=== PATIENT | female | born 1940 | race Caucasian/White ===

== ENCOUNTER → 2018-04-04 07:53 | Outpatient (CLI) | payer OTHER, SELFPAY ==
[2018-04-04 09:48] LABS: Hemoglobin A1C% w Est Avg Glu 5.7 % (4.0-6.0)
[2018-04-04 10:03] LABS: Glucose 96 mg/dL (80-110)
== END ==
PROVIDERS: Family Provider Internal Medicine; PCP Internal Medicine; Visit Provider Internal Medicine
DX: R73.01 Impaired fasting glucose (principal)
CPT/HCPCS: 36415; 82947; 83036

== ENCOUNTER → 2018-07-06 11:56 | Outpatient (CLI) | payer OTHER, SELFPAY ==
--- NOTE | 2018-07-06 | DI.MG.S_ITS ---
BILATERAL DIGITAL SCREENING MAMMOGRAM 3D/2D WITH CAD: 07/06/2018 CLINICAL: Routine screening. Family history of breast cancer. Comparison is made to exams dated: 06/29/2017 mammogram, 06/27/2016 mammogram, and 06/25/2015 mammogram - [facility]. The tissue of both breasts is heterogeneously dense. This may lower the sensitivity of mammography. Current study was also evaluated with a Computer Aided Detection (CAD) system. There is a focal asymmetry in the right breast at 12 o'clock middle depth. No other significant masses, calcifications, or other findings are seen in either breast. IMPRESSION: INCOMPLETE: NEEDS ADDITIONAL IMAGING EVALUATION The focal asymmetry in the right breast is indeterminate. Additional views with possible ultrasound are recommended. This exam was interpreted at Station ID: [id number]. NOTE: For mammograms, a report in lay terms will be sent to the patient. Approximately 15% of breast malignancies will not be visualized mammographically. In the management of a palpable breast mass, a negative mammogram must not discourage biopsy of a clinically suspicious lesion. Electronically Signed By: Camila palomino/carlos alberto:07/07/2018 09:28:46 letter sent: Additional Imaging Needed ACR BI-RADS Category 0: Incomplete 3340F
== END ==
PROVIDERS: PCP Internal Medicine; Visit Provider Internal Medicine
DX: Z12.31 Encounter for screening mammogram for malignant neoplasm of breast (principal); Z80.3 Family history of malignant neoplasm of breast
CPT/HCPCS: 77063; 77067

== ENCOUNTER → 2018-07-18 10:34 | Outpatient (CLI) | payer OTHER, SELFPAY | PROVIDERS: PCP Internal Medicine; Visit Provider Obstetrics & Gynecology | DX: N89.8 Other specified noninflammatory disorders of vagina (principal) | CPT/HCPCS: 87070; 87077; 87186; 87205 ==

== ENCOUNTER → 2018-07-24 14:53 | Outpatient (CLI) | payer OTHER, SELFPAY ==
--- NOTE | 2018-07-24 | DI.US.S_ITS ---
LIMITED ULTRASOUND OF RIGHT BREAST: 07/24/2018 CLINICAL: Patient returns today to evaluate an asymmetry in the right breast, which resolved with additional diagnostic mammogram views. Comparison is made to exams dated: 07/24/2018 mammogram, 07/06/2018 mammogram, and 06/29/2017 mammogram - [facility]. Color flow and real-time ultrasound of the right breast 12 o'clock region were performed. Moy scale images of the real-time examination were reviewed. No underlying breast mass or abnormality is identified. There is no ultrasound correlate for the previously noted focal asymmetry in the right breast at 12 o'clock middle depth on comparison screening mammograms, which also resolved on additional diagnostic views performed earlier today. IMPRESSION: NEGATIVE There is no sonographic evidence of malignancy in the imaged portions of the right breast. Return to annual screening mammography is recommended. The patient is advised to monitor her breasts and to return sooner for re-evaluation should she feel anything grow or change. This exam was interpreted at Station ID: [id number]. Electronically Signed By: Jose Manuel Saldivar M.D. ecl/:07/24/2018 16:18:44 letter sent: Normal Exam Ultrasound BI-RADS: 1 Negative
--- NOTE | 2018-07-24 | DI.MG.S_ITS ---
UNILATERAL RIGHT DIGITAL DIAGNOSTIC MAMMOGRAM 3D/2D WITH ADDITIONAL VIEWS: 07/24/2018 CLINICAL: Additional evaluation requested from prior study. Family history of breast cancer. Comparison is made to exams dated: 07/06/2018 mammogram, 06/29/2017 mammogram, and 06/27/[address] mammogram - [facility]. The tissue of right breast is heterogeneously dense. This may lower the sensitivity of mammography. Previously noted focal asymmetry in the right breast at 12 o'clock middle depth on comparison screening mammogram resolves with additional views and likely represented superimposition of benign anatomic tissues. No significant masses, calcifications, or other findings are seen in the breast. IMPRESSION: INCOMPLETE: NEEDS ADDITIONAL IMAGING EVALUATION Previously noted focal asymmetry in the right breast at 12 o'clock middle depth on comparison screening mammogram resolves with additional views and likely represented superimposition of benign anatomic tissues. A targeted ultrasound is recommended and will be performed immediately following this exam. This exam was interpreted at Station ID: [id number]. NOTE: For mammograms, a report in lay terms will be sent to the patient. Approximately 15% of breast malignancies will not be visualized mammographically. In the management of a palpable breast mass, a negative mammogram must not discourage biopsy of a clinically suspicious lesion. Electronically Signed By: Jose Manuel Saldivar M.D. ecl/:07/24/2018 16:16:33 letter sent: Additional Imaging Needed ACR BI-RADS Category 0: Incomplete 3340F
== END ==
PROVIDERS: PCP Internal Medicine; Visit Provider Internal Medicine
DX: R92.8 Other abnormal and inconclusive findings on diagnostic imaging of breast (principal); Z80.3 Family history of malignant neoplasm of breast
CPT/HCPCS: 76642; 77065; G0279

== ENCOUNTER → 2018-09-27 08:16 | Outpatient (CLI) | payer OTHER, SELFPAY ==
[2018-09-27 09:38] LABS: Cholesterol 270 mg/dL (140-199); Cortisol AM (Before 10AM) 13.5 ug/dL (4.46-22.7); Glucose 112 mg/dL (80-110); HDL Cholesterol 46 mg/dL (40-60); LDL Cholesterol Calculated 198 mg/dL (<100); Triglycerides 130 mg/dL (35-150)
[2018-09-27 09:57] LABS: Vitamin B12 498 pg/mL (239-931)
[2018-09-27 11:33] LABS: Vitamin D 25 Hydroxy (D3) 36.1 ng/mL (30.0-100.0)
[2018-09-27 11:41] LABS: Thyroid Stimulating Hormone 0.53 uIU/mL (0.47-4.68)
[2018-09-27 11:46] LABS: Free T4, Direct Thyroxine 1.32 ng/dL (0.78-2.19)
[2018-09-29 16:25] LABS: Homocysteine 8.7 umol/L (< 10.4)
== END ==
PROVIDERS: PCP Internal Medicine; Visit Provider Internal Medicine
DX: E03.9 Hypothyroidism, unspecified (principal); E53.8 Deficiency of other specified B group vitamins; R73.01 Impaired fasting glucose
CPT/HCPCS: 36415; 80061; 82306; 82533; 82607; 82947; 83090; 84439; 84443; 84481

== ENCOUNTER → 2018-11-01 13:17 | Outpatient (CLI) | payer OTHER, SELFPAY ==
[2018-11-01 16:31] LABS: BUN Creatinine Ratio 18.6 (6-22); Blood Urea Nitrogen 13 mg/dL (7-17); Calcium 9.4 mg/dL (8.4-10.2); Carbon Dioxide 26 mmol/L (22-32); Chloride 101 mmol/L (98-107); Estimated Glomerular Filt Rate > 60.0 mL/min (>60); Glucose 87 mg/dL (80-110); HEMOLYSIS < 15 (0-50); Potassium 4.9 mmol/L (3.4-5.1); Sodium 137 mmol/L (137-145)
== END ==
PROVIDERS: PCP Internal Medicine; Visit Provider Urology
DX: N39.41 Urge incontinence (principal); R35.1 Nocturia; R33.9 Retention of urine, unspecified
CPT/HCPCS: 36415; 80048; 87077; 87086; 87186

== ENCOUNTER → 2018-11-08 16:06 | Outpatient (CLI) | payer OTHER, SELFPAY ==
[2018-11-10 20:23] LABS: Anti Thyroglobulin Antibody < 1 IU/mL (< 2); Thyroid Peroxidase Antibodies 1 IU/mL (< 9)
== END ==
PROVIDERS: PCP Internal Medicine; Visit Provider Internal Medicine
DX: E03.9 Hypothyroidism, unspecified (principal)
CPT/HCPCS: 36415; 86376; 86800

== ENCOUNTER 2019-01-04 09:34 | Emergency (ER) | payer OTHER, SELFPAY ==
[2019-01-04] VITALS (9 sets, daily range): BP systolic 122–182; BP diastolic 53–71; PULSE 59–71; RESP 11–23; TEMP 36.9; O2SAT 95–100
--- NOTE | 2019-01-04 10:08 | ED.CHESTPAIN ---
HPI - Chest Pain General Chief Complaint: Chest Pain Stated Complaint: think she's possibly having a heart attack. Time Seen by Provider: 01/04/19 09:53 Source: patient Mode of arrival: ambulatory Limitations: no limitations History of Present Illness HPI narrative: Is a 78-year-old female who presents with chest discomfort. She says she was chopping up a hard boiled egg when she got extremely short of breath diaphoretic and nauseous. She got all lightheaded felt like she might pass out but she did not. She did not vomit. She really had no severe chest pain. However she has educated herself on a woman with cardiovascular disease and thought this might be a heart attack. She has resisted taken statin. She actually had a calcium score done a few years ago she said it showed some mild to moderate blockage. She still did not take a statin. She was able to refer herself for repeat scan this month which now showed that she had high calcium deposits in that artery now. She is supposed to have an appointment with Cardiology in [place] Records received from [employer]. She actually did have a calcium scoring test done on 12/25/2018 she did score of 359. Up from her previous score in July of 2016 of 262 Pain radiation: none Relieving factors: rest Exacerbating factors: exertion Treatments prior to arrival chest pain: aspirin (patient took at home. ) Related Data Home Medications Medication Instructions Recorded Confirmed MULTIVITAMIN 1 cap PO QDAY #0 01/26/13 12/12/18 VITAMIN B COMPLEX (Vitamin B 1 tab PO QDAY #0 01/26/13 12/12/18 Complex) [VITAMIN C] 500 mg PO Q DAY #0 01/26/13 12/12/18 [VITAMIN D] 2,000 mg PO Q DAY #0 01/26/13 12/12/18 [VITAMIN E] Q DAY #0 01/26/13 12/12/18 OMEGA-3 FATTY ACIDS (FISH OIL) 1,000 mg PO #0 07/12/16 12/12/18 cyclosporine [Restasis] 1 drp OPHTH Q12H #0 07/12/16 12/12/18 [CO-Q 10] 300 mg PO QDAY #0 07/15/16 12/12/18 [CRANBERRY EXTRACT] 300 mg PO BID #0 07/15/16 12/12/18 cyanocobalamin (vitamin B-12) 1,000 mcg PO QDAY #0 07/15/16 12/12/18 levothyroxine 88 mcg tablet 75 mcg PO QAM #0 tab 04/17/18 12/12/18 conjugated estrogens 0.3 mg tablet 0.3 mg PO DAILY 07/18/18 12/12/18 progesterone micronized 100 mg 100 mg PO QAM 07/18/18 12/12/18 capsule Previous Rx's Medication Instructions Recorded CMP Estriol 0.2 See Rx Instructions .ROUTE 05/22/18 .COMPLEX #30 fluconazole 150 mg tablet 150 mg PO ONCE #2 tab 12/12/18 Allergies Allergy/AdvReac Type Severity Reaction Status Date / Time wheat Allergy Mild Verified 08/28/18 08:36 ciprofloxacin AdvReac Mild VOMITING Verified 08/28/18 08:36 fosfomycin [From Monurol] AdvReac Mild Diarrhea Verified 11/09/18 11:27 gluten [GLUTEN] AdvReac Mild DIARRHEA, Verified 08/28/18 08:36 BLOATING hydrocodone AdvReac Mild VOMITING Verified 08/28/18 08:36 Review of Systems Review of Systems ROS Unobtainable: All systems reviewed & are unremarkable except as noted in HPI and below Constitutional Denies chills, Denies fatigue, Denies fever(s), Denies lethargy and Denies weakness Eyes Denies change in vision, Denies eye discharge, Denies irritation and Denies loss of vision ENT Ears, Nose, Mouth, and Throat: Denies change in voice, Denies dizziness, Denies neck pain and Denies sore throat Cardiovascular Denies syncope, Denies rapid heart rate, Denies edema, Reports lightheadedness, Reports dyspnea and Denies dyspnea on exertion Respiratory Denies cough, Reports dyspnea, Denies dyspnea on exertion and Denies wheezing Gastrointestinal Gastrointestinal: Denies abdominal pain, Denies diarrhea, Reports nausea and Denies vomiting Genitourinary Denies hematuria, Denies flank pain, Denies urinary incontinence and Denies urinary urgency Musculoskeletal Denies neck pain Integumentary/Breasts Denies pruritus, Denies erythema, Denies rash and Denies wounds Neurologic Denies dizziness, Denies syncope, Denies loss of vision and Denies weakness Endocrine Denies fatigue and Denies flushing Allergic/Immunologic Denies wheezing [facility] Medical History Bladder dysfunction (Chronic) Thyroid disorder (Chronic) Surgical History History of bladder surgery (Resolved 1994) History of bladder suspension procedure (Resolved 1989) History of bladder suspension procedure (Resolved ~1984) History of bladder suspension procedure (Resolved 1979) History of third molar tooth extraction (Resolved) Status post tubal ligation (Resolved ~1970) Family History (Updated 04/10/18 @ 15:42 by Jackeline Benson) Father Heart disease Grandfather Heart disease Grandmother Cancer Mother Cancer Grandfather Lung cancer Grandmother No problems noted. Family/Other Diabetes mellitus Social History marital status: Smoking Status: Never smoker Family History Father Heart disease Grandfather Heart disease Grandmother Cancer Mother Cancer Grandfather Lung cancer Grandmother No problems noted. Family/Other Diabetes mellitus Social History marital status: Smoking Status: Never smoker Exam Initial Vital Signs Initial Vital Signs: Vital Signs Temperature 98.5 F 01/04/19 09:48 Pulse Rate 70 01/04/19 09:48 Respiratory Rate 20 01/04/19 09:48 Blood Pressure 182/71 H 01/04/19 09:48 Pulse Oximetry 98 01/04/19 09:48 GENERAL: [Well-appearing, well-nourished] and in [no acute] distress. HEENT: Head atraumatic,EOMI, pupils reactive, CARDIOVASCULAR: Regular rate and rhythm without murmurs, rubs or gallops. RESPIRATORY: Breath sounds equal bilaterally, no wheezes rales or rhonchi. ABDOMEN: Soft, nontender. Normoactive bowel sounds all 4 quadrants. No guarding or rebound. EXTREMITIES: Normal range of motion, no clubbing or edema. Neurovascularly intact NEUROLOGICAL: Alert and oriented x4.Normal gait and speech. Cranial nerves II through XII grossly intact. SKIN: Warm, dry, no laceration, no petechiae, no rashes or lesions. Course Orders Ordered: ED Orders 01/04/19 09:42 EKG-12 Lead Routine 01/04/19 09:46 Complete Blood Count AUTO DIFF Stat Comprehensive Metabolic Panel Stat Lipase Stat Troponin & CK Cardiac Panel Stat 01/04/19 10:18 XR chest 1V Stat 01/04/19 12:50 Troponin I Stat Vital Signs - 8 hr 01/04/19 09:48 01/04/19 10:04 01/04/19 11:00 Temperature 98.5 F Pulse Rate 70 61 68 Respiratory Rate 20 16 11 L Blood Pressure 182/71 H Blood Pressure [Right Arm] 141/53 H 137/57 L Pulse Oximetry 98 96 95 01/04/19 11:50 01/04/19 12:33 01/04/19 13:01 Temperature Pulse Rate 59 L 60 64 Respiratory Rate 17 11 L 15 Blood Pressure Blood Pressure [Right Arm] 156/71 H 138/53 L 144/67 H Pulse Oximetry 100 98 99 01/04/19 13:48 01/04/19 14:11 01/04/19 14:35 Temperature Pulse Rate 68 69 71 Respiratory Rate 13 15 23 Blood Pressure Blood Pressure [Right Arm] 130/60 138/60 122/66 Pulse Oximetry 97 97 97 MDM - Chest Pain Lab Data Attestation: I reviewed the patient's lab results. Result diagrams: 01/04/19 09:46 01/04/19 09:46 Lab Results 01/04/19 01/04/19 01/04/19 Range/Units 09:46 09:46 12:50 WBC 7.2 (4.5-11.0) X10^3/uL RBC 4.58 (4.0-5.2) X10^6/uL Hgb 15.2 (12.0-16.0) g/dL Hct 44.0 (36-46) % MCV 96.3 (80-100) fL MCH 33.1 (26-34) PG MCHC 34.4 (30-36) % RDW 13.2 (11.6-14.8) % Plt Count 321 (150-400) X10^3/uL Neut % (Auto) 51.3 (50-75) % Lymph % (Auto) 35.9 (25-40) % Bland % (Auto) 8.1 (3-14) % Eos % (Auto) 4.1 H (2-4) % Baso % (Auto) 0.6 (0-2) % Neut # (Auto) 3700 (3577-0707) /uL Lymph # (Auto) 2600 (6979-7095) /uL Bland # (Auto) 600 (0-900) /uL Eos # (Auto) 300 (0-450) /uL Baso # (Auto) 0 (0-100) /uL Sodium 139 (137-145) mmol/L Potassium 4.1 (3.4-5.1) mmol/L Chloride 102 (98-107) mmol/L Carbon Dioxide 26 (22-32) mmol/L BUN 13 (7-17) mg/dL Creatinine 0.70 (0.52-1.04) mg/dL Estimated GFR > 60.0 (>60) mL/min BUN/Creatinine Ratio 18.6 (6-22) Glucose 113 H (80-110) mg/dL Calcium 9.7 (8.4-10.2) mg/dL Total Bilirubin 1.0 (0.2-1.3) mg/dL AST 35 (14-36) IU/L ALT 18 (9-52) IU/L Alkaline Phosphatase 53 (38-126) U/L Total Creatine Kinase 45 (30-135) U/L CK-MB (CK-2) TNP CK-MB (CK-2) Rel Index TNP Troponin I < 0.012 < 0.012 (0.01-0.034) ng/mL Total Protein 7.7 (6.3-8.2) g/dL Albumin 4.6 (3.5-5.0) g/dL Globulin 3.1 (1.7-4.1) g/dL Albumin/Globulin Ratio 1.5 (1.0-2.8) Lipase 85 (23-300) U/L Point of Care Testing Glucose POC 115 Urine Dip Bedside Urine Glucose Negative Bedside Urine Bilirubin - Negative Bedside Urine Ketone - Negative Urine Specific Dale 1.015 Bedside Urine Occult Blood +/- Bedside Urine pH 6.0 Bedside Urine Protein +/- 15 Bedside Urine Urobilinogen - Negative Bedside Urine Nitrite - Negative Bedside Urine Leukocytes - Negative Esterase Imaging Data Chest x-ray: Radiologist's impression: PROCEDURE: XR CHEST 1V INDICATIONS: chest pain TECHNIQUE: One view of the chest was acquired. COMPARISON: None. FINDINGS: Surgical changes and devices: None. Lungs and pleura: Lungs are clear. No pleural effusions or pneumothorax. Mediastinum: Mediastinal contours appear normal. Heart size is normal. Bones and chest wall: No suspicious bony lesions. Overlying soft tissues appear unremarkable. IMPRESSION: No acute cardiopulmonary disease process. Dictated by: Janice Geronimo MD, PhD on 01/04/2019 at 10:43 ECG Data Attestation: I personally reviewed and interpreted this ECG as follows: Prior ECG tracings: available for review Interpretation: EKG 1.: Sinus rhythm rate 63 year interval 137 T-wave inversions noted in lead [address] changes no prior to compare EKG 2. Sinus rhythm rate 64 year interval 140 persistent T-wave inversion noted in lead 3 no changes from prior MDM Narrative Medical decision making narrative: I discussed case with Dr. steele hospitalist who tried to arrange for a stress test today. However this was unavailable this afternoon and stress test over the weekend is not available. Due to patient's calcium score and symptoms today I feel as though she needs a stress test as as soon as possible. I spoke with Dr. Gilbert, who agrees with transfer to [facility]. I discussed test results with patient and and need to have stress test. Patient is agreeable to be transferred and understands importance of stress testing. Discharge Plan Departure Patient Disposition: [facility] Clinical Impression: Chest pain Qualifiers: Chest pain type: unspecified Qualified Code(s): R07.9 - Chest pain, unspecified Discharge Date/Time: 01/04/19 15:22 Interventions: ED Discharge Assessment Last Done: 01/04/19 15:10 Prescriptions: No Action [VITAMIN C] 500 mg PO Q DAY Qty: 0 RF: 0 [VITAMIN D] 2,000 mg PO Q DAY Qty: 0 RF: 0 [VITAMIN E] Q DAY Qty: 0 RF: 0 MULTIVITAMIN 1 cap PO QDAY Qty: 0 RF: 0 VITAMIN B COMPLEX (Vitamin B Complex) 1 tab PO QDAY Qty: 0 RF: 0 OMEGA-3 FATTY ACIDS (FISH OIL) 1,000 mg PO Qty: 0 RF: 0 cyclosporine [Restasis] 1 EACH dropperette 1 drp OPHTH Q12H Qty: 0 RF: 0 [CRANBERRY EXTRACT] 300 mg PO BID Qty: 0 RF: 0 cyanocobalamin (vitamin B-12) 1,000 MCG tablet extended release 1,000 mcg PO QDAY Qty: 0 RF: 0 [CO-Q 10] 300 mg PO QDAY Qty: 0 RF: 0 levothyroxine [Synthroid] 88 mcg tablet 75 mcg PO QAM Qty: 0 RF: 0 CMP Estriol 0.2 See Rx Instructions .ROUTE .COMPLEX Qty: 30 RF: 3 fluconazole [Diflucan] 150 mg tablet 150 mg PO ONCE Qty: 2 RF: 0 progesterone micronized 100 mg capsule 100 mg PO QAM RF: 0 conjugated estrogens 0.3 mg tablet 0.3 mg PO DAILY RF: 0 Referrals: Mandie Gautam MD [Primary Care Provider] -
--- NOTE | 2019-01-04 10:18 | DI.RAD.S_ITS ---
PROCEDURE: XR CHEST 1V INDICATIONS: chest pain TECHNIQUE: One view of the chest was acquired. COMPARISON: None. FINDINGS: Surgical changes and devices: None. Lungs and pleura: Lungs are clear. No pleural effusions or pneumothorax. Mediastinum: Mediastinal contours appear normal. Heart size is normal. Bones and chest wall: No suspicious bony lesions. Overlying soft tissues appear unremarkable. IMPRESSION: No acute cardiopulmonary disease process. Dictated by: Janice Geronimo MD, PhD on 01/04/2019 at 10:43 Approved by: Janice Geronimo MD, PhD on 01/04/2019 at 10:50
[2019-01-04 10:26] LABS: Add Manual Diff / Slide Review NO; Basophils Absolute Auto 0 /uL (0-100); Basophils Percent Auto 0.6 % (0-2); Eosinophils Absolute Auto 300 /uL (0-450); Eosinophils Percent Auto 4.1 % (2-4); Hemoglobin 15.2 g/dL (12.0-16.0); Lymphocytes Absolute Auto 2600 /uL (1100-4500); Lymphocytes Percent Auto 35.9 % (25-40); Mean Corpuscular HGB Conc 34.4 % (30-36); Mean Corpuscular Hemoglobin 33.1 PG (26-34); Mean Corpuscular Volume 96.3 fL (80-100); Monocytes Absolute Auto 600 /uL (0-900); Monocytes Percent Auto 8.1 % (3-14); Neutrophils Absolute Auto 3700 /uL (1500-7000); Neutrophils Percent Auto 51.3 % (50-75); Platelet Count 321 X10^3/uL (150-400); Red Blood Cell Count 4.58 X10^6/uL (4.0-5.2); Red Cell Distribution Width 13.2 % (11.6-14.8); White Blood Cell Count 7.2 X10^3/uL (4.5-11.0)
[2019-01-04 10:31] LABS: Alanine Aminotransferase 18 IU/L (9-52); Albumin 4.6 g/dL (3.5-5.0); Albumin Globulin Ratio 1.5 (1.0-2.8); Alkaline Phosphatase 53 U/L (38-126); Aspartate Aminotransferase 35 IU/L (14-36); BUN Creatinine Ratio 18.6 (6-22); Blood Urea Nitrogen 13 mg/dL (7-17); Calcium 9.7 mg/dL (8.4-10.2); Carbon Dioxide 26 mmol/L (22-32); Chloride 102 mmol/L (98-107); Creatine Kinase 45 U/L (30-135); Estimated Glomerular Filt Rate > 60.0 mL/min (>60); Globulin 3.1 g/dL (1.7-4.1); Glucose 113 mg/dL (80-110); HEMOLYSIS < 15 (0-50); Lipase 85 U/L (23-300); Potassium 4.1 mmol/L (3.4-5.1); Sodium 139 mmol/L (137-145); Total Protein 7.7 g/dL (6.3-8.2)
[2019-01-04 10:43] LABS: Troponin I < 0.012 ng/mL (0.01-0.034)
[2019-01-04 13:31] LABS: Troponin I < 0.012 ng/mL (0.01-0.034)
== END 2019-01-04 15:22 | disposition short-term general hospital (02) ==
PROVIDERS: Emergency Provider Emergency Medicine; PCP Internal Medicine
DX: R07.9 Chest pain, unspecified (principal); R06.02 Shortness of breath; R61 Generalized hyperhidrosis; R11.0 Nausea
CPT/HCPCS: 36415; 36591; 71045; 80053; 81003; 82550; 82962; 83690; 84484; 85025; 93005; 93010; 93041; 99285

== ENCOUNTER → 2019-07-11 10:06 | Outpatient (CLI) | payer OTHER, SELFPAY ==
--- NOTE | 2019-07-26 07:53 | P.HOLT.S_ITS ---
[employer] Report Referral & Results Date Patient Seen: 07/11/19 Requesting provider: Conchita Hirsch Indication: Palpitations Duration of monitoring (days): 7 Diary information: There were no patient diary entries or patient triggered events to correlate with symptoms and dysrhythmias Data: Minimum heart rate identified was 49 beats per minute at 01:19 on [place] [id number] Maximum sinus heart rate was 152 beats per minute at 15:27 on 07/11/2019 Maximum overall heart rate was 169 beats per minute at 15:25 on 07/11/2019 during a 9 beat run of probable SVT Less than 1% of identified beats or either ventricular supraventricular ectopic in origin There were 28 runs of SVT or atrial tachycardia. The fastest was 9 beats at a rate of 169 beats per minute the longest lasted 17 beats at a rate of 131 beats per minute which suggest atrial tachycardia rather than true SVT Impression: No clear evidence of etiology for patient's reported symptoms of palpitations. Minor dysrhythmias noted as above Clinical correlation suggested
== END ==
PROVIDERS: PCP Student in an Organized Health Care Education/Training Program; Visit Provider Internal Medicine
DX: R00.2 Palpitations (principal)
CPT/HCPCS: 0296T; 0298T

== ENCOUNTER → 2019-07-22 14:58 | Outpatient (CLI) | payer OTHER, SELFPAY ==
--- NOTE | 2019-07-22 | DI.MG.S_ITS ---
BILATERAL DIGITAL SCREENING MAMMOGRAM 3D/2D WITH CAD: 07/22/2019 CLINICAL: Routine screening. Family history of breast cancer. Comparison is made to exams dated: 07/06/2018 mammogram, 06/29/2017 mammogram, 06/27/2016 mammogram, 06/25/2015 mammogram, and 01/15/2014 mammogram - [facility]. The tissue of both breasts is heterogeneously dense. This may lower the sensitivity of mammography. Current study was also evaluated with a Computer Aided Detection (CAD) system. No significant masses, calcifications, or other findings are seen in either breast. There has been no significant interval change. IMPRESSION: NEGATIVE There is no mammographic evidence of malignancy. A 1 year screening mammogram is recommended. This exam was interpreted at Station ID: [id number]. NOTE: For mammograms, a report in lay terms will be sent to the patient. Approximately 15% of breast malignancies will not be visualized mammographically. In the management of a palpable breast mass, a negative mammogram must not discourage biopsy of a clinically suspicious lesion. Electronically Signed By: Yash saenz/carlos alberto:07/22/2019 18:09:11 letter sent: Normal Exam ACR BI-RADS Category 1: Negative [id number]
== END ==
PROVIDERS: PCP Student in an Organized Health Care Education/Training Program; Visit Provider Student in an Organized Health Care Education/Training Program
DX: Z12.31 Encounter for screening mammogram for malignant neoplasm of breast (principal); Z80.3 Family history of malignant neoplasm of breast
CPT/HCPCS: 77063; 77067

== ENCOUNTER → 2019-09-12 13:13 | Outpatient (CLI) | payer OTHER, SELFPAY ==
--- NOTE | 2019-09-12 | DI.RAD.S_ITS ---
PROCEDURE: XR KNEE LT 3V INDICATIONS: LEFT KNEE PAIN TECHNIQUE: 3 views of the knee were acquired. COMPARISON: None. FINDINGS: Bones: No fractures or dislocations. No suspicious bony lesions. Chondrocalcinosis projects in the medial lateral compartments. No definite joint space narrowing Scattered degenerative subchondral sclerosis and spurring. Presumed punctate ununited osteophyte seen at the medial tibial plateau Soft tissues: No joint effusion. No suspicious soft tissue calcifications. IMPRESSION: Left knee chondrocalcinosis and mild joint degeneration as above Dictated by: Donald Abraham M.D. on 09/12/2019 at 15:41 Approved by: Donald Abraham M.D. on 09/12/2019 at 15:43
== END ==
PROVIDERS: PCP Student in an Organized Health Care Education/Training Program; Visit Provider Student in an Organized Health Care Education/Training Program
DX: M25.562 Pain in left knee (principal); M11.262 Other chondrocalcinosis, left knee; M17.12 Unilateral primary osteoarthritis, left knee; Z78.0 Asymptomatic menopausal state; E07.9 Disorder of thyroid, unspecified
CPT/HCPCS: 73562; 77080

== ENCOUNTER → 2019-09-29 12:48 | Outpatient (CLI) | payer OTHER, SELFPAY ==
--- NOTE | 2019-09-29 | DI.MRI.S_ITS ---
PROCEDURE: MR KNEE LT WO CON INDICATIONS: Pain in right knee TECHNIQUE: Noncontrast sagittal PD fast spin echo and T2 fast spin echo with fat saturation, sagittal 3-D FLASH with fat saturation; coronal T1 spin echo and PD fast spin echo with fat saturation, and axial PD fast spin echo with fat saturation through the knee. COMPARISON: None. FINDINGS: Image quality: Excellent. Menisci: Medial meniscal tear involving the body, image 18/11. There is also abnormal internal signal involving the posterior root on image 13/8. Minimal partial extrusion of the body is seen on image 16/11 There is minimal blunting of the free margin of the body of the lateral meniscus. Cruciate ligaments: Anterior cruciate ligament appears intact. However, there is mild periligamentous signal change in T2 hyperintensity. Posterior cruciate ligament appears intact. Medial structures: There is medial bowing of the medial collateral ligament, with mild internal signal changes and no complete rupture. There is adjacent soft tissue edema. The appearance could reflect reactive changes to medial compartment pathology, versus low-grade sprain of the MCL. Pes anserinus tendons appear grossly unremarkable. Semimembranosus tendon appears intact. Lateral structures: The lateral collateral ligament intact. Biceps femoris tendon appears intact. Popliteus tendon grossly unremarkable. Iliotibial band appears intact. Anterior structures: Quadriceps tendon intact. Medial and lateral patellofemoral ligaments intact. There is mild patellar tendinopathy. Prepatellar and superficial infrapatellar subcutaneous edema/fluid. Bones and cartilage: No focal marrow contusion or discrete low signal fracture line. Within the medial compartment, low-grade surface fraying of the femoral tibial articular cartilage Within the lateral compartment, intrasubstance signal change involving the central weightbearing tibial cartilage. The femoral cartilage appears grossly intact Within the patellofemoral compartment, diffuse partial-thickness loss of the patellar cartilage with subchondral marrow edema and cystic change. The femoral trochlear cartilage appears grossly intact. Joint space: Trace joint effusion. There is a large Culver's cyst. This measures approximately 7 cm in the cephalocaudad dimension. No specific evidence of intra-articular loose body. Small ganglion cyst at the origin of the medial gastrocnemius tendon. 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 Patellar tendinopathy with adjacent fluid/edema. ACL appears grossly intact however there is mild ill-defined periligamentous T2 hyperintensity/edema raising the possibility of early mucoid degeneration versus low-grade sprain. Please correlate clinically. Dictated by: Donald Abraham M.D. on 09/30/2019 at 10:11 Approved by: Donald Abraham M.D. on 09/30/2019 at 10:20
== END ==
PROVIDERS: PCP Student in an Organized Health Care Education/Training Program; Referring Provider Student in an Organized Health Care Education/Training Program; Visit Provider Student in an Organized Health Care Education/Training Program
DX: M25.562 Pain in left knee (principal); S83.242A Other tear of medial meniscus, current injury, left knee, initial encounter; M71.22 Synovial cyst of popliteal space [Baker], left knee; M17.12 Unilateral primary osteoarthritis, left knee; M67.962 Unspecified disorder of synovium and tendon, left lower leg
CPT/HCPCS: 73721

== ENCOUNTER 2019-10-31 14:30 | Outpatient (RCR) | payer OTHER, SELFPAY ==
--- NOTE | 2019-10-16 11:01 | PT.OIE ---
Current Diagnoses Patellofemoral disorders, unspecified knee (10/16/19) Past Medical History (Last Reviewed 01/04/19 @ 11:01 by Sonam Freeman DO) Bladder dysfunction (Chronic) Thyroid disorder (Chronic) Past Surgical History (Last Reviewed 01/04/19 @ 11:01 by Sonam Freeman DO) History of bladder surgery (Resolved 1994) History of bladder suspension procedure (Resolved 1989) History of bladder suspension procedure (Resolved ~1984) History of bladder suspension procedure (Resolved 1979) History of third molar tooth extraction (Resolved) Status post tubal ligation (Resolved ~1970) Visit Care Team Role Provider Type Cynthia Palacios MD Attending Provider Physician Primary Care Provider Referring Provider Specialty: [facility] Address: [address] [place] [address] [place], [place], [facility] Email: [email or web address] Physical Therapy Initial Evaluation PT-OP-A Visit Information Start: 10/14/19 15:35 Freq: Status: Active Protocol: Document 10/16/19 08:52 MB (Rec: 10/16/19 09:58 MB [id number]) Out-Patient Physical Therapy Visit Information Visit Information Visit Type Initial Evaluation Visit Note [facility], 15 initial visits, $40 copay Visit Start Time 08:52 Visit Stop Time 09:55 Total Visit Minutes 63 Visit Number 1 Evaluation Information Evaluation Date 10/16/19 PT-OP-B Current Condition Start: 10/14/19 15:35 Freq: Status: Active Protocol: Document 10/16/19 08:52 MB (Rec: 10/16/19 09:58 MB [id number]) Current Condition History of Current Condition Onset Date 1 month History of Current Condition Pt reports she was walking upstairs in her house and she heard a crack and like a chunk of my left knee fell off . The pain was 10.5/10. The pain was so bad that she thought she might pass out. She had increased pain with bending left knee. She can stand on it but cannot put weight on her left foot when she has her knee bent. When she gets up from sitting for a while, getting up and the first two steps are problematic. She is not using a cane or walker. She feels like she is back to normal and doing normal ADLs. She lives with her . She does a yoga class and cannot currently do some yoga moves. About her steps at home: She has two handrails. She has 16 steps there. She has a game room upstairs. She does not have to go upstairs. Pt reports 3-4/10 pain in left knee and 2/10 pain in right knee currently. She has most pain in left knee when walking up stairs or slope. Last year , she got soreness in both legs near her calves. She stopped her statin at that time. She does not have a medication list on her today. She has a history of 2-3/10 neck pain and bladder surgery and dysfunction. She has a chronic stiff neck. She gets massage and daycare manager 2x/month. She has nothing wrong as found by monitor car operator. She has no chest pain . She felt her heart was racing. She sleeps on her side with no pillow support between her knees. She sees Dr. Diez tomorrow for orthopedic consult. She follows-up with Dr. Palacios next week. 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 It didn't make too much difference PT-OP-C Subjective Start: 10/14/19 15:35 Freq: Status: Active Protocol: Document 10/16/19 08:52 MB (Rec: 10/16/19 09:58 MB [id number]) OP-PT Subjective Patient Comments Patient Comments Pt's goals for therapy are to stop pain and improve balance. Patient Questionnaires Lower Extremity Functional Scale LEFS Score 60 LEFS Impairment 20 to 39% Impaired (Score 48- 62) PT-OP-D Balance Start: 10/14/19 15:35 Freq: Status: Active Protocol: Document 10/16/19 08:52 MB (Rec: 10/16/19 10:38 MB [id number]) Balance Tests Romberg Romberg EC and EO 30 sec Single Limb Standing Single Limb- Right 9 sec Single Limb- Left 1 sec PT-OP-J Posture/Palpation/Skin Start: 10/14/19 15:35 Freq: Status: Active Protocol: Document 10/16/19 08:52 MB (Rec: 10/16/19 10:38 MB [id number]) Posture Evaluation Comments Posture Comments Standing: pt with severely decreased cervical lordosis and thoracic kyphosis, very flat. She presents with increased anterior tilt pelvis . She presents with mild right scapular elevation and protraction, increased B overpronation feet and increased hayley ankle on the right. PT-OP-K Range of Motion Start: 10/14/19 15:35 Freq: Status: Active Protocol: Document 10/16/19 08:52 MB (Rec: 10/16/19 10:59 MB [id number]) Knee Goniometric Range of Motion Knee Left Knee ROM WFL No Flexion Active (degrees) 109 Extension Active (degrees) 5 Right Knee ROM WFL Yes Flexion Active (degrees) 125 Extension Active (degrees) 0 PT-OP-M Strength Start: 10/14/19 15:35 Freq: Status: Active Protocol: Document 10/16/19 08:52 MB (Rec: 10/16/19 11:01 MB [id number]) Hip Strength Hip Manual Muscle Testing Left Flexion (L2) 4 Good Abduction 4 Good Right Flexion (L2) 4 Good Abduction 4 Good Knee Strength Knee Manual Muscle Testing Left Flexion (S2) 3+ Fair+ Comments Extension NT after injury Right Flexion (S2) 5 Normal Extension (L3) 4 Good Ankle/Foot Strength Ankle and Foot Manual Muscle Testing Left Dorsiflexion (L4) 5 Normal Comments Great toe extension 5/5 Right Dorsiflexion (L4) 5 Normal Comments Great toe extension 5/5 PT-OP-Q Treatments Start: 10/14/19 15:35 Freq: Status: Active Protocol: Document 10/16/19 08:52 MB (Rec: 10/16/19 10:34 MB [id number]) Therapeutic Exercises Supine Exercises HS Comments Performed and added to HEP Manual Therapy Treatment Taping Left knne Type of Tape Kinesio Tape Comments Black KT to support left knee: c strip under patella and B I strips medial and lateral knee Self-Care/Home Management Treatment Education Other Education Elevation, ice with frozen vegetables, heat, exercises, benefits of PT and plan, benefits of KT and when to doff PT-OP-T Assessment and Plan Start: 10/14/19 15:35 Freq: Status: Active Protocol: Document 10/16/19 08:52 MB (Rec: 10/16/19 10:59 MB [id number]) Physical Therapy Assessment Rehab Potential Rehabilitation Potential Good Evaluation Complexity Number of Personal Factors/Comorbidities 0 Number of Body Systems Impaired 1-2 Clinical Presentation at Evaluation Evolving Impairments Impairments Activity Tolerance,Balance, Gait,Pain,Posture,ROM,Soft Tissue Mobility,Strength Other Impairments Clinical presentation may be evolving d/t mechanical changes in knee with associated pain, popping after stepping event--positive MRI and pt has not yet seen orthopedist Goals 6 Nurse Transplant Goal (LTG) Pt will ascend and descend 16 steps with rail and no pain to allow safe home mobility by . LTG Duration 8 weeks 5 Fpc Goal (LTG) Pt will perform progressive HEP with I to improve flexibility, strength, balance and gait by 12/16/2019. LTG Duration 8 weeks 4 Fpc Goal (LTG) Pt will present with B hip flexion and abduction and B knee flexion and extension to 5/5 to allow normal strength for activities by 12/16/2019. LTG Duration 8 weeks 3 Fpc Goal (LTG) Pt will perform B SLS to 30 sec in socks to allow return to previous yoga level by 12/15. LTG Duration 8 weeks 2 Nurse Transplant Goal (LTG) Pt will present with left knee AROM 0-125 deg to improve sit to stands by 12/16/2019. LTG Duration 8 weeks 1 Nurse Transplant Goal (LTG) Pt will report an overall 75% improvement in left knee pain to allow her to return to stair ambulation with rail in home by 12/16/2019. LTG Duration 8 weeks Assessment Summary Assessment Pt is a 79 y/o female presenting with left knee pain after stepping up a step at home and hearing a popping sound in her left knee and experiencing severe pain that made her almost pass out. Her left knee MRI reveals many changes including medial meniscus tear. She meet with orthopedist tomorrow. Of note, she does report she is getting much better and only has discomfort with bending knee and WB, stairs, balance, some yoga poses and first steps after standing up. She presents with decreased balance, ROM, strength today with PT. She will benefit from PT for flexibility, strengthening, balance and gait training including steps. Barriers to PT include mechanical injury to left knee . Physical Therapy Plan Frequency and Duration Frequency of Treatment 2x/Week Duration of Treatment 8 weeks Plan of Care Start Date 10/16/19 Plan of Care End Date 12/16/19 Therapeutic Interventions Therapeutic Interventions Aquatic Therapy,Balance Training,Canalithic Repositioning,Gait Training, Home Exercise Program,Joint Mobilizations,Manual Therapy, Neuromuscular Re-education, Patient/Caregiver Education, Self-Care/Home Management,Soft Tissue Mobilization,Taping, Therapeutic Activities, Therapeutic Exercises Modalities Cold Pack/Ice Massage,Electric Stimulation,Hot Packs, Ultrasound Other Therapeutic Interventions LLT Next Visit Focus/Plan Next Note Type Treatment Note Next Visit Plan Initiate NuStep and further gentle exercises
--- NOTE | 2019-10-16 11:01 | PT.OPPOC ---
Physical, Occupational & Speech Therapy At [facility] Current Diagnoses Patellofemoral disorders, unspecified knee (10/16/19) Visit Care Team Role Provider Type Cynthia Palacios MD Attending Provider Physician Primary Care Provider Referring Provider Specialty: Family Practice Address: [address] [place] [address], [facility] [place], [address] Email: Plan Of Care PT-OP-T Assessment and Plan Start: 10/14/19 15:35 Freq: Status: Active Protocol: Document 10/16/19 08:52 MB (Rec: 10/16/19 10:59 MB [id number]) Physical Therapy Assessment Rehab Potential Rehabilitation Potential Good Evaluation Complexity Number of Personal Factors/Comorbidities 0 Number of Body Systems Impaired 1-2 Clinical Presentation at Evaluation Evolving Impairments Impairments Activity Tolerance,Balance, Gait,Pain,Posture,ROM,Soft Tissue Mobility,Strength Other Impairments Clinical presentation may be evolving d/t mechanical changes in knee with associated pain, popping after stepping event--positive MRI and pt has not yet seen orthopedist Goals 6 Custodial Goal (LTG) Pt will ascend and descend 16 steps with rail and no pain to allow safe home mobility by . LTG Duration 8 weeks 5 Custodial Goal (LTG) Pt will perform progressive HEP with I to improve flexibility, strength, balance and gait by 12/16/2019. LTG Duration 8 weeks 4 Dyeing Machine Tender Goal (LTG) Pt will present with B hip flexion and abduction and B knee flexion and extension to 5/5 to allow normal strength for activities by 12/16/2019. LTG Duration 8 weeks 3 Custodial Goal (LTG) Pt will perform B SLS to 30 sec in socks to allow return to previous yoga level by 12/15. LTG Duration 8 weeks 2 Custodial Goal (LTG) Pt will present with left knee AROM 0-125 deg to improve sit to stands by 12/16/2019. LTG Duration 8 weeks 1 Dyeing Machine Tender Goal (LTG) Pt will report an overall 75% improvement in left knee pain to allow her to return to stair ambulation with rail in home by 12/16/2019. LTG Duration 8 weeks Assessment Summary Assessment Pt is a 79 y/o female presenting with left knee pain after stepping up a step at home and hearing a popping sound in her left knee and experiencing severe pain that made her almost pass out. Her left knee MRI reveals many changes including medial meniscus tear. She meet with orthopedist tomorrow. Of note, she does report she is getting much better and only has discomfort with bending knee and WB, stairs, balance, some yoga poses and first steps after standing up. She presents with decreased balance, ROM, strength today with PT. She will benefit from PT for flexibility, strengthening, balance and gait training including steps. Barriers to PT include mechanical injury to left knee . Physical Therapy Plan Frequency and Duration Frequency of Treatment 2x/Week Duration of Treatment 8 weeks Plan of Care Start Date 10/16/19 Plan of Care End Date 12/16/19 Therapeutic Interventions Therapeutic Interventions Aquatic Therapy,Balance Training,Canalithic Repositioning,Gait Training, Home Exercise Program,Joint Mobilizations,Manual Therapy, Neuromuscular Re-education, Patient/Caregiver Education, Self-Care/Home Management,Soft Tissue Mobilization,Taping, Therapeutic Activities, Therapeutic Exercises Modalities Cold Pack/Ice Massage,Electric Stimulation,Hot Packs, Ultrasound Other Therapeutic Interventions LLT Next Visit Focus/Plan Next Note Type Treatment Note Next Visit Plan Initiate NuStep and further gentle exercises Plan of Care Dates Plan of Care Start Date 10/16/19 Plan of Care End Date 12/16/19 Electronically Signed by: Alma Peguero, PT 10/16/19 9101 Please Sign and Return: I have reviewed this Plan of Care and certify that the skilled therapy services above are required to meet the patient?s needs. Physician Signature Date Printed Name and Credentials Clinical Instructor Signature Printed Name and Credentials
--- NOTE | 2019-10-18 15:36 | PT.OTN ---
Current Diagnoses Patellofemoral disorders, unspecified knee (10/18/19) Physical Therapy Treatment Note PT-OP-A Visit Information Start: 10/14/19 15:35 Freq: Status: Active Protocol: Document 10/18/19 14:35 MB (Rec: 10/18/19 15:36 MB [id number]) Out-Patient Physical Therapy Visit Information Visit Information Visit Type Initial Evaluation Visit Note [facility], 15 initial visits, $40 copay Visit Start Time 14:35 Visit Stop Time 15:15 Total Visit Minutes 40 Visit Number 2 PT-OP-B Current Condition Start: 10/14/19 15:35 Freq: Status: Active Protocol: Document 10/16/19 08:52 MB (Rec: 10/16/19 09:58 MB [id number]) Current Condition History of Current Condition Onset Date 1 month History of Current Condition Pt reports she was walking upstairs in her house and she heard a crack and like a chunk of my left knee fell off . The pain was 10.5/10. The pain was so bad that she thought she might pass out. She had increased pain with bending left knee. She can stand on it but cannot put weight on her left foot when she has her knee bent. When she gets up from sitting for a while, getting up and the first two steps are problematic. She is not using a cane or walker. She feels like she is back to normal and doing normal ADLs. She lives with her . She does a yoga class and cannot currently do some yoga moves. About her steps at home: She has two handrails. She has 16 steps there. She has a game room upstairs. She does not have to go upstairs. Pt reports 3-4/10 pain in left knee and 2/10 pain in right knee currently. She has most pain in left knee when walking up stairs or slope. Last year , she got soreness in both legs near her calves. She stopped her statin at that time. She does not have a medication list on her today. She has a history of 2-3/10 neck pain and bladder surgery and dysfunction. She has a chronic stiff neck. She gets massage and career development associate 2x/month. She has nothing wrong as found by digital ad trafficker. She has no chest pain . She felt her heart was racing. She sleeps on her side with no pillow support between her knees. She sees Dr. Diez tomorrow for orthopedic consult. She follows-up with Dr. Palacios next week. 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 It didn't make too much difference PT-OP-C Subjective Start: 10/14/19 15:35 Freq: Status: Active Protocol: Document 10/18/19 14:35 MB (Rec: 10/18/19 15:36 MB [id number]) OP-PT Subjective Patient Comments Patient Comments Pt states that Dr. Diez said that she does not need surgery on her left knee. PT-OP-D Balance Start: 10/14/19 15:35 Freq: Status: Active Protocol: Document 10/16/19 08:52 MB (Rec: 10/16/19 10:38 MB [id number]) Balance Tests Romberg Romberg EC and EO 30 sec Single Limb Standing Single Limb- Right 9 sec Single Limb- Left 1 sec PT-OP-J Posture/Palpation/Skin Start: 10/14/19 15:35 Freq: Status: Active Protocol: Document 10/16/19 08:52 MB (Rec: 10/16/19 10:38 MB [id number]) Posture Evaluation Comments Posture Comments Standing: pt with severely decreased cervical lordosis and thoracic kyphosis, very flat. She presents with increased anterior tilt pelvis . She presents with mild right scapular elevation and protraction, increased B overpronation feet and increased hayley ankle on the right. PT-OP-K Range of Motion Start: 10/14/19 15:35 Freq: Status: Active Protocol: Document 10/16/19 08:52 MB (Rec: 10/16/19 10:59 MB [id number]) Knee Goniometric Range of Motion Knee Left Knee ROM WFL No Flexion Active (degrees) 109 Extension Active (degrees) 5 Right Knee ROM WFL Yes Flexion Active (degrees) 125 Extension Active (degrees) 0 PT-OP-M Strength Start: 10/14/19 15:35 Freq: Status: Active Protocol: Document 10/16/19 08:52 MB (Rec: 10/16/19 11:01 MB [id number]) Hip Strength Hip Manual Muscle Testing Left Flexion (L2) 4 Good Abduction 4 Good Right Flexion (L2) 4 Good Abduction 4 Good Knee Strength Knee Manual Muscle Testing Left Flexion (S2) 3+ Fair+ Comments Extension NT after injury Right Flexion (S2) 5 Normal Extension (L3) 4 Good Ankle/Foot Strength Ankle and Foot Manual Muscle Testing Left Dorsiflexion (L4) 5 Normal Comments Great toe extension 5/5 Right Dorsiflexion (L4) 5 Normal Comments Great toe extension 5/5 PT-OP-Q Treatments Start: 10/14/19 15:35 Freq: Status: Active Protocol: Document 10/18/19 14:35 MB (Rec: 10/18/19 15:36 MB [id number]) Cardio Equipment Elliptical Duration (Minutes) 10 Resistance 5 Therapeutic Exercises Standing Exercises Side stepping with level 1 band Comments 3 reps side stepping 10 steps right and left Standing hip abduction and extension strengthening level 2 Comments 5 reps B and added to HEP Other Exercises Stair training with and without KT left knee Comments Pt with hyperextension with descending steps without KT, better with tape PT-OP-T Assessment and Plan Start: 10/14/19 15:35 Freq: Status: Active Protocol: Document 10/18/19 14:35 MB (Rec: 10/18/19 15:36 MB [id number]) Physical Therapy Assessment Rehab Potential Rehabilitation Potential Good Evaluation Complexity Number of Personal Factors/Comorbidities 0 Number of Body Systems Impaired 1-2 Clinical Presentation at Evaluation Evolving Impairments Impairments Activity Tolerance,Balance, Gait,Pain,Posture,ROM,Soft Tissue Mobility,Strength Other Impairments Clinical presentation may be evolving d/t mechanical changes in knee with associated pain, popping after stepping event--positive MRI and pt has not yet seen orthopedist Goals 6 Software Test Technician Goal (LTG) Pt will ascend and descend 16 steps with rail and no pain to allow safe home mobility by . LTG Duration 8 weeks 5 Prison Goal (LTG) Pt will perform progressive HEP with I to improve flexibility, strength, balance and gait by 12/16/2019. LTG Duration 8 weeks 4 Prison Goal (LTG) Pt will present with B hip flexion and abduction and B knee flexion and extension to 5/5 to allow normal strength for activities by 12/16/2019. LTG Duration 8 weeks 3 Software Test Technician Goal (LTG) Pt will perform B SLS to 30 sec in socks to allow return to previous yoga level by 12/15. LTG Duration 8 weeks 2 Software Test Technician Goal (LTG) Pt will present with left knee AROM 0-125 deg to improve sit to stands by 12/16/2019. LTG Duration 8 weeks 1 Software Test Technician Goal (LTG) Pt will report an overall 75% improvement in left knee pain to allow her to return to stair ambulation with rail in home by 12/16/2019. LTG Duration 8 weeks Assessment Summary Assessment Pt left knee appears more stable with descending steps once KT donned for support. Con't progressive strengthening and flexibility. Physical Therapy Plan Frequency and Duration Frequency of Treatment 2x/Week Duration of Treatment 8 weeks Plan of Care Start Date 10/16/19 Plan of Care End Date 12/16/19 Therapeutic Interventions Therapeutic Interventions Aquatic Therapy,Balance Training,Canalithic Repositioning,Gait Training, Home Exercise Program,Joint Mobilizations,Manual Therapy, Neuromuscular Re-education, Patient/Caregiver Education, Self-Care/Home Management,Soft Tissue Mobilization,Taping, Therapeutic Activities, Therapeutic Exercises Modalities Cold Pack/Ice Massage,Electric Stimulation,Hot Packs, Ultrasound Other Therapeutic Interventions LLT Next Visit Focus/Plan Next Note Type Treatment Note Next Visit Plan Initiate NuStep and further gentle exercises
--- NOTE | 2019-10-22 15:22 | PT.OTN ---
Current Diagnoses Patellofemoral disorders, unspecified knee (10/22/19) Physical Therapy Treatment Note PT-OP-A Visit Information Start: 10/14/19 15:35 Freq: Status: Active Protocol: Document 10/22/19 14:32 MB (Rec: 10/22/19 15:21 MB [id number]) Out-Patient Physical Therapy Visit Information Visit Information Visit Type Treatment Note Visit Note [facility], 15 initial visits, $40 copay Visit Start Time 14:32 Visit Stop Time 15:15 Total Visit Minutes 43 Visit Number 3 PT-OP-B Current Condition Start: 10/14/19 15:35 Freq: Status: Active Protocol: Document 10/16/19 08:52 MB (Rec: 10/16/19 09:58 MB [id number]) Current Condition History of Current Condition Onset Date 1 month History of Current Condition Pt reports she was walking upstairs in her house and she heard a crack and like a chunk of my left knee fell off . The pain was 10.5/10. The pain was so bad that she thought she might pass out. She had increased pain with bending left knee. She can stand on it but cannot put weight on her left foot when she has her knee bent. When she gets up from sitting for a while, getting up and the first two steps are problematic. She is not using a cane or walker. She feels like she is back to normal and doing normal ADLs. She lives with her . She does a yoga class and cannot currently do some yoga moves. About her steps at home: She has two handrails. She has 16 steps there. She has a game room upstairs. She does not have to go upstairs. Pt reports 3-4/10 pain in left knee and 2/10 pain in right knee currently. She has most pain in left knee when walking up stairs or slope. Last year , she got soreness in both legs near her calves. She stopped her statin at that time. She does not have a medication list on her today. She has a history of 2-3/10 neck pain and bladder surgery and dysfunction. She has a chronic stiff neck. She gets massage and critical care clinical nurse specialist 2x/month. She has nothing wrong as found by log driver. She has no chest pain . She felt her heart was racing. She sleeps on her side with no pillow support between her knees. She sees Dr. Diez tomorrow for orthopedic consult. She follows-up with Dr. Palacios next week. 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 It didn't make too much difference PT-OP-C Subjective Start: 10/14/19 15:35 Freq: Status: Active Protocol: Document 10/22/19 14:32 MB (Rec: 10/22/19 15:21 MB [id number]) OP-PT Subjective Patient Comments Patient Comments Pt reports that she did not notice any difference with the tape. PT-OP-D Balance Start: 10/14/19 15:35 Freq: Status: Active Protocol: Document 10/16/19 08:52 MB (Rec: 10/16/19 10:38 MB [id number]) Balance Tests Romberg Romberg EC and EO 30 sec Single Limb Standing Single Limb- Right 9 sec Single Limb- Left 1 sec PT-OP-J Posture/Palpation/Skin Start: 10/14/19 15:35 Freq: Status: Active Protocol: Document 10/16/19 08:52 MB (Rec: 10/16/19 10:38 MB [id number]) Posture Evaluation Comments Posture Comments Standing: pt with severely decreased cervical lordosis and thoracic kyphosis, very flat. She presents with increased anterior tilt pelvis . She presents with mild right scapular elevation and protraction, increased B overpronation feet and increased hayley ankle on the right. PT-OP-K Range of Motion Start: 10/14/19 15:35 Freq: Status: Active Protocol: Document 10/16/19 08:52 MB (Rec: 10/16/19 10:59 MB [id number]) Knee Goniometric Range of Motion Knee Left Knee ROM WFL No Flexion Active (degrees) 109 Extension Active (degrees) 5 Right Knee ROM WFL Yes Flexion Active (degrees) 125 Extension Active (degrees) 0 PT-OP-M Strength Start: 10/14/19 15:35 Freq: Status: Active Protocol: Document 10/16/19 08:52 MB (Rec: 02/26/20 11:01 MB [id number]) Hip Strength Hip Manual Muscle Testing Left Flexion (L2) 4 Good Abduction 4 Good Right Flexion (L2) 4 Good Abduction 4 Good Knee Strength Knee Manual Muscle Testing Left Flexion (S2) 3+ Fair+ Comments Extension NT after injury Right Flexion (S2) 5 Normal Extension (L3) 4 Good Ankle/Foot Strength Ankle and Foot Manual Muscle Testing Left Dorsiflexion (L4) 5 Normal Comments Great toe extension 5/5 Right Dorsiflexion (L4) 5 Normal Comments Great toe extension 5/5 PT-OP-Q Treatments Start: 10/14/19 15:35 Freq: Status: Active Protocol: Document 10/22/19 14:32 MB (Rec: 10/22/19 15:21 MB [id number]) Cardio Equipment Bicycle (Upright) Duration (Minutes) 10 Resistance 5-9 Seat Position 4 Therapeutic Exercises Supine Exercises SLR with toes outward Comments Count 4 up and 4 down, 5 reps each leg Aureliano stretch Comments Performed today with abdominal drawing in, pelvic tilt 45 sec B legs Manual Therapy Treatment Other Other Manual Treatments STM with rolling pin--quads and vastus lateralis B PT-OP-T Assessment and Plan Start: 10/14/19 15:35 Freq: Status: Active Protocol: Document 10/22/19 14:32 MB (Rec: 10/22/19 15:21 MB [id number]) Physical Therapy Assessment Rehab Potential Rehabilitation Potential Good Evaluation Complexity Number of Personal Factors/Comorbidities 0 Number of Body Systems Impaired 1-2 Clinical Presentation at Evaluation Evolving Impairments Impairments Activity Tolerance,Balance, Gait,Pain,Posture,ROM,Soft Tissue Mobility,Strength Other Impairments Clinical presentation may be evolving d/t mechanical changes in knee with associated pain, popping after stepping event--positive MRI and pt has not yet seen orthopedist Goals 6 [facility] Psych[facility]ry Goal (LTG) Pt will ascend and descend 16 steps with rail and no pain to allow safe home mobility by . LTG Duration 8 weeks 5 [facility] Psychiatry Goal (LTG) Pt will perform progressive HEP with I to improve flexibility, strength, balance and gait by 12/16/2019. LTG Duration 8 weeks 4 [facility] Psychiatry Goal (LTG) Pt will present with B hip flexion and abduction and B knee flexion and extension to 5/5 to allow normal strength for activities by 12/16/2019. LTG Duration 8 weeks 3 [facility] Goal (LTG) Pt will perform B SLS to 30 sec in socks to allow return to previous yoga level by 12/15. LTG Duration 8 weeks 2 [facility] Psychiatry Goal (LTG) Pt will present with left knee AROM 0-125 deg to improve sit to stands by 12/16/2019. LTG Duration 8 weeks 1 [facility] Psychiatry Goal (LTG) Pt will report an overall 75% improvement in left knee pain to allow her to return to stair ambulation with rail in home by 12/16/2019. LTG Duration 8 weeks Assessment Summary Assessment Initiated flexibility exercises and manual work today. Con't progressive strengthening and flexibility. Physical Therapy Plan Frequency and Duration Frequency of Treatment 2x/Week Duration of Treatment 8 weeks Plan of Care Start Date 10/16/19 Plan of Care End Date 12/16/19 Therapeutic Interventions Therapeutic Interventions Aquatic Therapy,Balance Training,Canalithic Repositioning,Gait Training, Home Exercise Program,Joint Mobilizations,Manual Therapy, Neuromuscular Re-education, Patient/Caregiver Education, Self-Care/Home Management,Soft Tissue Mobilization,Taping, Therapeutic Activities, Therapeutic Exercises Modalities Cold Pack/Ice Massage,Electric Stimulation,Hot Packs, Ultrasound Other Therapeutic Interventions LLT Next Visit Focus/Plan Next Note Type Treatment Note Next Visit Plan Review Aureliano tess, add hamstring stretch sequence, balance and core
--- NOTE | 2019-10-24 15:33 | PT.OTN ---
Current Diagnoses Patellofemoral disorders, unspecified knee (10/24/19) Physical Therapy Treatment Note PT-OP-A Visit Information Start: 10/14/19 15:35 Freq: Status: Active Protocol: Document 10/24/19 14:30 MB (Rec: 10/24/19 15:33 MB [id number]) Out-Patient Physical Therapy Visit Information Visit Information Visit Type Treatment Note Visit Note [facility], 15 initial visits, $40 copay Visit Start Time 14:30 Visit Stop Time 15:12 Total Visit Minutes 42 Visit Number 4 PT-OP-B Current Condition Start: 10/14/19 15:35 Freq: Status: Active Protocol: Document 10/16/19 08:52 MB (Rec: 10/16/19 09:58 MB [id number]) Current Condition History of Current Condition Onset Date 1 month History of Current Condition Pt reports she was walking upstairs in her house and she heard a crack and like a chunk of my left knee fell off . The pain was 10.5/10. The pain was so bad that she thought she might pass out. She had increased pain with bending left knee. She can stand on it but cannot put weight on her left foot when she has her knee bent. When she gets up from sitting for a while, getting up and the first two steps are problematic. She is not using a cane or walker. She feels like she is back to normal and doing normal ADLs. She lives with her . She does a yoga class and cannot currently do some yoga moves. About her steps at home: She has two handrails. She has 16 steps there. She has a game room upstairs. She does not have to go upstairs. Pt reports 3-4/10 pain in left knee and 2/10 pain in right knee currently. She has most pain in left knee when walking up stairs or slope. Last year , she got soreness in both legs near her calves. She stopped her statin at that time. She does not have a medication list on her today. She has a history of 2-3/10 neck pain and bladder surgery and dysfunction. She has a chronic stiff neck. She gets massage and career services manager 2x/month. She has nothing wrong as found by campus monitor. She has no chest pain . She felt her heart was racing. She sleeps on her side with no pillow support between her knees. She sees Dr. Diez tomorrow for orthopedic consult. She follows-up with Dr. Palacios next week. 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 It didn't make too much difference PT-OP-C Subjective Start: 10/14/19 15:35 Freq: Status: Active Protocol: Document 10/24/19 14:30 MB (Rec: 10/24/19 15:33 MB [id number]) OP-PT Subjective Patient Comments Patient Comments Pt states that she got on the upright bike for 5 minutes yesterday. She did notice some more achiness and edema in left knee yesterday. PT-OP-D Balance Start: 10/14/19 15:35 Freq: Status: Active Protocol: Document 10/16/19 08:52 MB (Rec: 10/16/19 10:38 MB [id number]) Balance Tests Romberg Romberg EC and EO 30 sec Single Limb Standing Single Limb- Right 9 sec Single Limb- Left 1 sec PT-OP-J Posture/Palpation/Skin Start: 10/14/19 15:35 Freq: Status: Active Protocol: Document 10/16/19 08:52 MB (Rec: 10/16/19 10:38 MB [id number]) Posture Evaluation Comments Posture Comments Standing: pt with severely decreased cervical lordosis and thoracic kyphosis, very flat. She presents with increased anterior tilt pelvis . She presents with mild right scapular elevation and protraction, increased B overpronation feet and increased hayley ankle on the right. PT-OP-K Range of Motion Start: 10/14/19 15:35 Freq: Status: Active Protocol: Document 10/16/19 08:52 MB (Rec: 10/16/19 10:59 MB [id number]) Knee Goniometric Range of Motion Knee Left Knee ROM WFL No Flexion Active (degrees) 109 Extension Active (degrees) 5 Right Knee ROM WFL Yes Flexion Active (degrees) 125 Extension Active (degrees) 0 PT-OP-M Strength Start: 10/14/19 15:35 Freq: Status: Active Protocol: Document 10/16/19 08:52 MB (Rec: 10/16/19 11:01 MB [id number]) Hip Strength Hip Manual Muscle Testing Left Flexion (L2) 4 Good Abduction 4 Good Right Flexion (L2) 4 Good Abduction 4 Good Knee Strength Knee Manual Muscle Testing Left Flexion (S2) 3+ Fair+ Comments Extension NT after injury Right Flexion (S2) 5 Normal Extension (L3) 4 Good Ankle/Foot Strength Ankle and Foot Manual Muscle Testing Left Dorsiflexion (L4) 5 Normal Comments Great toe extension 5/5 Right Dorsiflexion (L4) 5 Normal Comments Great toe extension 5/5 PT-OP-Q Treatments Start: 10/14/19 15:35 Freq: Status: Active Protocol: Document 10/24/19 14:30 MB (Rec: 10/24/19 15:33 MB [id number]) Therapeutic Exercises Supine Exercises Hamstring, calf and AP stretch with martial art belt Comments 30 sec all directions both legs, added to HEP SLR with toes outward Comments 5 reps, slow count up and down , re-ed to perform at home Aureliano stretch Comments 30 sec hold B Sitting Exercises Rolling pin self-massage sitting Comments Added to HEP Standing Exercises Calf stretches and heel and toe raises Comments Performed B, 30 sec hold for stretch PT-OP-T Assessment and Plan Start: 10/14/19 15:35 Freq: Status: Active Protocol: Document 10/24/19 14:30 MB (Rec: 10/24/19 15:33 MB [id number]) Physical Therapy Assessment Rehab Potential Rehabilitation Potential Good Evaluation Complexity Number of Personal Factors/Comorbidities 0 Number of Body Systems Impaired 1-2 Clinical Presentation at Evaluation Evolving Impairments Impairments Activity Tolerance,Balance, Gait,Pain,Posture,ROM,Soft Tissue Mobility,Strength Other Impairments Clinical presentation may be evolving d/t mechanical changes in knee with associated pain, popping after stepping event--positive MRI and pt has not yet seen orthopedist Goals 6 [facility]dc Goal (LTG) Pt will ascend and descend 16 steps with rail and no pain to allow safe home mobility by . LTG Duration 8 weeks 5 Fdc Goal (LTG) Pt will perform progressive HEP with I to improve flexibility, strength, balance and gait by 12/16/2019. LTG Duration 8 weeks 4 Fdc Goal (LTG) Pt will present with B hip flexion and abduction and B knee flexion and extension to 5/5 to allow normal strength for activities by 12/16/2019. LTG Duration 8 weeks 3 Fdc Goal (LTG) Pt will perform B SLS to 30 sec in socks to allow return to previous yoga level by 12/15. LTG Duration 8 weeks 2 Fdc Goal (LTG) Pt will present with left knee AROM 0-125 deg to improve sit to stands by 12/16/2019. LTG Duration 8 weeks 1 Fdc Goal (LTG) Pt will report an overall 75% improvement in left knee pain to allow her to return to stair ambulation with rail in home by 12/16/2019. LTG Duration 8 weeks Assessment Summary Assessment Progressed flexibility exercises today. Con't strengthening and balance. Physical Therapy Plan Frequency and Duration Frequency of Treatment 2x/Week Duration of Treatment 8 weeks Plan of Care Start Date 10/16/19 Plan of Care End Date 12/16/19 Therapeutic Interventions Therapeutic Interventions Aquatic Therapy,Balance Training,Canalithic Repositioning,Gait Training, Home Exercise Program,Joint Mobilizations,Manual Therapy, Neuromuscular Re-education, Patient/Caregiver Education, Self-Care/Home Management,Soft Tissue Mobilization,Taping, Therapeutic Activities, Therapeutic Exercises Modalities Cold Pack/Ice Massage,Electric Stimulation,Hot Packs, Ultrasound Other Therapeutic Interventions LLT Next Visit Focus/Plan Next Note Type Treatment Note Next Visit Plan Progress balance and core and strengthening--mini squat, crab walk, consider heel raises with band resistance for multifidi
--- NOTE | 2019-10-31 15:43 | PT.OTN ---
Current Diagnoses Patellofemoral disorders, unspecified knee (10/31/19) Physical Therapy Treatment Note PT-OP-A Visit Information Start: 10/14/19 15:35 Freq: Status: Active Protocol: Document 10/31/19 14:40 MB (Rec: 10/31/19 15:42 MB [id number]) Out-Patient Physical Therapy Visit Information Visit Information Visit Type Treatment Note Visit Note [facility], 15 initial visits, $40 copay Visit Start Time 14:40 Visit Stop Time 15:35 Total Visit Minutes 55 Visit Number 5 PT-OP-B Current Condition Start: 10/14/19 15:35 Freq: Status: Active Protocol: Document 10/16/19 08:52 MB (Rec: 10/16/19 09:58 MB [id number]) Current Condition History of Current Condition Onset Date 1 month History of Current Condition Pt reports she was walking upstairs in her house and she heard a crack and like a chunk of my left knee fell off . The pain was 10.5/10. The pain was so bad that she thought she might pass out. She had increased pain with bending left knee. She can stand on it but cannot put weight on her left foot when she has her knee bent. When she gets up from sitting for a while, getting up and the first two steps are problematic. She is not using a cane or walker. She feels like she is back to normal and doing normal ADLs. She lives with her . She does a yoga class and cannot currently do some yoga moves. About her steps at home: She has two handrails. She has 16 steps there. She has a game room upstairs. She does not have to go upstairs. Pt reports 3-4/10 pain in left knee and 2/10 pain in right knee currently. She has most pain in left knee when walking up stairs or slope. Last year , she got soreness in both legs near her calves. She stopped her statin at that time. She does not have a medication list on her today. She has a history of 2-3/10 neck pain and bladder surgery and dysfunction. She has a chronic stiff neck. She gets massage and patient care provider 2x/month. She has nothing wrong as found by grocery buyer. She has no chest pain . She felt her heart was racing. She sleeps on her side with no pillow support between her knees. She sees Dr. Diez tomorrow for orthopedic consult. She follows-up with Dr. Palacios next week. 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 It didn't make too much difference PT-OP-C Subjective Start: 10/14/19 15:35 Freq: Status: Active Protocol: Document 10/31/19 14:40 MB (Rec: 10/31/19 15:43 MB [id number]) OP-PT Subjective Patient Comments Patient Comments Pt reports she got compression hose. She walked an hour the other day and did well. PT-OP-D Balance Start: 10/14/19 15:35 Freq: Status: Active Protocol: Document 10/16/19 08:52 MB (Rec: 10/16/19 10:38 MB [id number]) Balance Tests Romberg Romberg EC and EO 30 sec Single Limb Standing Single Limb- Right 9 sec Single Limb- Left 1 sec PT-OP-J Posture/Palpation/Skin Start: 10/14/19 15:35 Freq: Status: Active Protocol: Document 10/16/19 08:52 MB (Rec: 10/16/19 10:38 MB [id number]) Posture Evaluation Comments Posture Comments Standing: pt with severely decreased cervical lordosis and thoracic kyphosis, very flat. She presents with increased anterior tilt pelvis . She presents with mild right scapular elevation and protraction, increased B overpronation feet and increased hayley ankle on the right. PT-OP-K Range of Motion Start: 10/14/19 15:35 Freq: Status: Active Protocol: Document 10/16/19 08:52 MB (Rec: 10/16/19 10:59 MB [id number]) Knee Goniometric Range of Motion Knee Left Knee ROM WFL No Flexion Active (degrees) 109 Extension Active (degrees) 5 Right Knee ROM WFL Yes Flexion Active (degrees) 125 Extension Active (degrees) 0 PT-OP-M Strength Start: 10/14/19 15:35 Freq: Status: Active Protocol: Document 10/16/19 08:52 MB (Rec: 10/16/19 11:01 MB [id number]) Hip Strength Hip Manual Muscle Testing Left Flexion (L2) 4 Good Abduction 4 Good Right Flexion (L2) 4 Good Abduction 4 Good Knee Strength Knee Manual Muscle Testing Left Flexion (S2) 3+ Fair+ Comments Extension NT after injury Right Flexion (S2) 5 Normal Extension (L3) 4 Good Ankle/Foot Strength Ankle and Foot Manual Muscle Testing Left Dorsiflexion (L4) 5 Normal Comments Great toe extension 5/5 Right Dorsiflexion (L4) 5 Normal Comments Great toe extension 5/5 PT-OP-Q Treatments Start: 10/14/19 15:35 Freq: Status: Active Protocol: Document 10/31/19 14:40 MB (Rec: 10/31/19 15:42 MB [id number]) Cardio Equipment Bicycle (Upright) Duration (Minutes) 10 Resistance 11 Therapeutic Exercises Sitting Exercises Ankle DF and eversion Comments Level 2 band, heels down, 10 repsx2 Standing Exercises Heel raises with band to side Comments Multifidi recruitment, level 1 band, heel raises x10 band right and left Mini squats against wall Comments Ball between knees, 10 reps, count slowly up and down Manual Therapy Treatment Other Other Manual Treatments STM with rolling pin--quads and vastus lateralis B PT-OP-T Assessment and Plan Start: 10/14/19 15:35 Freq: Status: Active Protocol: Document 10/31/19 14:40 MB (Rec: 10/31/19 15:42 MB [id number]) Physical Therapy Assessment Rehab Potential Rehabilitation Potential Good Evaluation Complexity Number of Personal Factors/Comorbidities 0 Number of Body Systems Impaired 1-2 Clinical Presentation at Evaluation Evolving Impairments Impairments Activity Tolerance,Balance, Gait,Pain,Posture,ROM,Soft Tissue Mobility,Strength Other Impairments Clinical presentation may be evolving d/t mechanical changes in knee with associated pain, popping after stepping event--positive MRI and pt has not yet seen orthopedist Goals 6 Snf Goal (LTG) Pt will ascend and descend 16 steps with rail and no pain to allow safe home mobility by . LTG Duration 8 weeks 5 Snf Goal (LTG) Pt will perform progressive HEP with I to improve flexibility, strength, balance and gait by 12/16/2019. LTG Duration 8 weeks 4 Snf Goal (LTG) Pt will present with B hip flexion and abduction and B knee flexion and extension to 5/5 to allow normal strength for activities by 12/16/2019. LTG Duration 8 weeks 3 Snf Goal (LTG) Pt will perform B SLS to 30 sec in socks to allow return to previous yoga level by 12/15. LTG Duration 8 weeks 2 Snf Goal (LTG) Pt will present with left knee AROM 0-125 deg to improve sit to stands by 12/16/2019. LTG Duration 8 weeks 1 Snf Goal (LTG) Pt will report an overall 75% improvement in left knee pain to allow her to return to stair ambulation with rail in home by 12/16/2019. LTG Duration 8 weeks Assessment Summary Assessment Progressed strengthening and balance today. Con't progression. Pt con't with fascial tension quads, greatest vastus lateralis Physical Therapy Plan Frequency and Duration Frequency of Treatment 2x/Week Duration of Treatment 8 weeks Plan of Care Start Date 10/16/19 Plan of Care End Date 12/16/19 Therapeutic Interventions Therapeutic Interventions Aquatic Therapy,Balance Training,Canalithic Repositioning,Gait Training, Home Exercise Program,Joint Mobilizations,Manual Therapy, Neuromuscular Re-education, Patient/Caregiver Education, Self-Care/Home Management,Soft Tissue Mobilization,Taping, Therapeutic Activities, Therapeutic Exercises Modalities Cold Pack/Ice Massage,Electric Stimulation,Hot Packs, Ultrasound Other Therapeutic Interventions LLT Next Visit Focus/Plan Next Note Type Treatment Note Next Visit Plan Progress balance and core and strengthening, vastus lateralis strengthening
--- NOTE | 2019-11-07 09:39 | PT-OP ANOTE ---
PT speaks with pt who states that she was at choir last week and several people got sick and are getting tested for COVID-19. She got sick like the flu last Monday, 6 days ago, and is now 80% better. No one has tested positive for COVID yet. Will cancel PT through 11/21/2019 and con't 11/25/2019 currently.
--- NOTE | 2019-11-12 08:27 | PT-OP ANOTE ---
Pt returns PT's call. She was exposed to COVID-19 at [place] on 10/29/2019. She had PT with this therapist 10/31/2019. She was asymptomatic at that time. She was sick for a few days. She was found to have COVID-19 later, left message at this clinic on 11/10/2019. No PT appointments at this time.
--- NOTE | 2019-11-30 12:47 | PT-OP ANOTE ---
PT calls pt and leaves message on home phone number with email address to contact PT as needed. Pt does answer her cell phone. Pt is feeling well. She is 90% better with her knee pain. She is walking outside her house. She will schedule some more treatments for December when clinic opens back up.
--- NOTE | 2019-12-14 16:23 | PT-OP ANOTE ---
PT calls pt and pt states that she is ready to d/c. Will d/c PT.
--- NOTE | 2019-12-14 16:26 | PT.OPDS ---
Current Diagnoses Patellofemoral disorders, unspecified knee (10/31/19) Visit Care Team Role Provider Type Cynthia Palacios MD Attending Provider Physician Primary Care Provider Referring Provider Specialty: Family Practice Address: [address] [place] [address], [facility] [place], [address] Email: [email or web address] Visit Number Visit Number 5 Discharge Summary PT-OP-B Current Condition Start: 10/14/19 15:35 Freq: Status: Active Protocol: Document 10/16/19 08:52 MB (Rec: 10/16/19 09:58 MB [id number]) Current Condition History of Current Condition Onset Date 1 month History of Current Condition Pt reports she was walking upstairs in her house and she heard a crack and like a chunk of my left knee fell off . The pain was 10.5/10. The pain was so bad that she thought she might pass out. She had increased pain with bending left knee. She can stand on it but cannot put weight on her left foot when she has her knee bent. When she gets up from sitting for a while, getting up and the first two steps are problematic. She is not using a cane or walker. She feels like she is back to normal and doing normal ADLs. She lives with her . She does a yoga class and cannot currently do some yoga moves. About her steps at home: She has two handrails. She has 16 steps there. She has a game room upstairs. She does not have to go upstairs. Pt reports 3-4/10 pain in left knee and 2/10 pain in right knee currently. She has most pain in left knee when walking up stairs or slope. Last year , she got soreness in both legs near her calves. She stopped her statin at that time. She does not have a medication list on her today. She has a history of 2-3/10 neck pain and bladder surgery and dysfunction. She has a chronic stiff neck. She gets massage and critical care specialist 2x/month. She has nothing wrong as found by environmental monitoring technician. She has no chest pain . She felt her heart was racing. She sleeps on her side with no pillow support between her knees. She sees Dr. Diez tomorrow for orthopedic consult. She follows-up with Dr. Palacios next week. 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 It didn't make too much difference PT-OP-C Subjective Start: 10/14/19 15:35 Freq: Status: Active Protocol: Document 10/31/19 14:40 MB (Rec: 10/31/19 15:43 MB [id number]) OP-PT Subjective Patient Comments Patient Comments Pt reports she got compression hose. She walked an hour the other day and did well. PT-OP-D Balance Start: 10/14/19 15:35 Freq: Status: Active Protocol: Document 10/16/19 08:52 MB (Rec: 10/16/19 10:38 MB [id number]) Balance Tests Romberg Romberg EC and EO 30 sec Single Limb Standing Single Limb- Right 9 sec Single Limb- Left 1 sec PT-OP-J Posture/Palpation/Skin Start: 10/14/19 15:35 Freq: Status: Active Protocol: Document 10/16/19 08:52 MB (Rec: 10/16/19 10:38 MB [id number]) Posture Evaluation Comments Posture Comments Standing: pt with severely decreased cervical lordosis and thoracic kyphosis, very flat. She presents with increased anterior tilt pelvis . She presents with mild right scapular elevation and protraction, increased B overpronation feet and increased hayley ankle on the right. PT-OP-K Range of Motion Start: 10/14/19 15:35 Freq: Status: Active Protocol: Document 10/16/19 08:52 MB (Rec: 10/16/19 10:59 MB [id number]) Knee Goniometric Range of Motion Knee Left Knee ROM WFL No Flexion Active (degrees) 109 Extension Active (degrees) 5 Right Knee ROM WFL Yes Flexion Active (degrees) 125 Extension Active (degrees) 0 PT-OP-M Strength Start: 10/14/19 15:35 Freq: Status: Active Protocol: Document 10/16/19 08:52 MB (Rec: 10/16/19 11:01 MB [id number]) Hip Strength Hip Manual Muscle Testing Left Flexion (L2) 4 Good Abduction 4 Good Right Flexion (L2) 4 Good Abduction 4 Good Knee Strength Knee Manual Muscle Testing Left Flexion (S2) 3+ Fair+ Comments Extension NT after injury Right Flexion (S2) 5 Normal Extension (L3) 4 Good Ankle/Foot Strength Ankle and Foot Manual Muscle Testing Left Dorsiflexion (L4) 5 Normal Comments Great toe extension 5/5 Right Dorsiflexion (L4) 5 Normal Comments Great toe extension 5/5 PT-OP-T Assessment and Plan Start: 10/14/19 15:35 Freq: Status: Active Protocol: Document 12/14/19 16:26 MB (Rec: 12/14/19 16:26 MB [id number]) Physical Therapy Plan Discharge Physical Therapy Discharge Comments PT calls pt and she is doing well and ready to d/c. D/c PT.
== END 2019-10-31 15:30 ==
LOC: PHYS 14:30
PROVIDERS: PCP Student in an Organized Health Care Education/Training Program; Referring Provider Student in an Organized Health Care Education/Training Program; Visit Provider Student in an Organized Health Care Education/Training Program
DX: M22.2X9 Patellofemoral disorders, unspecified knee (principal)
CPT/HCPCS: 97110; 97140; 97161; 97535

== ENCOUNTER → 2020-04-06 10:07 | Outpatient (CLI) | payer OTHER, SELFPAY | PROVIDERS: PCP Student in an Organized Health Care Education/Training Program; Referring Provider Urology; Visit Provider Urology | DX: R39.15 Urgency of urination (principal) | CPT/HCPCS: 87077; 87086; 87186 ==

== ENCOUNTER → 2020-07-24 11:22 | Outpatient (ROUT) | payer OTHER, SELFPAY ==
[2020-07-24 11:42] LABS: Influenza A - CEPHEID Flu A NEGATIVE (NEGATIVE); Influenza B - CEPHEID Flu B NEGATIVE (NEGATIVE)
== END ==
PROVIDERS: PCP Student in an Organized Health Care Education/Training Program; Visit Provider Student in an Organized Health Care Education/Training Program
DX: R50.9 Fever, unspecified (principal)
CPT/HCPCS: 87502

== ENCOUNTER → 2020-08-18 16:10 | Outpatient (CLI) | payer OTHER, SELFPAY ==
--- NOTE | 2020-08-18 | DI.MG.S_ITS ---
BILATERAL DIGITAL SCREENING MAMMOGRAM 3D/2D WITH CAD: 08/18/2020 CLINICAL: Routine screening. Family history of breast cancer. Comparison is made to exams dated: 07/22/2019 mammogram, 07/24/2018 mammogram, 07/06/2018 mammogram, and 06/29/2017 mammogram - [facility]. The tissue of both breasts is heterogeneously dense. This may lower the sensitivity of mammography. Current study was also evaluated with a Computer Aided Detection (CAD) system. No significant masses, calcifications, or other findings are seen in either breast. There has been no significant interval change. IMPRESSION: NEGATIVE There is no mammographic evidence of malignancy. A 1 year screening mammogram is recommended. This exam was interpreted at Station ID: [id number]. NOTE: For mammograms, a report in lay terms will be sent to the patient. Approximately 15% of breast malignancies will not be visualized mammographically. In the management of a palpable breast mass, a negative mammogram must not discourage biopsy of a clinically suspicious lesion. Electronically Signed By: Lauren magaña/carlos alberto:08/18/2020 16:36:36 letter sent: Normal Exam ACR BI-RADS Category 1: Negative 3341F
== END ==
PROVIDERS: PCP Student in an Organized Health Care Education/Training Program; Referring Provider Student in an Organized Health Care Education/Training Program; Visit Provider Student in an Organized Health Care Education/Training Program
DX: Z12.31 Encounter for screening mammogram for malignant neoplasm of breast (principal); Z80.3 Family history of malignant neoplasm of breast
CPT/HCPCS: 77063; 77067

== ENCOUNTER → 2020-11-24 16:59 | Outpatient (CLI) | payer OTHER, SELFPAY ==
[2020-11-24 18:18] LABS: Estradiol, Total 67.7 pg/mL
== END ==
PROVIDERS: PCP Student in an Organized Health Care Education/Training Program; Referring Provider Obstetrics & Gynecology; Visit Provider Obstetrics & Gynecology
DX: N95.1 Menopausal and female climacteric states (principal)
CPT/HCPCS: 36415; 82670

== ENCOUNTER → 2021-02-18 14:43 | Outpatient (CLI) | payer OTHER, SELFPAY | PROVIDERS: PCP Student in an Organized Health Care Education/Training Program; Referring Provider Urology; Visit Provider Urology | DX: N31.9 Neuromuscular dysfunction of bladder, unspecified (principal) | CPT/HCPCS: 87077; 87086; 87186 ==

== ENCOUNTER → 2021-05-20 15:08 | Outpatient (CLI) | payer OTHER, SELFPAY ==
[2021-05-20 16:39] LABS: Progesterone, Total 4.93 ng/mL
[2021-05-20 16:55] LABS: Estradiol, Total 85.8 pg/mL
== END ==
PROVIDERS: PCP Student in an Organized Health Care Education/Training Program; Referring Provider Obstetrics & Gynecology; Visit Provider Obstetrics & Gynecology
DX: N95.1 Menopausal and female climacteric states (principal)
CPT/HCPCS: 36415; 82670; 84144

== ENCOUNTER → 2021-10-28 10:24 | Outpatient (CLI) | payer OTHER, SELFPAY ==
--- NOTE | 2021-10-28 | DI.MG.S_ITS ---
BILATERAL DIGITAL SCREENING MAMMOGRAM 3D/2D WITH CAD: 10/28/2021 CLINICAL: Routine screening. Family history of breast cancer. Comparison is made to exams dated: 08/18/2020 mammogram, 07/22/2019 mammogram, 07/06/2018 mammogram, 06/29/2017 mammogram, and 06/27/2016 mammogram - [facility]. The tissue of both breasts is heterogeneously dense. This may lower the sensitivity of mammography. Current study was also evaluated with a Computer Aided Detection (CAD) system. No significant masses, calcifications, or other findings are seen in either breast. There has been no significant interval change. IMPRESSION: NEGATIVE There is no mammographic evidence of malignancy. A 1 year screening mammogram is recommended. This exam was interpreted at Station ID: [id number]. NOTE: For mammograms, a report in lay terms will be sent to the patient. Approximately 15% of breast malignancies will not be visualized mammographically. In the management of a palpable breast mass, a negative mammogram must not discourage biopsy of a clinically suspicious lesion. Electronically Signed By: Yash saenz/carlos alberto:10/28/2021 11:00:21 letter sent: Normal Exam ACR BI-RADS Category 1: Negative 3341F
== END ==
PROVIDERS: PCP Student in an Organized Health Care Education/Training Program; Referring Provider Student in an Organized Health Care Education/Training Program; Visit Provider Student in an Organized Health Care Education/Training Program
DX: Z12.31 Encounter for screening mammogram for malignant neoplasm of breast (principal); Z80.3 Family history of malignant neoplasm of breast
CPT/HCPCS: 77063; 77067

== ENCOUNTER → 2021-11-04 10:08 | Outpatient (CLI) | payer OTHER, SELFPAY | PROVIDERS: PCP Student in an Organized Health Care Education/Training Program; Referring Provider Student in an Organized Health Care Education/Training Program; Visit Provider Student in an Organized Health Care Education/Training Program | DX: Z78.0 Asymptomatic menopausal state (principal) | CPT/HCPCS: 77080 ==

== ENCOUNTER → 2022-07-11 12:59 | Outpatient (CLI) | payer OTHER, SELFPAY ==
--- NOTE | 2022-07-11 13:00 | DI.CT.S_ITS ---
PROCEDURE: CT ABDOMEN PELVIS W CON INDICATIONS: Umbilical hernia without obstruction or gangrene TECHNIQUE: After the administration of oral and intravenous contrast, axial sections were acquired from the lung bases to the pubic symphysis. Coronal and sagittal reformats were performed. For radiation dose reduction, the following was used: automated exposure control, adjustment of mA and/or kV according to patient size. COMPARISON:None. FINDINGS: Image quality: Excellent. Lung bases: Unremarkable. Heart: No significant findings. ABDOMEN: Liver: Normal in size and overall enhancement. Multiple subcentimeter cystic lesions are visualized throughout suggesting small cysts or biliary hamartomas. Gallbladder: Unremarkable. Biliary ducts: Unremarkable. Pancreas: Unremarkable. Spleen: Unremarkable. Adrenal Glands: Unremarkable. Kidneys and Ureters: Unremarkable. Stomach and Bowel: Stomach, small bowel loops, and colon are unremarkable. There are scattered sigmoid diverticula. No evidence for diverticulitis. The appendix is thin walled and gas filled. Anastomotic suture is noted within the bowel. Peritoneum: No abnormal intraperitoneal fluid. No free air. Ventral Wall: There is a small fat containing paraumbilical hernia. No bowel herniation visualized. Abdominal Nodes: No retroperitoneal or mesenteric adenopathy by size criteria. Vessels: Aorta and inferior vena cava are normal in size. There are scattered atheromatous calcifications throughout the aorta and iliac arteries bilaterally. PELVIS: Pelvic Organs: The uterus is diminutive. The endometrial thickness measures up to 1.0 cm in diameter in the sagittal plane (series 5/image 39). Bladder: The bladder is thin walled. A dense calcification at the base of the bladder raises the suspicion for a calcified urethral diverticulum (series 2/image 73). Pelvic Nodes: No enlarged lymph nodes. Miscellaneous: No inguinal hernias are seen. Bones: Unremarkable. IMPRESSION: 1. Small fat containing paraumbilical hernia. No bowel herniation visualized. 2. No acute intra-abdominal findings. Normal appendix. 3. Diverticulosis. No acute diverticulitis. 4. Questionable endometrial thickness of 1.0 cm in a diminutive uterus. This finding can be associated with endometrial hypertrophy and neoplasm in a postmenopausal female. If further characterization is warranted, consider nonemergent pelvic ultrasound or gynecologic protocol MRI. 5. Findings suspicious for calcified urethral diverticulum. Dictated by: Camila Carlos M.D. on 07/11/2022 at 16:56 Approved by: Camila Carlos M.D. on 07/11/2022 at 17:01
== END ==
PROVIDERS: PCP Internal Medicine; Referring Provider Internal Medicine; Visit Provider Internal Medicine
DX: K42.9 Umbilical hernia without obstruction or gangrene (principal); K57.30 Diverticulosis of large intestine without perforation or abscess without bleeding
CPT/HCPCS: 74177; Q9967

== ENCOUNTER 2022-07-28 02:46 | Emergency (ER) | payer OTHER, SELFPAY ==
[2022-07-28 02:54] VITALS: BP 191/86; PULSE 77; RESP 20; TEMP 36.7; O2SAT 96; BMI 26.9
[2022-07-28 03:45] LABS: Add Manual Diff / Slide Review NO; Basophils Absolute Auto 100 /uL (0-100); Basophils Percent Auto 0.6 % (0-2); Eosinophils Absolute Auto 200 /uL (0-450); Eosinophils Percent Auto 1.7 % (2-4); Hematocrit 43.3 % (36-46); Hemoglobin 14.8 g/dL (12.0-16.0); Lymphocytes Absolute Auto 1900 /uL (1100-4500); Lymphocytes Percent Auto 17.5 % (25-40); Mean Corpuscular HGB Conc 34.1 % (30-36); Mean Corpuscular Hemoglobin 32.7 PG (26-34); Monocytes Absolute Auto 900 /uL (0-900); Monocytes Percent Auto 8.3 % (3-14); Neutrophils Absolute Auto 7800 /uL (1500-7000); Neutrophils Percent Auto 71.9 % (50-75); Platelet Count 279 X10^3/uL (150-400); Red Blood Cell Count 4.51 X10^6/uL (4.0-5.2); Red Cell Distribution Width 13.3 % (11.6-14.8); White Blood Cell Count 10.8 X10^3/uL (4.5-11.0)
[2022-07-28 03:50] LABS: Alanine Aminotransferase 21 IU/L (<35); Albumin 4.4 g/dL (3.5-5.0); Albumin Globulin Ratio 1.5 (1.0-2.8); Alkaline Phosphatase 51 U/L (38-126); Aspartate Aminotransferase 28 IU/L (14-36); BUN Creatinine Ratio 25.7 (6-22); Blood Urea Nitrogen 18 mg/dL (7-17); Calcium 9.5 mg/dL (8.4-10.2); Carbon Dioxide 24 mmol/L (22-32); Chloride 102 mmol/L (98-107); Estimated Glomerular Filt Rate > 60 mL/min (>60); Glucose 120 mg/dL (80-110); Sodium 135 mmol/L (137-145); Total Protein 7.4 g/dL (6.3-8.2)
[2022-07-28 03:51] LABS: HEMOLYSIS 78 (0-50)
--- NOTE | 2022-07-28 04:25 | ED_ITS ---
HPI - Nausea/Vomiting/Diarrhea General Chief complaint: Nausea/Vomiting/Diarrhea Stated complaint: POOPING BLOOD 5 PLUS HOURS Time Seen by Provider: 07/28/22 04:04 Source: patient Mode of arrival: Ambulatory History of Present Illness HPI Narrative: 88 year old woman with a history of hypothyroidism, hormone replacement and multiple bladder surgeries and now needs to self cath to void who presents with increasing episodes of bloody stool. She was feeling well in her usual state of health up through dinner last night after dinner she had bit of abdominal cramping had a regular bowel movement and in fairly short succession increasing ly loose stools to the point where it was watery diarrhea and then began having blood clots associated with the watery diarrhea. She is not passing agustín blood without any liquid stool at this point. She complains only of minimal abdominal cramping, no fevers flank pain, chest pain, dizziness, near-syncope, palpitations, shortness of breath but she does note low-grade nausea without any overt vomiting. She did have a colonoscopy approximately 5 years ago that was reportedly unremarkable. She is never had GI bleeding previously Related Data Home Medications Medication Instructions Recorded Confirmed MULTIVITAMIN 1 cap PO QDAY ##0 01/26/13 07/25/22 VITAMIN B COMPLEX (Vitamin B 1 tab PO QDAY ##0 01/26/13 07/25/22 Complex) [VITAMIN C] 500 mg PO Q DAY ##0 01/26/13 07/25/22 [VITAMIN D] 2,000 mg PO Q DAY ##0 01/26/13 07/25/22 [VITAMIN E] Q DAY ##0 01/26/13 07/25/22 OMEGA-3 FATTY ACIDS (FISH OIL) 1,000 mg PO ##0 07/12/16 07/25/22 cyclosporine 0.05 % eye drops in a 1 drp OPHTH Q12H ##0 07/12/16 07/25/22 dropperette (Restasis) [CO-Q 10] 300 mg PO QDAY ##0 07/15/16 07/25/22 [CRANBERRY EXTRACT] 300 mg PO BID ##0 07/15/16 07/25/22 cyanocobalamin (vitamin B-12) 1,000 mcg PO QDAY ##0 07/15/16 07/25/22 1,000 mcg tablet,extended release levothyroxine 88 mcg tablet 75 mcg PO QAM #0 tabs 04/17/18 07/25/22 (Synthroid) Previous Rx's Medication Instructions Recorded estradiol 0.01% (0.1 mg/gram) See Rx Instructions .Route 08/04/21 vaginal cream .COMPLEX #42.5 grams progesterone micronized 100 mg See Rx Instructions .Route 04/26/22 capsule .COMPLEX #90 caps estradiol 0.5 mg tablet See Rx Instructions .Route 05/16/22 .COMPLEX #90 tabs Allergies Allergy/AdvReac Type Severity Reaction Status Date / Time wheat Allergy Mild Verified 07/25/22 09:21 doxycycline AdvReac Intermediate Vomiting,Di Verified 07/25/22 09:21 arrhea ciprofloxacin AdvReac Mild VOMITING Verified 07/25/22 09:21 fosfomycin [From Monurol] AdvReac Mild Diarrhea Verified 07/25/22 09:21 gluten [GLUTEN] AdvReac Mild DIARRHEA, Verified 07/25/22 09:21 BLOATING hydrocodone AdvReac Mild VOMITING Verified 07/25/22 09:21 Review of Systems Review of Systems Narrative: Remainder of complete review of systems is otherwise unremarkable except for that included in the HPI. Patient History Medical History Bladder dysfunction Thyroid disorder Surgical History History of bladder surgery (1994) History of bladder suspension procedure (1989) History of bladder suspension procedure (~1984) History of bladder suspension procedure (1979) History of third molar tooth extraction Status post tubal ligation (~1970) Family History Father Heart disease Grandfather Heart disease Grandmother Cancer Mother Cancer Grandfather Lung cancer Grandmother No problems noted. Family/Other Diabetes mellitus Social History marital status: Smoking Status: Never smoker Smoking Status: Never smoker alcohol intake frequency: a few times a month Substance Use Type: does not use Exam Initial Vital Signs Initial Vital Signs: Vital Signs Temperature 98.0 F 07/28/22 02:54 Pulse Rate 77 12/08/22 02:54 Respiratory Rate 20 07/28/22 02:54 Blood Pressure 191/86 H 07/28/22 02:54 Pulse Oximetry 96 07/28/22 02:54 Oxygen Delivery Method 07/28/22 02:54 General: Somewhat pale but in no acute distress. Able to give a complete and coherent history. Well-nourished well-developed HEENT: Moist mucous membranes, normal sclera with reactive pupils, Neck: supple Respiratory: Lungs are clear to auscultation, no wheezing no rales no rhonchi. Full and symmetrical air movement Cardiac: Regular rate and rhythm no murmurs no bruits Abdomen: Soft, mild diffuse tenderness without rebound or guarding, hyperactive bowel tones, no flank pain. Skin: Warm and dry, no rashes Neurologic: Grossly neurologically intact with no obvious asymmetries or abnormalities Extremities: No trauma, well perfused Psych: Cooperative, appropriate insight and affect Course Orders Ordered: ED Orders 07/28/22 03:29 CMP [Comprehensive Metabolic Panel] Stat Complete Blood Count AUTO DIFF Stat 07/28/22 04:48 COVID19 -Nasal RAPID/Pre-Proc Stat 07/28/22 07:00 Hemoglobin and Hematocrit Stat Type and Screen Stat Discontinued Medications Sodium Chloride (Normal Saline 0.9%) 1,000 mls @ 1,000 mls/hr IV BOLUS ONE Stop: 07/28/22 05:35 Last Admin: 07/28/22 04:47 Dose: 1,000 mls/hr Documented By: ASHVIN Ondansetron HCl (Ondansetron 4 Mg/2 Ml Inj) 4 mg IV NOW ONE Stop: 07/28/22 04:37 Vital Signs Vital signs: Vital Signs - 8 hr 07/28/22 02:54 Temperature 98.0 F Pulse Rate 77 Respiratory Rate 20 Blood Pressure 191/86 H Pulse Oximetry 96 Oxygen Delivery Method Room Air MDM - Nausea/Vomiting/Diarrhea Lab Data Result diagrams: 07/28/22 03:29 07/28/22 03:29 Labs: Lab Results 07/28/22 07/28/22 Range/Units 03:29 03:29 WBC 10.8 (4.5-11.0) X10^3/uL RBC 4.51 (4.0-5.2) X10^6/uL Hgb 14.8 (12.0-16.0) g/dL Hct 43.3 (36-46) % MCV 96.0 (80-100) fL MCH 32.7 (26-34) PG MCHC 34.1 (30-36) % RDW 13.3 (11.6-14.8) % Plt Count 279 (150-400) X10^3/uL Neut % (Auto) 71.9 (50-75) % Lymph % (Auto) 17.5 L (25-40) % [place] % (Auto) 8.3 (3-14) % Eos % (Auto) 1.7 L (2-4) % Baso % (Auto) 0.6 (0-2) % Neut # (Auto) 7800 H (9204-1841) /uL Lymph # (Auto) 1900 (7413-1339) /uL [place] # (Auto) 900 (0-900) /uL Eos # (Auto) 200 (0-450) /uL Baso # (Auto) 100 (0-100) /uL Sodium 135 L (137-145) mmol/L Potassium 4.0 (3.4-5.1) mmol/L Chloride 102 (98-107) mmol/L Carbon Dioxide 24 (22-32) mmol/L BUN 18 H (7-17) mg/dL Creatinine 0.70 (0.52-1.04) mg/dL Estimated GFR > 60 (>60) mL/min BUN/Creatinine Ratio 25.7 H (6-22) Glucose 120 H (80-110) mg/dL Calcium 9.5 (8.4-10.2) mg/dL Total Bilirubin 1.0 (0.2-1.3) mg/dL AST 28 (14-36) IU/L ALT 21 (<35) IU/L Alkaline Phosphatase 51 (38-126) U/L Total Protein 7.4 (6.3-8.2) g/dL Albumin 4.4 (3.5-5.0) g/dL Globulin 3.0 (1.7-4.1) g/dL Albumin/Globulin Ratio 1.5 (1.0-2.8) MDM Narrative Medical decision making narrative: Otherwise healthy 82-year-old woman with acute onset of diarrhea with blood clots this evening. The loose watery stools and blood clots have continued while in the emergency department. She is hemodynamically stable at this time, complaining of mild nausea. Initial H&H is unremarkable. She is not have an acute abdomen. Negotiated evaluation at this time and will give her a L of fluid, so Gemfran plan on rechecking an H&H as well as drawing a type and screen at 7:00 a.m. this morning. Her primary care physician is Dr. Vanda lehman. I have spoken with Dr. Christopher Hirsch, her covering partner, and they will come and evaluate the patient early this morning to see what the next steps might be. Patient will remain NPO, will obtain admit COVID swab. Will anticipate observation admit that may be subject to private branch exchange service adviser the course of the morning. Discharge Plan Departure Patient Disposition: Admitted as Observation Clinical Impression: Diverticular hemorrhage
[2022-07-28] MEDS: SODIUM CHLORIDE 0.9% 1,000 ML 1000 ML IV (04:47)
[2022-07-28 08:08] LABS: Hematocrit 41.3 % (36-46); Hemoglobin 14.2 g/dL (12.0-16.0)
[2022-07-28 08:36] VITALS: BP 157/67; PULSE 64; TEMP 36.7; O2SAT 97
[2022-07-28 09:27] LABS: COVID19 -Nasal RAPID Negative (Negative)
--- NOTE | 2022-07-28 09:33 | DI.CT.S_ITS ---
PROCEDURE: CT ABDOMEN PELVIS W CON INDICATIONS: IV contrast only/lower abdominal pain/GI bleeding TECHNIQUE: After the administration of intravenous contrast, axial sections acquired from the lung bases to the pubic symphysis. Coronal and sagittal reformats were performed. For radiation dose reduction, the following was used: automated exposure control, adjustment of mA and/or kV according to patient size. COMPARISON: [facility], CT, CT ABDOMEN PELVIS W CON, 07/11/2022, 14:43. FINDINGS: Image quality: Excellent. Lung bases: Unremarkable. Heart: No significant findings. ABDOMEN: Liver: Numerous well-circumscribed hypodensities are again seen scattered in liver parenchyma suggestive of small cysts or biliary hamartomas unchanged in size and appearance from prior study. Gallbladder: Unremarkable. Biliary ducts: Unremarkable. Pancreas: Unremarkable. Spleen: Unremarkable. Adrenal Glands: Unremarkable. Kidneys and Ureters: Unremarkable. Stomach and Bowel: There is no bowel obstruction. Postsurgical changes are again seen in mid abdomen with surgical anastomosis appears grossly intact No gastric or small bowel wall thickening. Diffuse wall thickening involving hepatic flexure, transverse colon descending and sigmoid colon is seen with narrowing of the lumen and very mild pericolonic fat stranding most notably in mid transverse colon concerning for infectious or inflammatory colitis. Sigmoid diverticulosis is seen without significant pericolonic fat stranding or abscess collection. Peritoneum: No abnormal intraperitoneal fluid. No free air. Ventral Wall: Small fat containing umbilical hernia is again seen and unchanged. Abdominal Nodes: No retroperitoneal or mesenteric adenopathy by size criteria. Vessels: Aorta and inferior vena cava are normal in size. PELVIS: Pelvic Organs: Previously described thickened endometrium seen on sagittal view is again seen and is not significantly changed. Bladder: No bladder wall thickening. Dense calcification at base of bladder is again seen and unchanged from prior study.. Pelvic Nodes: No enlarged lymph nodes. Miscellaneous: No hernias are seen. Bones: No suspicious bony lesions. No acute vertebral body compression fracture. Minimal anterolisthesis of L4 on L5 is again seen. Degenerative endplate changes throughout lumbar spine is noted. IMPRESSION: 1. Finding is concerning for infectious or inflammatory colitis most notably involving transverse colon. No abscess collection. No free fluid or free air. No bowel obstruction. Sigmoid diverticulosis without CT evidence of acute diverticulitis. 2. Questionable endometrial thickening in a diminutive uterus unchanged from prior study, WOOL PULLER correlation is recommended. 3. 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 Dictated by: Irwin Landrum M.D. on 07/28/2022 at 10:02 Approved by: Irwin Landrum M.D. on 07/28/2022 at 10:07
[2022-07-28 09:55] LABS: Appearance Urine UA CLEAR; Bilirubin Urine UA NEGATIVE (NEGATIVE); Color Urine UA YELLOW; Glucose Urine UA NEGATIVE (Negative); Ketones Urine UA NEGATIVE (NEGATIVE); Leukocyte Esterase Urine UA 2+ (NEGATIVE); Nitrite Urine UA NEGATIVE (Negative); Occult Blood Urine UA 1+ (Negative); Protein Urine UA NEGATIVE (Negative); Urobilinogen Urine UA 0.2 E.U./dL (0.2)
[2022-07-28 09:56] LABS: pH Urine UA 5.5 (4.5-8.0)
[2022-07-28 10:02] LABS: Bacteria Urine None Seen; Culture Indicated Urine Specimen Cultured; RBC Urine 0-1/HPF (0-5/HPF); Squamous Epithelial Cell Urine 0-1 /HPF (0-5/HPF); WBC Urine 1-5/HPF (0-5/HPF)
[2022-07-28 10:42] VITALS: BP 175/79; PULSE 60; RESP 18; O2SAT 97
== END 2022-07-28 10:47 | disposition home or self-care (01) ==
PROVIDERS: Emergency Medicine; Emergency Provider Emergency Medicine; PCP Internal Medicine
DX: K57.31 Diverticulosis of large intestine without perforation or abscess with bleeding (principal); Z20.822 Contact with and (suspected) exposure to COVID-19
CPT/HCPCS: 36415; 74177; 80053; 81001; 81003; 85014; 85018; 85025; 86850; 86900; 86901; 87086; 87635; 99284; C9803; Q9967

== ENCOUNTER → 2022-09-07 12:16 | Outpatient (CLI) | payer OTHER, SELFPAY ==
--- NOTE | 2022-09-07 | DI.US.S_ITS ---
PROCEDURE: US PELVIC COMPLETE INDICATIONS: THICKENED ENDOMETRIUM ON CT TECHNIQUE: Real-time scanning was performed of the pelvic organs, with image documentation. Additional endovaginal scanning was necessary due to incomplete visualization of the adnexal and endometrial structures by transabdominal scanning. COMPARISON: None. FINDINGS: Retroverted uterus measuring 6.1 x 3.0 x 3.3 cm. No uterine mass. Endometrium is complex and heterogenous with increased vascularity measuring approximately 14 mm in maximum double air thickness. Neither ovary demonstrated. No adnexal mass identified. IMPRESSION: Thickened complex and heterogeneous and hypervascular endometrium. Findings concerning for endometrial carcinoma. We strive to produce accurate, complete, and clear reports of imaging services. To assist us in improving patient care, this report was composed using standard report templates and voice recognition software. Therefore, it may contain abnormal punctuation, insertions and/or omissions. Occasional wrong-word or sound-alike substitutions may occur. Though we review the report and make efforts to correct it, we do recommend that the report be read carefully in proper context to recognize any text inaccuracies. Dictated by: Luis Miller M.D. on 09/07/2022 at 14:42 Approved by: Luis Miller M.D. on 09/07/2022 at 14:44
== END ==
PROVIDERS: PCP Family Medicine; Referring Provider Family Medicine; Visit Provider Family Medicine
DX: R93.89 Abnormal findings on diagnostic imaging of other specified body structures (principal)
CPT/HCPCS: 76830; 76856

== ENCOUNTER → 2022-11-08 14:06 | Outpatient (CLI) | payer OTHER, SELFPAY ==
--- NOTE | 2022-11-08 | DI.MG.S_ITS ---
BILATERAL DIGITAL SCREENING MAMMOGRAM 3D/2D WITH CAD: 11/08/2022 CLINICAL: Routine screening. Family history of breast cancer. Comparison is made to exams dated: 10/28/2021 mammogram, 08/18/2020 mammogram, and 07/22/2019 mammogram - [facility]. Both breasts are heterogeneously dense, which may obscure small masses (category c / 51-75% glandular tissue). Current study was also evaluated with a Computer Aided Detection (CAD) system. No significant masses, calcifications, or other findings are seen in either breast. There has been no significant interval change. IMPRESSION: NEGATIVE There is no mammographic evidence of malignancy. A 1 year screening mammogram is recommended. Based on the Tyrer Cuzick model (a risk assessment model) the patient's lifetime risk is 5.8% and her 10 year risk is 0.0%. According to the ACR, ACS, and NCCN guidelines, an annual breast MRI exam along with mammogram is recommended if the patient's lifetime risk is 20% or greater. This exam was interpreted at Station ID: [id number]. NOTE: For mammograms, a report in lay terms will be sent to the patient. Approximately 15% of breast malignancies will not be visualized mammographically. In the management of a palpable breast mass, a negative mammogram must not discourage biopsy of a clinically suspicious lesion. Electronically Signed By: Kranthi sahu/carlos alberto:11/08/2022 16:43:03 letter sent: Normal Exam ACR BI-RADS Category 1: Negative 3341F
== END ==
PROVIDERS: PCP Family Medicine; Referring Provider Family Medicine; Visit Provider Family Medicine
DX: Z12.31 Encounter for screening mammogram for malignant neoplasm of breast (principal); Z80.3 Family history of malignant neoplasm of breast
CPT/HCPCS: 77063; 77067

== ENCOUNTER 2022-12-26 06:47 | Day surgery (SDC) | payer OTHER, SELFPAY ==
[2022-12-26 07:16] VITALS: BMI 26.5
[2022-12-26 07:25] VITALS: BP 161/69; PULSE 72; RESP 17; TEMP 35.8; O2SAT 97
[2022-12-26] MEDS: LACTATED RINGERS 1,000 ML 42 ML IV (07:35)
--- NOTE | 2022-12-26 07:56 | PM.HP.1 ---
History of Present Illness History of Present Illness Date Patient Seen: 12/26/22 Time Patient Seen: 07:56 Chief complaint: SDC Narrative: I reviewed my office note. No significant changes. PFSH Medical History Bladder dysfunction Thyroid disorder Surgical History History of bladder surgery (1994) History of bladder suspension procedure (1989) History of bladder suspension procedure (~1984) History of bladder suspension procedure (1979) History of third molar tooth extraction Status post tubal ligation (~1970) Family History Father Heart disease Grandfather Heart disease Grandmother Cancer Mother Cancer Grandfather Lung cancer Grandmother No problems noted. Family/Other Diabetes mellitus Social History marital status: household members: spouse Smoking Status: Never smoker Meds Home Medications and Allergies Home Medications Medication Instructions Recorded Confirmed Type VITAMIN B COMPLEX (Vitamin B 1 tab PO QDAY ##0 01/26/13 12/26/22 History Complex) [VITAMIN C] 500 mg PO Q DAY ##0 01/26/13 12/26/22 History [VITAMIN D] 2,000 mg PO Q DAY ##0 01/26/13 12/26/22 History OMEGA-3 FATTY ACIDS (FISH OIL) 1,000 mg PO DAILY ##0 07/12/16 12/26/22 History cyclosporine 0.05 % eye drops in a 1 drp OPHTH Q12H ##0 07/12/16 12/26/22 History dropperette (Restasis) [CO-Q 10] 300 mg PO QDAY ##0 07/15/16 12/26/22 History cyanocobalamin (vitamin B-12) 1,000 mcg PO QDAY ##0 07/15/16 12/26/22 History 1,000 mcg tablet,extended release progesterone micronized 100 mg See Rx Instructions .Route 04/26/22 12/26/22 Rx capsule .COMPLEX #90 caps estradiol 0.5 mg tablet See Rx Instructions .Route 05/16/22 12/26/22 Rx .COMPLEX #90 tabs estradiol 0.01% (0.1 mg/gram) See Rx Instructions .Route 09/22/22 12/26/22 Rx vaginal cream .COMPLEX #42.5 grams levothyroxine 88 mcg tablet 50 mcg PO QAM #0 tabs 12/06/22 12/06/22 History (Synthroid) liothyronine 5 mcg tablet 5 mcg PO DAILY 12/06/22 12/26/22 History Allergies Allergy/AdvReac Type Severity Reaction Status Date / Time wheat Allergy Mild Verified 12/26/22 07:08 doxycycline AdvReac Intermediate Vomiting,Di Verified 12/26/22 07:08 arrhea ciprofloxacin AdvReac Mild VOMITING Verified 12/26/22 07:08 fosfomycin [From Monurol] AdvReac Mild Diarrhea Verified 12/26/22 07:08 gluten [GLUTEN] AdvReac Mild DIARRHEA, Verified 12/26/22 07:08 BLOATING hydrocodone AdvReac Mild VOMITING Verified 12/26/22 07:08 Review of Systems Review of Systems ROS: Yes All systems reviewed with the patient and are negative except as otherwise documented Exam Vital Signs (past 8 hours): - 12/26/22 07:25 Temperature 96.5 F L Pulse Rate 72 Respiratory Rate 17 Blood Pressure 161/69 H Pulse Oximetry 97 Oxygen Delivery Method Room Air Oxygen Delivery Method Room Air Const General: cooperative HENMT Head: normal to inspection Eyes General: appearance normal, both eyes and all related structures Neck Neck: normal visual inspection Chest Chest: normal inspection of the chest Resp Effort & Inspection: normal respiratory effort Cardio Rate: regular rate GI Inspection: normal to inspection Skin General: no rashes or lesions noted Neuro General: patient alert and patient awake Extrem General: normal to inspection and no pedal edema Psych Appearance: grossly normal Assessment & Plan Assessment & Plan narrative: 82-year-old female with abnormal imaging in transient bloody diarrhea. Colonoscopy is pursued today.
--- NOTE | 2022-12-26 07:57 | PM.PREOP ---
Pre-operative Note Interval Note History & Physical reviewed/Exam performed by Physician: Yes Changes to H&P: No ASA Class (for procedural sedation): II
--- NOTE | 2022-12-26 08:21 | P.OP.COLON_ITS ---
Operative Date/Time/Diagnoses Date of procedure: 12/26/22 Time of procedure: 08:21 Pre-op diagnosis: Transient bloody diarrhea, abnormal imaging showing transverse colon colitis, and a personal history of colon polyp Post-op diagnosis: same Procedure & Clinicians Study performed: Incomplete colonoscopy Same procedure as scheduled: No Indications: Transient bloody diarrhea, abnormal imaging showing transverse colon colitis, and a personal history of colon polyp Surgeon: Josias Dickson Procedure Notes SCOAP/Timeout: Done Procedure in detail: After the risks and benefits were explained, written and verbal informed consent was obtained. The patient was brought into the procedure room and placed into the left lateral decubitus position. Please see anesthesia notes for sedation details. Digital rectal examination was accomplished. The scope was introduced into the patient and advanced under direct visualization to the sigmoid colon. The patient had an incredibly tortuous rectosigmoid and despite change in p atient position to supine and even the right lateral decubitus even with abdominal pressure we could not advance the scope beyond this depth. The scope was slowly withdrawn to carefully examine the mucosa for any defects or lesions. Comprehensive imaging was accomplished throughout the rectum including the dentate line. The colon was decompressed, the scope was then removed from the patient who tolerated the procedure well. Scope withdrawal time: Not applicable Sedation minutes: 16 Specimen(s): none sent Complications: none Impression: The patient had diverticulosis noted in the sigmoid. There was a focus of diverticulitis characterized by some scant bloody exudate in the well of 1 of the diverticula. No strictures no mass lesions were apparent. I was only able to get the scope into the very distal aspect of the sigmoid today perhaps 20 cm from the anal verge. Patient had a single column of grade 3 hemorrhoids. Endoscopic diagnosis 1. Incomplete colonoscopy 2. Diverticulosis with a focus of mild diverticulitis 3. Hemorrhoids Post-procedure Plan for aftercare: I recommend consideration of virtual colonography within the next few months to complete the diagnostic examination. Disposition: PACU
[2022-12-26 08:27] VITALS: BP 188/82; PULSE 71; RESP 15; TEMP 36.3; O2SAT 94
[2022-12-26 08:34] VITALS: BP 177/81; PULSE 68; RESP 18; O2SAT 93
[2022-12-26] MEDS: ALBUTEROL/IPRATROPIUM 3 ML AMPUL INH (08:40)
[2022-12-26 08:43] VITALS: BP 146/75; PULSE 65; RESP 12; TEMP 36.4; O2SAT 100
[2022-12-26 08:46] VITALS: BP 164/76; PULSE 68; RESP 12; TEMP 36.6; O2SAT 96
[2022-12-26 08:55] VITALS: BP 165/78; PULSE 76; RESP 18; TEMP 36.3; O2SAT 96
== END 2022-12-26 09:17 | disposition home or self-care (01) ==
PROVIDERS: PCP Family Medicine; Referring Provider Internal Medicine Gastroenterology; Visit Provider Internal Medicine Gastroenterology
PROC: 0DJD8ZZ Inspection of Lower Intestinal Tract, Via Natural or Artificial Opening Endoscopic (ICD-10-PCS; CPT 45378; principal; 2022-12-26 08:00)
DX: R19.7 Diarrhea, unspecified (principal); K92.1 Melena; K52.89 Other specified noninfective gastroenteritis and colitis; K57.30 Diverticulosis of large intestine without perforation or abscess without bleeding; K64.2 Third degree hemorrhoids; Z53.09 Procedure and treatment not carried out because of other contraindication
CPT/HCPCS: 45378; J2704

== ENCOUNTER 2023-02-13 08:16 | Day surgery (SDC) | payer OTHER, SELFPAY ==
[2023-01-17 14:16] VITALS: BMI 26.5
[2023-02-13] VITALS (7 sets, daily range): BP systolic 141–180; BP diastolic 62–78; PULSE 62–69; RESP 13–17; TEMP 36.2–36.6; O2SAT 95–100; BMI 27.1
--- NOTE | 2023-02-13 | PATH_ITS ---
[facility] Accession Number: [id number] No. of containers..02 Tissue . 01 Material submitted: . PART A: endometrium - ENDOMETRIAL POLYPS AND CURRETTAGE PART B: endocervix - ENDOCERVICAL POLYP . 01 Diagnosis: A. Endometrial Polyps and Curettings: Polypoid fragments of lower uterine segment and endometrium with cystic atrophy; negative for significant atypia. Some tissue fragments demonstrate prominent vessels, suggestive of polyp, if clinical and imaging studies are concordant. . B. Endocervical Polyp: Fragments of benign polyp, favor lower uterine segment origin; negative for significant atypia. Some tissue fragments demonstrate prominent vessels, suggestive of polyp, if clinical and imaging studies are concordant. [facility] 02/17/2023 1822 Local . 01 Electronically signed: . Lou Singh MD, Pathologist NPI- [id number] . 01 Gross description: . Part A: ENDOMETRIAL POLYPS AND CURRETTAGE: Received in formalin is multiple fragment of bautista soft tissue measuring 3.0 x 0.9 x 0.5 cm in aggregate. Specimen is submitted in its entirety in 2 cassettes. Part B: ENDOCERVICAL POLYP: Received in formalin is 1 fragment of bautista soft tissue measuring 0.9 x 0.7 x 0.4 cm. Specimen is submitted in its entirety in 1 cassette. /[facility] 02/15/2023 2339 Local . 01 Pathologist provided ICD-10: N85.00, N84.0 . 01 CPT . 782844, [id number] Specimen Comment: A courtesy copy of this report has been sent to [phone] Performed at: 01 [facility] [address] [place] [address] [address], [place], [place] [id number] MD Dharmesh Plasencia MD Phone: [phone]
[2023-02-13] MEDS: LACTATED RINGERS 1,000 ML 100 ML IV (10:08)
--- NOTE | 2023-02-13 12:18 | PM.GYNHP.1 ---
History of Present Illness History of Present Illness Reason for admission: vaginal bleeding (Postmenopausal) Narrative: Corinne Alcaraz is a 83 year old female 3 para 3 with postmenopausal bleeding who presents for a D&C hysteroscopy [facility] Medical History Bladder dysfunction Thyroid disorder Surgical History (Updated 01/17/23 @ 14:50 by Juana Campa RN) History of bladder surgery (1994) History of bladder suspension procedure (1989) History of bladder suspension procedure (~1984) History of bladder suspension procedure (1979) History of third molar tooth extraction Hx of colonoscopy (12/26/22) Status post tubal ligation (~1970) Family History Father Heart disease Grandfather Heart disease Grandmother Cancer Mother Cancer Grandfather Lung cancer Grandmother No problems noted. Family/Other Diabetes mellitus Social History marital status: household members: spouse Smoking Status: Never smoker alcohol intake: current Meds Home Medications and Allergies Home Medications Medication Instructions Recorded Confirmed Type VITAMIN B COMPLEX (Vitamin B 1 tab PO QDAY ##0 01/26/13 12/26/22 History Complex) [VITAMIN C] 500 mg PO Q DAY ##0 01/26/13 12/26/22 History [VITAMIN D] 2,000 mg PO Q DAY ##0 01/26/13 12/26/22 History OMEGA-3 FATTY ACIDS (FISH OIL) 1,000 mg PO DAILY ##0 07/12/16 12/26/22 History cyclosporine 0.05 % eye drops in a 1 drp OPH Q12H ##0 07/12/16 02/13/23 History dropperette (Restasis) [CO-Q 10] 300 mg PO QDAY ##0 07/15/16 12/26/22 History cyanocobalamin (vitamin B-12) 1,000 mcg PO QDAY ##0 07/15/16 02/13/23 History 1,000 mcg tablet,extended release progesterone micronized 100 mg See Rx Instructions .Route 04/26/22 02/13/23 Rx capsule .COMPLEX #90 caps estradiol 0.5 mg tablet See Rx Instructions .Route 05/16/22 02/13/23 Rx .COMPLEX #90 tabs estradiol 0.01% (0.1 mg/gram) See Rx Instructions .Route 09/22/22 02/13/23 Rx vaginal cream .COMPLEX #42.5 grams levothyroxine 88 mcg tablet 50 mcg PO QAM #0 tabs 12/06/22 02/13/23 History (Synthroid) liothyronine 5 mcg tablet 5 mcg PO DAILY 12/06/22 02/13/23 History aspirin 81 mg capsule 81 mg PO DAILY 02/13/23 02/13/23 History Allergies Allergy/AdvReac Type Severity Reaction Status Date / Time wheat Allergy Mild Verified 02/13/23 09:45 doxycycline AdvReac Intermediate Vomiting,Di Verified 02/13/23 09:45 arrhea ciprofloxacin AdvReac Mild VOMITING Verified 02/13/23 09:45 fosfomycin [From Monurol] AdvReac Mild Diarrhea Verified 02/13/23 09:45 gluten [GLUTEN] AdvReac Mild DIARRHEA, Verified 02/13/23 09:45 BLOATING hydrocodone AdvReac Mild VOMITING Verified 02/13/23 09:45 Exam Vital Signs (past 8 hours): - 02/13/23 09:55 Temperature 97.9 F Pulse Rate 65 Respiratory Rate 17 Blood Pressure 180/75 H Pulse Oximetry 100 Oxygen Delivery Method Room Air Oxygen Delivery Method Room Air Narrative Exam Narrative: HEENT: [No thyromegaly, no anterior cervical or supraclavicular lymphadenopathy.] Lungs:[Clear to auscultation bilaterally, no wheezes.] Cardiovascular: [Regular rate and rhythm, no murmurs, rubs, or gallops]. Abdomen: [Well-healed scars. No hepatosplenomegaly. No masses palpable.] External genitalia: [Normal] Vagina: Third-degree uterine prolapse Cervix: Prolapse Bimanual exam: [[5] Week size prolapse uterus. Mobile.] Extremities: No edema Assessment & Plan Assessment & Plan narrative: Assessment: 83-year-old 3 para 3 with postmenopausal bleeding Plan: D&C hysteroscopy The risks, benefits, and alternatives to the procedure were explained to the patient. The risks including bleeding, infection, and uterine perforation. She understands these risks and agrees to proceed. A full par Q was held and consent form was signed. Time Spent With Patient Time with patient: less than 30 minutes
--- NOTE | 2023-02-13 12:20 | PM.PREOP ---
Pre-operative Note COVID-19 Criteria for continued procedure: Non-surgical alternatives not available or appropriate per current SOC Interval Note History & Physical reviewed/Exam performed by Physician: Yes Changes to H&P: No H&P completed within 30 days and has changed as indicated here:: 02/13/23
--- NOTE | 2023-02-13 12:44 | SUR.OPER ---
Lithotomy on padded OR bed, head on pillow, arms secured on padded arm boards at <90 degrees abduction. Legs secured in padded yellow fins stirrups.
--- NOTE | 2023-02-13 13:15 | P.OP_ITS ---
Operative Date/Time/Diagnoses Date of procedure: 02/13/23 Time of procedure: 13:15 Pre-op diagnosis: Postmenopausal bleeding Thickened endometrial lining Post-op diagnosis: same Procedure & Clinicians Procedure: Procedures Operation Date: 02/13/23 09:45 Actual Procedure Side Surgeon p Hysteroscopy D&C w/ poylpectomy endocervical and endometrial Rosalie Mcdermott MD Indications: Postmenopausal bleed Thickened endometrial lining Surgeon: Rosalie Mcdermott Anesthesia Type: General (LMA) Operative Notes Findings: 7 week size prolapsed uterus Both fallopian tube ostia observed To polyps, 1 originating from the posterior fundus of the uterus. One originating from the area around the left fallopian tube ostia Small polyp at 5-6 o'clock inside the cervical canal Closure Type: not applicable Specimen(s): endometrial curettings, endometrial polyp and other (Endocervical polyp) Estimated blood loss (mL): 5 Blood products transfused: none Procedure in detail: After informed consent was obtained, the patient was taken to the operating room where she was placed in the dorsal supine position. After adequate LMA general anesthesia was achieved, she was placed in the dorsal lithotomy position, and prepped and draped in the usual sterile fashion. A time-out was performed. A weighted speculum was placed into the vagina. The cervix was found to be at the introitus. A single-tooth tenaculum was placed on the anterior lip of the ce rvix. The cervical os was sequentially dilated until the hysteroscope could pass easily into the endometrial cavity. Initial inspection revealed both fallopian tube ostia. There was a large polyp originating from the posterior fundus of the uterus. A second smaller polyp was originating from the area around the left fallopian tube ostia. The hysteroscope was removed. Polyp forceps were used to remove the larger polyp. Sharp curettage was performed yielding minimal amount of tissue. The resectoscope pass easily into the endometrial cavity after it was further dilated to the #9 Hegar dilator. The smaller polyp was resected with cautery and cut at 80/60 respectively. The base of the larger polyp was also excised. The instruments were removed from the uterus. There was found to be a small polyp at the 5 o'clock position at the cervical os. The resectoscope loop was used to excise this. A Bovie was used to cauterize the base for hemostasis. The single-tooth tenaculum was removed from the anterior lip of the cervix. There was a small amount of bleeding noted from the tenaculum site. A ring forcep was placed for 1 minute for hemostasis. Sponge, lap, and instrument counts were correct x2. The patient tolerated the procedure well, and was taken to PACU in stable condition. Complications: none Post-operative Condition: stable Disposition: PACU Plan for aftercare: Home after recovery
== END 2023-02-13 14:12 | disposition home or self-care (01) ==
PROVIDERS: PCP Family Medicine; Referring Provider Obstetrics & Gynecology; Visit Provider Obstetrics & Gynecology
PROC: 0UDB8ZZ Extraction of Endometrium, Via Natural or Artificial Opening Endoscopic (ICD-10-PCS; CPT 58558; principal; 2023-02-13 09:45)
DX: N84.0 Polyp of corpus uteri (principal); N84.1 Polyp of cervix uteri
CPT/HCPCS: 58558; J1100; J2405; J2704; J3010

== ENCOUNTER → 2023-03-03 13:01 | Outpatient (CLI) | payer OTHER, SELFPAY ==
--- NOTE | 2023-03-03 13:03 | DI.CT.S_ITS ---
PROCEDURE: CT PELVIS W CON INDICATIONS: Hx of bladder augment, look at planes between bladder/uterus TECHNIQUE: After the administration of intravenous contrast, 5 mm thick sections acquired from the iliac crests to the symphysis. 5 mm coronal and sagittal reformats were acquired. For radiation dose reduction, the following was used: automated exposure control, adjustment of mA and/or kV according to patient size. COMPARISON: [facility], CT, CT ABDOMEN PELVIS W CON, 07/28/2022, 9:52. FINDINGS: Image quality: Excellent. Peritoneum and bowel: Thickening and inflammatory change at the sigmoid colon, (2/29). Diverticulosis. No abscess. Normal appendix. No dilated loops of small bowel. Small bowel anastomosis in the lower midline abdomen. No free fluid or air. Genitourinary: Retroflexed uterus. Trace posterior bladder wall thickening measuring 0.7 cm, (4/41). The bladder projects further posterior into the pelvis than typically seen. The bladder and uterus abut at the left posterior aspect. Calcification in the region of the region of the urethra. Nodes and vessels: No iliac, pelvic, or inguinal adenopathy by size criteria. Iliac vessels demonstrate normal size and enhancement. Circumferential calcified atherosclerotic plaque. Bones: No suspicious bony lesions. Miscellaneous: No inguinal hernias. IMPRESSION: 1. Thickening and inflammatory change about the sigmoid colon. Most consistent with diverticulitis. Recommend clinical correlation. Please ensure up-to-date colonoscopy. 2. Trace thickening of the posterior bladder. The bladder abuts the retroverted uterus. Dictated by: Yash Garrido M.D. on 03/03/2023 at 15:57 Approved by: Yash Garrido M.D. on 03/03/2023 at 16:08
[2023-03-03 13:28] LABS: Estimated Glomerular Filt Rate > 60 mL/min (>60)
== END ==
PROVIDERS: PCP Family Medicine; Referring Provider Obstetrics & Gynecology; Visit Provider Obstetrics & Gynecology
DX: N81.4 Uterovaginal prolapse, unspecified (principal); N95.1 Menopausal and female climacteric states; K57.30 Diverticulosis of large intestine without perforation or abscess without bleeding; Z98.890 Other specified postprocedural states; Z87.448 Personal history of other diseases of urinary system
CPT/HCPCS: 36415; 72193; 82565; Q9967

== ENCOUNTER 2023-03-10 08:25 | Day surgery (SDC) | payer OTHER, SELFPAY ==
[2023-03-02 12:45] VITALS: BMI 26.7
[2023-03-10] VITALS (7 sets, daily range): BP systolic 115–143; BP diastolic 53–60; PULSE 67–78; RESP 10–16; TEMP 36.3; O2SAT 92–100; BMI 26.7
[2023-03-10] MEDS: LACTATED RINGERS 1,000 ML 42 ML IV (09:18)
--- NOTE | 2023-03-10 09:46 | PM.PREOP ---
Pre-operative Note COVID-19 Criteria for continued procedure: Expected advancement of disease process, Deterioration of the patient's condition or overall health, Delay expected to result in less-positive ultimate med/surg outcome and Non-surgical alternatives not available or appropriate per current SOC Interval Note History & Physical reviewed/Exam performed by Physician: Yes Changes to H&P: No
--- NOTE | 2023-03-10 10:44 | SUR.OPER ---
Lithotomy on padded OR bed, head on pillow, arms secured on padded arm boards at <90 degrees abduction. Legs secured in padded yellow fins stirrups.
[2023-03-10] MEDS: ONABOTULINUMTOXINA 100 UNIT VIAL INJ (10:46)
[2023-03-10] MEDS: ONABOTULINUMTOXINA 200 UNIT VIAL INJ (10:46)
--- NOTE | 2023-03-10 11:05 | PM.OP.1 ---
Operative Date/Time/Diagnoses Date of procedure: 03/10/23 Pre-op diagnosis: 1. Urgency incontinence Procedure & Clinicians Procedure: 1. Cystoscopy/injection botulinum toxin a (300 units). Same procedure as scheduled: Yes Indications: 1. Urgency incontinence Surgeon: Gladys Perez Click Yes if Unassisted: Yes Anesthesia Type: General Operative Notes Findings: 1. Stove pipe urethra. 2. 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 3. 1+ trabeculation of bladder with normal ureteral orifices bilaterally. Closure Type: not applicable Specimen(s): none sent Estimated Blood Loss (mL): 0 Blood products transfused: none Procedure in detail: Patient was positioned supine was administered general anesthesia. She was then repositioned semilithotomy and the lower abdomen, genitalia, and groin were then prepped and draped in sterile fashion. The injection cystoscope was then passed into the urethra and bladder with the findings as described above. A total of 300 units (45 cc of Botox) was injected in relatively equal distribution throughout the lower portion of the bladder wall laterally and posteriorly as well as the area the floor posterior to the trigone. Patient tolerated the procedure well. The bladder is then drained completely. The patient was then repositioned in supine, awakened, and then transported recovery in stable condition. Complications: none Post-operative Condition: stable Disposition: PACU Plan for aftercare: Discharge home
== END 2023-03-10 11:48 | disposition home or self-care (01) ==
PROVIDERS: PCP Family Medicine; Referring Provider Specialist; Visit Provider Specialist
PROC: (CPT 52287; principal; 2023-03-10 09:45)
DX: N39.46 Mixed incontinence (principal); N31.9 Neuromuscular dysfunction of bladder, unspecified
CPT/HCPCS: 52287; J0585; J1100; J1885; J2405; J3010

== ENCOUNTER 2023-06-19 09:53 | Day surgery (SDC) | payer OTHER, SELFPAY ==
--- NOTE | 2023-06-19 10:19 | P.HP_ITS ---
History of Present Illness History of Present Illness Date Patient Seen: 06/19/23 Time Patient Seen: 10:19 Chief complaint[place] [facility] [place] Here for flexible sigmoidoscopy. Historically she is had a failed colonoscopy secondary to a fixed tortuous sigmoid. Virtual colonography was accomplished but imaging through the sigmoid was suboptimal. Repeat direct look endoscopy is attempted with a gastroscope here today. [facility] Medical History History of UTI Mixed stress and urge urinary incontinence Neurogenic bladder Thyroid disorder Bladder dysfunction Surgical History History of hysteroscopy (02/13/23) Hx of colonoscopy (12/26/22) History of bladder suspension procedure (1979) History of bladder suspension procedure (~1984) History of bladder suspension procedure (1989) History of bladder surgery (1994) Status post tubal ligation (~1970) History of third molar tooth extraction Family History Father Heart disease Grandfather Heart disease Grandmother Cancer Mother Cancer Grandfather Lung cancer Grandmother No problems noted. Family/Other Diabetes mellitus Brother Diabetes mellitus Social History marital status: household members: spouse Smoking Status: Never smoker alcohol intake: current Meds Home Medications and Allergies Home Medications Medication Instructions Recorded Confirmed Type VITAMIN B COMPLEX (Vitamin B 1 tab PO QDAY ##0 01/26/13 03/10/23 History Complex) [VITAMIN C] 500 mg PO Q DAY ##0 01/26/13 03/10/23 History [VITAMIN D] 2,000 mg PO Q DAY ##0 01/26/13 03/10/23 History OMEGA-3 FATTY ACIDS (FISH OIL) 1,000 mg PO DAILY ##0 07/12/16 03/10/23 History cyclosporine 0.05 % eye drops in a 1 drp OPHTH Q12H ##0 07/12/16 03/10/23 History dropperette (Restasis) [CO-Q 10] 300 mg PO QDAY ##0 07/15/16 03/10/23 History cyanocobalamin (vitamin B-12) 1,000 mcg PO QDAY ##0 07/15/16 03/10/23 History 1,000 mcg tablet,extended release estradiol 0.01% (0.1 mg/gram) See Rx Instructions .Route 09/22/22 03/10/23 Rx vaginal cream .COMPLEX #42.5 grams levothyroxine 88 mcg tablet 50 mcg PO QAM #0 tabs 12/06/22 03/10/23 History (Synthroid) liothyronine 5 mcg tablet 5 mcg PO DAILY 12/06/22 03/10/23 History aspirin 81 mg capsule 81 mg PO DAILY 02/13/23 03/10/23 History amoxicillin 875 mg-potassium 1 tab PO BID #14 tabs 03/13/23 Rx clavulanate 125 mg tablet progesterone micronized 100 mg 100 mg PO QAM #90 caps 04/17/23 Rx capsule estradiol 0.5 mg tablet 0.5 mg PO DAILY #90 tabs 05/08/23 Rx Allergies Allergy/AdvReac Type Severity Reaction Status Date / Time wheat Allergy Mild Verified 06/19/23 10:17 doxycycline AdvReac Intermediate Vomiting,Di Verified 06/19/23 10:17 arrhea ciprofloxacin AdvReac Mild VOMITING Verified 06/19/23 10:17 fosfomycin [From Monurol] AdvReac Mild Diarrhea Verified 06/19/23 10:17 gluten [GLUTEN] AdvReac Mild DIARRHEA, Verified 06/19/23 10:17 BLOATING hydrocodone AdvReac Mild VOMITING Verified 06/19/23 10:17 Review of Systems Review of Systems ROS: Yes All systems reviewed with the patient and are negative except as otherwise documented Exam Const General: cooperative HENMT Head: normal to inspection Eyes General: appearance normal, both eyes and all related structures Neck Neck: normal visual inspection Chest Chest: normal inspection of the chest Resp Effort & Inspection: normal respiratory effort Cardio Rate: regular rate GI Inspection: normal to inspection Skin General: no rashes or lesions noted Neuro General: patient alert and patient awake Extrem General: normal to inspection and no pedal edema Psych Appearance: grossly normal Assessment & Plan Assessment & Plan narrative: 83-year-old female with an abnormal appearing sigmoid on virtual colonography. Direct look flexible sigmoidoscopy is pursued this morning.
--- NOTE | 2023-06-19 10:20 | PM.PREOP ---
Pre-operative Note Interval Note History & Physical reviewed/Exam performed by Physician: Yes Changes to H&P: No ASA Class (for procedural sedation): III
[2023-06-19 10:30] VITALS: BP 129/69; PULSE 72; RESP 16; TEMP 36.2; O2SAT 97; BMI 26.9
[2023-06-19] MEDS: LACTATED RINGERS 1,000 ML 150 ML IV (10:34)
--- NOTE | 2023-06-19 11:15 | PM.OP.COLON ---
Operative Date/Time/Diagnoses Date of procedure: 06/19/23 Time of procedure: 11:15 Pre-op diagnosis: Prior failed optical colonoscopy. Abnormal CT colonography Post-op diagnosis: same Procedure & Clinicians Study performed: Incomplete flexible sigmoidoscopy Same procedure as scheduled: No Indications: Prior failed optical colonoscopy. Abnormal CT colonography Surgeon: Josias Dickson Procedure Notes SCOAP/Timeout: Done Procedure in detail: After the risks and benefits were explained, written and verbal informed consent was obtained. The patient was brought into the procedure room and placed into the left lateral decubitus position. Please see anesthesia notes for sedation details. Digital rectal examination was accomplished. The scope was introduced into the patient and advanced under direct visualization to the cecum as identified by the appendiceal orifice and ileocecal valve. The scope was slowly withdrawn to carefully examine the mucosa for any defects or lesions. Comprehensive imaging was accomplished throughout the rectum including the dentate line. The colon was decompressed, the scope was then removed from the patient who tolerated the procedure well. Gastroscope Bowel prep adequate Scope withdrawal time: Not applicable Sedation minutes: 8 Specimen(s): none sent Complications: none Impression: There was some minimal mucosal irritation in the rectum likely secondary to the administration of a Fleet's enema this morning. Otherwise no significant mucosal pathology. Again the patient had an extremely tortuous rectosigmoid which was completely fixed. Despite abdominal pressure and patient position change into the supine position we could not safely navigate beyond about 20 cm from the anal verge. There was some early diverticulosis in this region. I could see that the mucosa was starting to become stressed on this corner and there was already some mild nonsustained bleeding of the mucosa secondary to the radial force of the scope at this location. I therefore elected to terminate the procedure to avoid a perforation. Endoscopic diagnosis 1. Tortuous colon 2. Incomplete flexible sigmoidoscopy 3. Diverticulosis Post-procedure Plan for aftercare: 1. Follow-up [facility] in regards the upcoming planned surgical procedure. 2. Should there be a requirement for further investigation of the sigmoid colon in advance of [facility] surgery, referral for a double balloon colonoscopy in [place] would be the next step. Disposition: PACU
[2023-06-19 11:16] VITALS: BP 127/61; PULSE 70; RESP 18; TEMP 37.3; O2SAT 97
[2023-06-19 11:21] VITALS: BP 130/55; PULSE 71; RESP 15; O2SAT 97
[2023-06-19 11:26] VITALS: BP 125/59; PULSE 69; RESP 18; O2SAT 97
[2023-06-19 11:35] VITALS: BP 130/61; PULSE 74; RESP 20; TEMP 36.8; O2SAT 98
[2023-06-19 11:45] VITALS: BP 140/70; PULSE 69; RESP 15; O2SAT 98
== END 2023-06-19 11:51 | disposition home or self-care (01) ==
PROVIDERS: PCP Family Medicine; Referring Provider Internal Medicine Gastroenterology; Visit Provider Internal Medicine Gastroenterology
PROC: 0DJD8ZZ Inspection of Lower Intestinal Tract, Via Natural or Artificial Opening Endoscopic (ICD-10-PCS; CPT 45378; principal; 2023-06-19 11:00)
DX: R93.3 Abnormal findings on diagnostic imaging of other parts of digestive tract (principal); R19.7 Diarrhea, unspecified; K57.30 Diverticulosis of large intestine without perforation or abscess without bleeding; Z53.09 Procedure and treatment not carried out because of other contraindication
CPT/HCPCS: 45330; J2704

== ENCOUNTER → 2023-07-24 16:02 | Outpatient (CLI) | payer OTHER, SELFPAY ==
[2023-07-24 17:27] LABS: Carcinoembryonic Antigen 1.9 ng/mL (0.1-3.0)
== END ==
PROVIDERS: Obstetrics & Gynecology; PCP Family Medicine; Referring Provider Family Medicine; Visit Provider Family Medicine
DX: K63.89 Other specified diseases of intestine (principal)
CPT/HCPCS: 82378

== ENCOUNTER → 2023-07-26 11:41 | Outpatient (CLI) | payer OTHER, SELFPAY ==
[2023-07-27 11:09] LABS: Fecal Immunochemical Test Negative (Negative)
== END ==
PROVIDERS: PCP Family Medicine; Referring Provider Obstetrics & Gynecology; Visit Provider Obstetrics & Gynecology
DX: K63.89 Other specified diseases of intestine (principal)
CPT/HCPCS: 82274

== ENCOUNTER → 2023-08-11 15:33 | Outpatient (ROUT) | payer OTHER, SELFPAY ==
[2023-08-11 16:30] LABS: Influenza A - CEPHEID Flu A NEGATIVE (NEGATIVE); Influenza B - CEPHEID Flu B NEGATIVE (NEGATIVE); Respiratory Syncytial Virus Negative (Negative)
[2023-08-11 17:20] LABS: COVID-19 CEPHEID 4-PLEX PCR Negative (Negative)
== END ==
PROVIDERS: PCP Family Medicine; Visit Provider Registered Nurse
DX: Z11.59 Encounter for screening for other viral diseases (principal)
CPT/HCPCS: 0241U

== ENCOUNTER → 2023-11-13 14:06 | Outpatient (CLI) | payer OTHER, SELFPAY ==
--- NOTE | 2023-11-13 | DI.MG.S_ITS ---
BILATERAL DIGITAL SCREENING MAMMOGRAM 3D/2D WITH CAD: 11/13/2023 CLINICAL: Routine screening. Family history of breast cancer. Comparison is made to exams dated: 11/08/2022 mammogram, 08/18/2020 mammogram, 10/28/2021 mammogram, and 07/22/2019 mammogram - [facility]. Both breasts are heterogeneously dense, which may obscure small masses (category c / 51-75% glandular tissue). Current study was also evaluated with a Computer Aided Detection (CAD) system. No significant masses, calcifications, or other findings are seen in either breast. There has been no significant interval change. IMPRESSION: NEGATIVE There is no mammographic evidence of malignancy. A 1 year screening mammogram is recommended. Based on the Tyrer Cuzick model (a risk assessment model) the patient's lifetime risk is 2.5% and her 10 year risk is 0.0%. According to the ACR, ACS, and NCCN guidelines, an annual breast MRI exam along with mammogram is recommended if the patient's lifetime risk is 20% or greater. This exam was interpreted at Station ID: [id number]. NOTE: For mammograms, a report in lay terms will be sent to the patient. Approximately 15% of breast malignancies will not be visualized mammographically. In the management of a palpable breast mass, a negative mammogram must not discourage biopsy of a clinically suspicious lesion. Electronically Signed By: Yash saenz/carlos alberto:11/13/2023 15:19:20 letter sent: Normal Exam ACR BI-RADS Category 1: Negative [id number]
== END ==
LOC: MAMMO 14:06
PROVIDERS: PCP Family Medicine; Referring Provider Family Medicine; Visit Provider Family Medicine
DX: Z12.31 Encounter for screening mammogram for malignant neoplasm of breast (principal); Z80.3 Family history of malignant neoplasm of breast; R92.333 Mammographic heterogeneous density, bilateral breasts
CPT/HCPCS: 77063; 77067

== ENCOUNTER → 2023-12-13 16:08 | Outpatient (CLI) | payer OTHER, SELFPAY | PROVIDERS: PCP Family Medicine; Visit Provider Specialist | DX: Z87.440 Personal history of urinary (tract) infections (principal) | CPT/HCPCS: 87077; 87086; 87186 ==

== ENCOUNTER 2023-12-25 10:09 | Day surgery (SDC) | payer OTHER, SELFPAY ==
[2023-12-18 08:13] VITALS: BMI 27.3
[2023-12-25] VITALS (8 sets, daily range): BP systolic 107–176; BP diastolic 46–84; PULSE 62–76; RESP 14–28; TEMP 36.2–36.6; O2SAT 93–100; BMI 27.3
[2023-12-25] MEDS: LACTATED RINGERS 1,000 ML 21 ML IV ×2 (10:54→12:15)
--- NOTE | 2023-12-25 10:54 | PM.PREOP ---
Pre-operative Note Interval Note History & Physical reviewed/Exam performed by Physician: Yes Changes to H&P: No
--- NOTE | 2023-12-25 11:25 | SUR.OPER ---
Lithotomy on padded OR bed, head on pillow, arms secured on padded arm boards at <90 degrees abduction. Legs secured in padded yellow fins stirrups.
[2023-12-25] MEDS: CEFAZOLIN 2 GM/100 ML PREMIX 100 ML IV (12:05)
[2023-12-25] MEDS: ONABOTULINUMTOXINA 200 UNIT VIAL INJ (12:13)
[2023-12-25] MEDS: ONABOTULINUMTOXINA 100 UNIT VIAL INJ (12:13)
--- NOTE | 2024-01-02 16:57 | P.OP_ITS ---
Operative Date/Time/Diagnoses Date of procedure: 12/25/23 Time of procedure: 09:00 Pre-op diagnosis: Neurogenic bladder Post-op diagnosis: same Procedure & Clinicians Procedure: 1. Cystoscopy/injection botulinum toxin (300 units). Same procedure as scheduled: Yes Indications: 1. Neurogenic bladder. 2. Urinary incontinence. 3. Small bowel augmentation cystoplasty. Surgeon: Gladys Perez Click Yes if Unassisted: Yes Anesthesia Type: General Operative Notes Findings: 1. Urethra-normal appearance without mass, lesion, or discharge. 2. Bladder-the augmentation line can clearly be visualized laterally and posteriorly and then transitioning to typical bladder urothelium in the bladder base in lower lateral and posterior wall. Normal ureteral orifices bilaterally clear efflux. At least 2+ trabeculation. No cellular diverticulum seen. Closure Type: not applicable Specimen(s): none sent Estimated Blood Loss (mL): 0 Blood products transfused: none Procedure in detail: Patient was positioned in supine and was administered general anesthesia. She was then repositioned in semi lithotomy in the lower abdomen, genitalia, groin and vaginal vault were prepped and draped in sterile fashion. The continuous- flow injection cystoscope was then advanced in the lower urinary tract. Under direct visualization, a proximally 1 mL aliquots of diluted botulinum toxin were then injected within the muscularis propria at random in various sites of the trigone and bladder base laterally and posteriorly. Hemostasis was excellent. The bladder was then drained completely and all instrumentation was removed. The patient was then repositioned in supine, was awakened, then transferred to PACU awake and in stable condition. Complications: none Post-operative Condition: stable Disposition: PACU Plan for aftercare: Discharge home
== END 2023-12-25 13:35 | disposition home or self-care (01) ==
PROVIDERS: PCP Family Medicine; Referring Provider Specialist; Visit Provider Specialist
PROC: (CPT 52287; principal; 2023-12-25 11:45)
DX: N31.9 Neuromuscular dysfunction of bladder, unspecified (principal); N39.46 Mixed incontinence
CPT/HCPCS: 52287; J0585; J0690; J1100; J2405; J2704; J3010

== ENCOUNTER → 2024-02-15 14:06 | Outpatient (CLI) | payer OTHER, SELFPAY ==
[2024-02-15 14:57] LABS: Estimated Glomerular Filt Rate > 60 mL/min (>60)
== END ==
LOC: LAB 14:06
PROVIDERS: PCP Family Medicine; Referring Provider Radiology Diagnostic Radiology; Visit Provider Radiology Diagnostic Radiology
DX: Z87.440 Personal history of urinary (tract) infections (principal)
CPT/HCPCS: 36415; 82565

== ENCOUNTER → 2024-02-21 10:19 | Outpatient (CLI) | payer OTHER, SELFPAY ==
--- NOTE | 2024-02-21 10:20 | DI.CT.S_ITS ---
PROCEDURE: CT ABDOMEN PELVIS W CON INDICATIONS: eval ventral hernia TECHNIQUE: After the administration of intravenous contrast, axial sections acquired from the lung bases to the pubic symphysis. Coronal and sagittal reformats were performed. For radiation dose reduction, the following was used: automated exposure control, adjustment of mA and/or kV according to patient size. COMPARISON: [facility], CT, CT ABDOMEN PELVIS W CON, 07/28/2022, 9:52. FINDINGS: Image quality: Diagnostic. Lower Chest: No significant findings. ABDOMEN: Liver: Numerous thin-walled hypodensities throughout the liver. No solid mass. Gallbladder: Decompressed gallbladder without calcifications. Biliary ducts: No biliary dilation. Pancreas: No ductal dilation. Spleen: Size is within normal limits. Adrenal Glands: No adrenal nodules. Kidneys and Ureters: Symmetric enhancement. No nephrolithiasis or hydronephrosis. No hydroureter. Stomach and Bowel: Stomach and small bowel loops are normal caliber. There is a bowel anastomosis in the anterior lower abdomen. Diverticulosis of the descending and sigmoid colon. Mild mucosal hyperemia and decompressed colon. Peritoneum: No abnormal intraperitoneal fluid. No free air. Ventral Wall: There are several small midline fascial defects containing herniated fat. The most cranial one is approximately 4 cm above the umbilicus with the neck measuring 1.6 x 0.8 cm. No discrete umbilical hernia. There is it immediately infraumbilical hernia with a neck measuring 0.8 x 0.9 cm, containing herniated fat. There is an extremely tiny fascial defect about 6.8 cm distal to the umbilicus with the neck measuring about 4 mm. Prior hernia repair cannot be ruled out. Abdominal Nodes: No retroperitoneal or mesenteric adenopathy by size criteria. Vessels: The abdominal aorta, IVC, and portal vein are of normal caliber. Moderate abdominal aortic atherosclerotic calcification. PELVIS: Pelvic Organs: Hysterectomy or diminutive uterus. Ovarian tissue is age-appropriate. Bladder: Irregular, posteriorly displaced urinary bladder. Curvilinear radiodensity at the vesicourethral junction. Anterior and posterior pelvic floor laxity with uterine and rectal prolapse. Pelvic Nodes: No enlarged lymph nodes. Miscellaneous: No inguinal hernias are seen. Bones: No aggressive osseous abnormality. IMPRESSION: Several small fat containing ventral hernias as described. Pelvic floor laxity and surgical changes involving the urinary bladder consistent with history of bladder augmentation. Descending and sigmoid colon diverticulosis. Dictated by: Lauren Alegre M.D. on 02/21/2024 at 13:56 Approved by: Lauren Alegre M.D. on 02/21/2024 at 14:06
== END ==
PROVIDERS: PCP Family Medicine; Referring Provider Surgery; Visit Provider Surgery
DX: K43.2 Incisional hernia without obstruction or gangrene (principal); K57.30 Diverticulosis of large intestine without perforation or abscess without bleeding; Z90.710 Acquired absence of both cervix and uterus
CPT/HCPCS: 74177; Q9967

== ENCOUNTER → 2024-03-26 14:53 | Outpatient (CLI) | payer OTHER, SELFPAY ==
--- NOTE | 2024-03-26 14:55 | DI.RAD.S_ITS ---
PROCEDURE: XR KNEE LT 1TO2V INDICATIONS: Other chronic pain TECHNIQUE: 2 views of the knee were acquired. COMPARISON: [facility], CR, XR KNEE RT 1TO2V, 03/26/2024, 14:15. [facility], CR, XR KNEE LT 3V, 09/12/2019, 13:20. FINDINGS: Bones: Mild degenerative changes. No acute displaced fracture. Soft tissues: Capsular calcifications and chondrocalcinosis. Possible trace effusion. IMPRESSION: Mild degenerative changes. Increased findings of capsular capsular calcifications and chondrocalcinosis. Possible trace joint effusion. If there is high concern for further derangement, consider MRI evaluation. Dictated by: Anupam Peña M.D. on 03/26/2024 at 17:31 Approved by: Anupam Peña M.D. on 03/26/2024 at 17:32
--- NOTE | 2024-03-26 14:55 | DI.RAD.S_ITS ---
PROCEDURE: XR KNEE RT 1TO2V INDICATIONS: Other chronic pain TECHNIQUE: 2 views of the knee were acquired. COMPARISON: [facility], CR, XR KNEE STANDING BILATERAL, 10/17/2019, 11:56. [facility], CR, XR KNEE LT 3V, 09/12/2019, 13:20. FINDINGS: Bones: Mild degenerative changes. Patellar enthesopathy. Soft tissues: Possible small joint effusion. Chondrocalcinosis and capsular calcifications are present. IMPRESSION: Mild osseous degenerative changes, however there are capsular calcifications and chondrocalcinosis. If there is high concern for further derangement, consider MRI evaluation. Dictated by: Anupam Peña M.D. on 03/26/2024 at 17:29 Approved by: Anupam Peña M.D. on 03/26/2024 at 17:31
== END ==
PROVIDERS: PCP Family Medicine; Referring Provider Family Medicine; Visit Provider Family Medicine
DX: M11.262 Other chondrocalcinosis, left knee (principal); M11.261 Other chondrocalcinosis, right knee; M25.561 Pain in right knee; M25.562 Pain in left knee; G89.29 Other chronic pain
CPT/HCPCS: 73560

== ENCOUNTER 2024-04-07 16:45 | Emergency (ER) | payer OTHER, SELFPAY ==
[2024-04-07 16:55] VITALS: PULSE 78; RESP 18; TEMP 36.9; O2SAT 99; BMI 21.2
[2024-04-07] MEDS: FLUORESCEIN 1 MG STRIP EYE-BOTH (18:04)
[2024-04-07] MEDS: PROPARACAINE 0.5% OPHTH SOL 1 DROPS EYE-BOTH (18:04)
--- NOTE | 2024-04-07 20:05 | ED.EYEPROB ---
HPI - Eye Problem General Chief complaint: Eye Problems Stated complaint: both eye feel like they are on fire Time Seen by Provider: 04/07/24 19:47 History of Present Illness HPI Narrative: Patient 84-year-old female history of hyperlipidemia presenting today with bilateral eye pain. She has chronic dry eye she uses refresh drops daily she has for a number of years. She put drops in today and had instant burning in her eyes. She says she uses the vial she has also done this for a number of years. No drainage no fever blurry vision or double vision. She has not sure that she got any sort of chemical but maybe he rubbed her eyes after using flower food for fresh face of perkins. She has not really sure. She wears glasses not contacts Related Data Home Medications Medication Instructions Recorded Confirmed VITAMIN B COMPLEX (Vitamin B 1 tab PO QDAY ##0 01/26/13 03/01/24 Complex) [VITAMIN C] 500 mg PO Q DAY ##0 01/26/13 03/01/24 [VITAMIN D] 2,000 mg PO Q DAY ##0 01/26/13 03/01/24 OMEGA-3 FATTY ACIDS (FISH OIL) 1,000 mg PO DAILY ##0 07/12/16 03/01/24 cyclosporine 0.05 % eye drops in a 1 drp OPHTH Q12H ##0 07/12/16 03/01/24 dropperette (Restasis) [CO-Q 10] 300 mg PO QDAY ##0 07/15/16 03/01/24 cyanocobalamin (vitamin B-12) 1,000 mcg PO QDAY ##0 07/15/16 03/01/24 1,000 mcg tablet,extended release levothyroxine 88 mcg tablet 50 mcg PO QAM #0 tabs 12/06/22 03/01/24 (Synthroid) liothyronine 5 mcg tablet 5 mcg PO DAILY 12/06/22 03/01/24 aspirin 81 mg capsule 81 mg PO DAILY 02/13/23 03/01/24 rosuvastatin 5 mg tablet 5 mg PO DAILY 07/24/23 03/01/24 Previous Rx's Medication Instructions Recorded estradiol 0.5 mg tablet 0.5 mg PO DAILY #90 tabs 05/08/23 cephalexin 250 mg capsule 250 mg PO TID #14 caps 12/25/23 estradiol 0.01% (0.1 mg/gram) 1 g vaginal 2XW #42.5 grams 02/26/24 vaginal cream progesterone micronized 100 mg 100 mg PO QAM #90 caps 04/01/24 capsule erythromycin 5 mg/gram (0.5 %) eye 0.5 inch EYE-BOTH Q4HRWA #3.5 grams 04/07/24 ointment Allergies Allergy/AdvReac Type Severity Reaction Status Date / Time wheat Allergy Mild Verified 03/01/24 11:02 doxycycline AdvReac Intermediate Vomiting,Di Verified 03/01/24 11:02 arrhea ciprofloxacin AdvReac Mild VOMITING Verified 03/01/24 11:02 fosfomycin [From Monurol] AdvReac Mild Diarrhea Verified 03/01/24 11:02 gluten [GLUTEN] AdvReac Mild DIARRHEA, Verified 03/01/24 11:02 BLOATING hydrocodone AdvReac Mild VOMITING Verified 03/01/24 11:02 Patient History Medical History Self-catheterizes urinary bladder History of UTI Mixed stress and urge urinary incontinence Neurogenic bladder Thyroid disorder Bladder dysfunction Surgical History Hx of cystoscopy (03/10/23) History of hysteroscopy (02/13/23) Hx of colonoscopy (12/26/22) History of bladder suspension procedure (1979) History of bladder suspension procedure (~1984) History of bladder suspension procedure (1989) History of bladder surgery (1994) Status post tubal ligation (~1970) History of third molar tooth extraction Family History Father Heart disease Grandfather Heart disease Grandmother Cancer Mother Cancer Grandfather Lung cancer Grandmother No problems noted. Family/Other Diabetes mellitus Brother Diabetes mellitus Social History marital status: household members: spouse lives independently: Yes occupational status: previously employed Smoking Status: Never smoker alcohol intake: current Smoking Status: Never smoker alcohol intake frequency: a few times a month Substance Use Type: does not use Exam Initial Vital Signs Initial Vital Signs: Vital Signs Temperature 98.4 F 08/18/24 16:55 Pulse Rate 78 04/07/24 16:55 Respiratory Rate 18 04/07/24 16:55 Pulse Oximetry 99 04/07/24 16:55 Oxygen Delivery Method Room Air 04/07/24 16:55 GENERAL: Well-appearing, well-nourished and in no acute distress. CARDIOVASCULAR: peripheral pulses in tact, cap refill <2 sec RESPIRATORY: No respiratory distress, speaks in full sentences without difficulty EXTREMITIES: Normal range of motion, no clubbing or edema. Neurovascularly intact NEUROLOGICAL: Cranial nerves II through XII grossly intact. Normal gait and speech. SKIN: Warm, dry, no petechiae, no rashes or lesions. Right and left eye was treated with proparacaine, stained with fluorescein. No dye uptake. No foreign body. PH of both right and left eye is about 8 Course Orders Ordered: Discontinued Medications Erythromycin (Erythromycin Ophth 1 Gm Oint) 1 applic EYE-BOTH NOW ONE Stop: 04/07/24 20:26 Last Admin: 04/07/24 20:31 Dose: 1 applic Documented By: NASIMA Fluorescein Sodium (Fluorescein 1 Mg Strip) 1 mg EYE-BOTH NOW ONE Stop: 04/07/24 17:56 Last Admin: 04/07/24 18:04 Dose: 1 mg Documented By: GAYLE Proparacaine HCl (Proparacaine 0.5% Ophth Kaylie) 1 drops EYE-BOTH NOW ONE Stop: 04/07/24 17:02 Last Admin: 04/07/24 18:04 Dose: 1 drop Documented By: GAYLE Vital Signs Vital signs: Vital Signs - 8 hr 04/07/24 16:55 Temperature 98.4 F Pulse Rate 78 Respiratory Rate 18 Pulse Oximetry 99 Oxygen Delivery Method Room Air MDM - Eye Problem Lab Data Labs: Point of Care Testing pH,Tear Film,POC Measurement pH 8 MDM Narrative Medical decision making narrative: Patient 84-year-old female who presents today with bilateral eye pain and burning that started after she put drops in her eyes. She has been putting the drops in her eyes for number of years. Never had this for. She does see Ophthalmology Dr. Manjula nayak. PH is a 8 in both eyes. No fluorescein dye uptake no foreign body or corneal abrasion. Eyes were flushed in the eye irrigated and I personally put 30 cc in each eye. Proparacaine does seem to help. Possible mild chemical burn versus reaction. She is feeling a lot better. Discharge Plan Departure Patient Disposition: Home Clinical Impression: Eye irritation Instructions: DI for Chemical Eye Burn Activity Restrictions/Additional Instructions: *You have been diagnosed with eye irritation *What to do: Do not put anymore refresher drops in your eye *Continue to take medications as directed Tylenol Motrin as needed for pain Erythromycin ophthalmic ointment every 4 hours while awake *Follow up with your primary care provider in 2-3 days or call [phone] Nayak in the morning for follow-up *Return to ER if you should have increasing pain drainage visual changes or any new, worsening or concerning symptoms Prescriptions: New erythromycin 5 mg/gram (0.5 %) ointment 0.5 inch EYE-BOTH Q4HRWA Qty: 3.5 0RF No Action [VITAMIN C] 500 mg PO Q DAY Qty: 0 [VITAMIN D] 2,000 mg PO Q DAY Qty: 0 VITAMIN B COMPLEX (Vitamin B Complex) 1 tab PO QDAY Qty: 0 OMEGA-3 FATTY ACIDS (FISH OIL) 1,000 mg PO DAILY Qty: 0 cyclosporine [Restasis] 1 EACH dropperette 1 drp OPHTH Q12H Qty: 0 cyanocobalamin (vitamin B-12) 1,000 MCG tablet extended release 1,000 mcg PO QDAY Qty: 0 [CO-Q 10] 300 mg PO QDAY Qty: 0 levothyroxine [Synthroid] 88 mcg tablet 50 mcg PO QAM Qty: 0 estradiol 0.5 mg tablet 0.5 mg PO DAILY Qty: 90 3RF estradiol 0.01 % (0.1 mg/gram) cream 1 g vaginal 2XW Qty: 42.5 4RF progesterone micronized 100 mg capsule 100 mg PO QAM Qty: 90 3RF liothyronine 5 mcg tablet 5 mcg PO DAILY rosuvastatin 5 mg tablet 5 mg PO DAILY cephalexin 250 mg capsule 250 mg PO TID Qty: 14 0RF aspirin 81 mg Capsule 81 mg PO DAILY Referrals: Connie Navarrete MD [Primary Care Provider] - Stand Alone Forms: Patient Portal/API
[2024-04-07] MEDS: ERYTHROMYCIN OPHTH 1 GM OINT 1 APPLIC EYE-BOTH (20:31)
== END 2024-04-07 20:36 | disposition home or self-care (01) ==
PROVIDERS: Emergency Provider Emergency Medicine; PCP Family Medicine
DX: H57.13 Ocular pain, bilateral (principal)
CPT/HCPCS: 99282; 99284

== ENCOUNTER → 2024-09-27 13:04 | Outpatient (CLI) | payer OTHER, SELFPAY ==
--- NOTE | 2024-09-27 13:06 | DI.RAD.S_ITS ---
PROCEDURE: XR CHEST 2V INDICATIONS: Chest pain, unspecified TECHNIQUE: 2 views of the chest were acquired. COMPARISON: None. FINDINGS: Surgical changes and devices: None. Lungs and pleura: Lungs are clear. No pleural effusions or pneumothorax. Mediastinum: Mediastinal contours are normal. Heart size is normal. Bones and chest wall: No suspicious bony abnormalities. Soft tissues appear unremarkable. IMPRESSION: No acute cardiopulmonary abnormality is seen. Dictated by: Bong Giraldo M.D. on 09/28/2024 at 11:39 Approved by: Bong Giraldo M.D. on 09/28/2024 at 11:40
== END ==
PROVIDERS: PCP Family Medicine; Referring Provider Family Medicine; Visit Provider Family Medicine
DX: R07.9 Chest pain, unspecified (principal); R06.09 Other forms of dyspnea
CPT/HCPCS: 71046

== ENCOUNTER → 2024-10-28 09:13 | Outpatient (CLI) | payer OTHER, SELFPAY ==
--- NOTE | 2024-10-28 09:14 | DI.ECHO.S_ITS ---
[facility]---------+ [facility] : : [address] : : [place] : : [id number] : : Phone: [phone] Echocardiogram Report + + :Name: MAYO MEEK Study Date: 10/28/2024 Height: 60 in : :[facility] ReadingLocation: Weight: 142 lb : : Gender: Female BSA: 1.6 m2 : :: 1940 Age: 84 yrs BP: 185/75 mmHg: :Reason For Study: SHORTNESS OF BREATH : :Ordering Physician: SHAKIRA, : :KALPANA Performed By: Luis Peralta : :Referring: KALPANA ROSENBERG : + + Interpretation Summary Mild-moderate concentric left ventricular hypertrophy with ejection fraction 60-65%. Diastolic parameters suggest a relaxation abnormality of the left ventricle, consistent with probable normal filling pressures. Mild aortic valve sclerosis. Mild aortic regurgitation. Procedure: A two-dimensional transthoracic echocardiogram with color flow and Doppler was performed. The study quality was technically adequate. There is no prior echocardiogram noted for this patient. The patient was in normal sinus rhythm during the exam. Left Ventricle: The left ventricle is normal in size. There is mild-moderate concentric left ventricular hypertrophy. There is no ventricular septal defect visualized. The ejection fraction is estimated to be 60-65%. There are no focal wall motion abnormalities. Diastolic parameters suggest a relaxation abnormality of the left ventricle, consistent with probable normal filling pressures. Right Ventricle: The right ventricle is not well visualized. Atria: The left atrial size is normal. Right atrium not well visualized secondary to technical limitations. There is no Doppler evidence for an interatrial shunt. Mitral Valve: The mitral valve leaflets appear mildly thickened, but open well. The mitral valve leaflets appear to open well. There is trace mitral regurgitation. Aortic Valve: There is mild aortic valve sclerosis. The aortic valve opens well. There is mild aortic regurgitation. Tricuspid Valve: The tricuspid valve is not well visualized. There is a trace or physiologic amount of tricuspid regurgitation. Pulmonic Valve: The pulmonic valve is not well visualized. There is no pulmonic valvular regurgitation. Great Vessels: The aortic root is normal size. The ascending aorta could not be visualized. The pulmonary is not well visualized. The inferior vena cava appeared normal. Pericardium/ Pleura There is no pericardial effusion. There is no pleural effusion. MMode/2D Measurements & Calculations LVIDd: 3.7 cm LVOT diam: 1.9 cm LVIDs: 2.8 cm Ao root diam: 3.3 cm FS: 23.5 % Ao Arch Diam (Prox Trans): 1.7 cm EPSS: 0.70 cm IVSd: 1.5 cm LVPWd: 1.3 cm LV collins. diameter/BSA (cm/m^2): 2.3 LV sys. diameter/BSA (cm/m^2): 1.7 LA A2 area: 15.6 cm2 IVC diam: 1.9 cm LA A4 area: 12.7 cm2 LA length (vol): 4.6 cm LA vol: 36.2 ml LA vol index: 22.4 ml/m2 TAPSE: 2.3 cm Doppler Measurements & Calculations Ao V2 max: 125.8 cm/sec LVOT Max Amol: 94.1 cm/sec Ao V2 mean: 79.2 cm/sec LV V1 max P.5 mmHg Ao max P.3 mmHg LV V1 VTI: 22.2 cm Ao mean P.9 mmHg KEE(I,D): 2.5 cm2 Ao V2 VTI: 25.3 cm KEE(V,D): 2.2 cm2 sev ratio: 0.87 KEE indexed to BSA (cm^2/m^2): 1.6 MV E max amol: 71.8 cm/sec PA V2 max: 64.3 cm/sec MV A max amol: 85.4 cm/sec PA V2 mean: 40.5 cm/sec MV E/A: 0.84 PA mean P.76 mmHg Med Peak E' Amol: 6.0 cm/sec PA pr(Accel): 55.0 mmHg E/E' med: 12.0 Lat Peak E' Amol: 6.3 cm/sec E/E' lat: 11.3 E/e' average: 11.7 MV dec time: 0.23 sec SV(LVOT): 64.1 ml Electronically signed by: Lida Lyons on Reading Physician:10/28/2024 10:51 AM
== END ==
PROVIDERS: PCP Family Medicine; Referring Provider Family Medicine; Visit Provider Family Medicine
DX: I35.1 Nonrheumatic aortic (valve) insufficiency (principal); I35.8 Other nonrheumatic aortic valve disorders; R06.09 Other forms of dyspnea; R07.9 Chest pain, unspecified
CPT/HCPCS: 93306

== ENCOUNTER → 2024-11-19 15:57 | Outpatient (CLI) | payer OTHER, SELFPAY ==
--- NOTE | 2024-11-19 15:57 | DI.MG.S_ITS ---
MM screening mammo BI: 11/19/2024. BI-RADS: 1 CLINICAL: 84-year old female for bilateral screening mammogram. Tyrer-Cuzick lifetime risk of 1.0%. No personal or first-degree family history of breast cancer. PRIOR EXAMS 11/13/2023, 11/08/2022, 10/28/2021, 08/18/2020, 07/22/2019, 07/24/2018, 07/06/2018, 06/29/2017, 06/27/2016, 06/25/2015. MAMMOGRAPHY TECHNIQUE: 2D and 3D (tomosynthesis) digital mammographic views obtained, with additional images as needed for full coverage. Current study was also evaluated with a Computer Aided Detection (CAD) system. DENSITY C. The breasts are heterogeneously dense, which may obscure small masses. MAMMOGRAPHY FINDINGS Bilateral: No suspicious mass, asymmetry, microcalcification, or other abnormality seen. No significant change from comparison. IMPRESSION: * No evidence of malignancy. RECOMMENDATIONS Bilateral * Annual screening mammography. OVERALL ASSESSMENT CATEGORY BI-RADS-1: Negative. The [employer] recommends annual screening mammography beginning at age 40 for women with average risk of breast cancer. ELECTRONICALLY SIGNED: Janet Holm M.D. on 11/20/2024 at 01:03:12 PM PT Interpreting Station ID: [id number]
== END ==
PROVIDERS: PCP Family Medicine; Referring Provider Family Medicine; Visit Provider Family Medicine
DX: Z12.31 Encounter for screening mammogram for malignant neoplasm of breast (principal); R92.333 Mammographic heterogeneous density, bilateral breasts
CPT/HCPCS: 77063; 77067

== ENCOUNTER → 2024-12-13 15:24 | Outpatient (CLI) | payer OTHER, SELFPAY | PROVIDERS: PCP Family Medicine; Visit Provider Urology | DX: N39.46 Mixed incontinence (principal); Z87.440 Personal history of urinary (tract) infections | CPT/HCPCS: 87086 ==

== ENCOUNTER → 2024-12-26 08:38 | Outpatient (CLI) | payer OTHER, SELFPAY | PROVIDERS: PCP Family Medicine; Visit Provider Urology | DX: Z87.440 Personal history of urinary (tract) infections (principal) | CPT/HCPCS: 87086 ==

== ENCOUNTER 2025-01-10 06:19 | Day surgery (SDC) | payer OTHER, SELFPAY ==
[2025-01-07 07:21] VITALS: BMI 27.5
[2025-01-10 06:45] VITALS: BP 103/65; PULSE 72; RESP 16; TEMP 36.2; O2SAT 98; BMI 27.5
[2025-01-10] MEDS: LACTATED RINGERS 1,000 ML 21 ML IV (06:50)
--- NOTE | 2025-01-10 07:40 | PM.PREOP ---
Pre-operative Note COVID-19 COVID-19 status: Not tested Interval Note History & Physical reviewed/Exam performed by Physician: Yes Changes to H&P: No
[2025-01-10] MEDS: CEFAZOLIN 2 GM/100 ML PREMIX 100 ML IV (08:02)
--- NOTE | 2025-01-10 08:08 | SUR.OPER ---
Lithotomy on padded OR bed, head on pillow, arms secured on padded arm boards at <90 degrees abduction. Legs secured in padded yellow fins stirrups.
[2025-01-10] MEDS: ONABOTULINUMTOXINA 300 UNIT INJ (08:11)
[2025-01-10 08:24] VITALS: BP 168/67; PULSE 74; RESP 12; TEMP 36.9; O2SAT 99
[2025-01-10 08:29] VITALS: BP 151/65; PULSE 73; RESP 13; O2SAT 97
[2025-01-10 08:33] VITALS: BP 146/65; PULSE 74; RESP 11; O2SAT 96
[2025-01-10 08:39] VITALS: BP 134/55; PULSE 75; RESP 14; O2SAT 97
--- NOTE | 2025-01-10 08:41 | PM.OP.1 ---
Operative Date/Time/Diagnoses Date of procedure: 01/10/25 Time of procedure: 08:00 Pre-op diagnosis: Mixed urinary incontinence Post-op diagnosis: same Procedure & Clinicians Procedure: Cystoscopy Intravesical instillation of 300 units of Botox Same procedure as scheduled: Yes Indications: 84 y/o F noted to have a complex Urological history to include an MMK and a bladder augmentation who has a neurogenic bladder that is managed w/ CIC and has urinary incontinence that worsens in between catheterization episodes and does not void on her own at all. She has experienced significant improvement with intravesical Botox instillation in the past and is strongly interested in a repeat procedure. Surgeon: Damian ePoples Click Yes if Unassisted: Yes Anesthesia Type: General Operative Notes Findings: Previous bladder augmentation evident Closure Type: not applicable Specimen(s): none sent Estimated Blood Loss (mL): 2 Blood products transfused: none Procedure in detail: Patient was identified in the preoperative holding area and consent confirmed. She was then brought to the operating room where general anesthesia was induced.? She was then placed in the low lithotomy position. She was then prepped and draped in the usual sterile fashion. A surgical timeout was conducted and all were in agreement. Access to the bladder was obtained via a 21Fr cystoscope.? Complete cystoscopy was performed and no concerning masses or lesions were noted. Bilateral ureterla orifices were easily visualized and noted to be orthotopic in nature. Changes consistent with a prior bladder augmentation were noted along the dome of her bladder. A total of 300 units of Botox were then mixed with 30cc of sterile saline. 30 separate 1cc aliquots were instilled along the posterior bladder wall. Hemostasis was evaluated at case end and noted to be excellent. The bladder was then drained and the cystoscope was removed.? Anesthesia was reversed, she was extubated in the OR and transferred to the PACU in stable condition for recovery. Complications: none Post-operative Condition: stable Disposition: PACU Plan for aftercare: Discharge home from PACU. Will return to Urology clinic when her symptoms worsen for a repeat procedure.
== END 2025-01-10 08:53 | disposition home or self-care (01) ==
PROVIDERS: PCP Family Medicine; Referring Provider Urology; Visit Provider Urology
PROC: (CPT 52287; principal; 2025-01-10 07:45)
DX: N39.46 Mixed incontinence (principal); N32.81 Overactive bladder; N31.9 Neuromuscular dysfunction of bladder, unspecified
CPT/HCPCS: 52287; J0585; J0690; J2405; J2704; J3010

== ENCOUNTER → 2025-03-20 11:18 | Outpatient (CLI) | payer OTHER, SELFPAY | LOC: RESP 11:19 | PROVIDERS: PCP Family Medicine; Referring Provider Family Medicine; Visit Provider Family Medicine | DX: R06.09 Other forms of dyspnea (principal); R94.2 Abnormal results of pulmonary function studies | CPT/HCPCS: 94060; 94726; 94729 ==

== ENCOUNTER → 2025-07-14 15:48 | Outpatient (CLI) | payer OTHER, SELFPAY ==
[2025-07-14 16:47] LABS: Appearance Urine UA CLOUDY; Bilirubin Urine UA NEGATIVE (NEGATIVE); Color Urine UA YELLOW; Glucose Urine UA NEGATIVE (Negative); Ketones Urine UA NEGATIVE (NEGATIVE); Leukocyte Esterase Urine UA TRACE (NEGATIVE); Nitrite Urine UA POSITIVE (Negative); Occult Blood Urine UA TRACE-INTACT (Negative); Protein Urine UA NEGATIVE (Negative); Specific Gravity Urine UA 1.010 (1.000-1.035); Urobilinogen Urine UA 0.2 E.U./dL (0.2)
[2025-07-14 17:03] LABS: pH Urine UA 6.5 (4.5-8.0)
[2025-07-14 17:04] LABS: Culture Indicated Urine Specimen Cultured
== END ==
PROVIDERS: PCP Family Medicine; Referring Provider Obstetrics & Gynecology Gynecology; Visit Provider Obstetrics & Gynecology Gynecology
DX: R30.0 Dysuria (principal)
CPT/HCPCS: 81001; 87077; 87086

== ENCOUNTER 2025-07-21 06:20 | Day surgery (SDC) | payer OTHER, SELFPAY ==
[2025-06-30 15:20] VITALS: BMI 27.1
--- NOTE | 2025-07-08 13:00 | PM.GYNHP.1 ---
History of Present Illness History of Present Illness Narrative: Corinne Alcaraz is a 85 year old female Date of procedure:?? 07-21-2025 Preoperative diagnosis:? uterine prolapse rectocele cystocele - also does CIC for neurogenic bladder, no need for postop voiding trial - also prior Becerra, prior Botox Planned Procedure:?? Vaginal hysterectomy Sacrospinous ligament vaginal vault suspension Posterior colporrhaphy with levator plication, to narrow the widened introitus and widened pelvic floor muscles possible anterior colporrhaphy (unlikely) We discussed surgical options to include the following 1. SSL-hysteropexy / IL 2. TVH with SSL-VVS / IL 3. TVH with USL-VVS / IL 4. Laparoscopic hyst and colpopexy I do not recommend option 4. Far too risky, due to bladder augmentation I do not recommend option 3. I do not believe that I will be able to get a good suspension on the uterosacral ligaments due to pelvic adhesions from her prior surgery Option 1 or 2 both would be fine, she prefers to have the uterus removed Postop Meds Tylenol 1000 mg, ?3 times a day? Motrin 400 mg (over age 65 yr) ? 3 times a day Oycodone 5 mg,? take 1 pill every 4-6 hr as needed, # 15? Colace,? 1 pill BID, for constipation CC: uterine prolapse HPI: 84-year-old female who presents for evaluation of above complaint.?? She reports onset of symptoms many years ago.?? She considers this a? Moderate? problem. She has a complex surgical history that will limit her treatment options for her vaginal prolapse. She reports a history of urinary incontinence for which she underwent a vaginal urethropexy and an abdominal urethropexy by a low-transverse incision. This was 40 years ago. These surgeries failed. Subsequently she underwent a bladder augmentation. She has a vertical midline incision that runs almost the full length of her abdominal wall. So she clearly has a high risk of surgical complications related to laparoscopy as well as vaginal hysterectomy. She has uterine prolapse that protrudes past the introitus. It is a large bulge. She has no other prolapse symptoms other than the bulge. She has tried and failed several pessaries with Dr. Mcdermott. She presents for surgical consultation. We discussed how she is at high risk for surgical complications. She understands this. It is the reason that no one has wanted to operate on her, and she has chosen not to have surgery. She was referred to me for a discussion of options. We discussed that we could look laparoscopically to define the anatomy, but that even by itself carries a risk of injury to the small bowel due to her extensive intestinal surgical history and large scars all done via open surgery. Separate from that, there is a risk from doing vaginal hysterectomy that could injure the bladder and or the bladder augmentation surgery, or be compromised by adhesions from that surgery. The safest surgical option would be to do a sacrospinous ligament history of pexy because it avoids entering the abdominal cavity and avoids removing the uterus. She voices interested in this. Separately, for her bladder condition, the bladder augmentation did not really help her. She has to use clean intermittent catheterization, CIC, 12 times a day. She does it 9 times in the daytime and 3 times overnight, due to overactive bladder symptoms. She previously used oxybutynin 40 years ago. Has not used any of the more moderate medications by her memory. She instead gets Botox injected into the bladder about every 9-12 months, and this helps her with her overactive bladder symptoms. She does wear a light pad for minor leaking. But mostly the issue was having the catheterize 12 times per 24 hours. Most patients with this problem would only catheterize 3-4 times after having a bladder augmentation. We discussed that she can definitely continue the Botox injections every 9-12 months. It might be reasonable to try a new her overactive bladder medication if she wants to not go through the Botox injections. The medicine may or may not work as well as the Botox. She is healthy and physically active and a candidate for surgery Socially, her spouse passed recently prior hyst -no ? Pelvic Floor Review of Systems: (HPI) Stress Urinary Incontinence symptoms (CARRIE): None Triggers include:? Urge Incontinence symptoms (Urge UI): Occasional Triggers include:??? [Full bladder with urge, ? Pads: She wears 1 light pad a day Overactive Bladder symptoms (OAB):? ? Frequency: Every 2 hour Nocturia: 3 ? Urgency: Yes, all though it is more of a pressure symptom for her Prior incontinence treatment includes:? Medical: Yes ? Surgical: Yes, see above ? Kegels:?? Yes Physical therapy:?No? Pessary:?No?for incontinence, yes for prolapse, failed several of them Diet / Fluids: Fluid restriction:? No Excessive fluids:?No Pain symptoms:? Painful bladder:???No Dysuria:???No Dyspareunia:? No Dysmenorrhea:? No Urinary Risk Factors UTI?s, recurrent:? [No Hematuria:? No Kidney Stones:?No? Tobacco use:? No Pelvic Organ Prolapse (POP) symptoms:?? Bulge: Yes Pressure and /or Heaviness: No Splint for defecation or voiding: No Voiding dysfunction: Does not really apply to her given her bladder augmentation and need for self catheterization. Bowel Function: Constipation: No Strain to defecate: No Fiber: No Laxatives: No Fecal Incontinence:? Liquid stool:? No Solid stool:?No?? Sexually active:?No Incontinence with sex:? No ? General Review of Systems: Constitutional, CV, Endo, Musc-skel, Eyes, Cancer, Skin, Breast, GI, Heme/Lymph, Psych, Urinary, Neuro, Lodge Officer, Resp, Sexual:??? Pertinent positives listed above in HPI All others reviewed and negative. . . PFSH Allergies wheat Allergy (Mild, Verified 07/08/25 09:28) doxycycline Adverse Reaction (Intermediate, Verified 07/08/25 09:28) Vomiting,Diarrhea ciprofloxacin Adverse Reaction (Mild, Verified 07/08/25 09:28) VOMITING fosfomycin (From Monurol) Adverse Reaction (Mild, Verified 07/08/25 09:28) Diarrhea gluten (GLUTEN) Adverse Reaction (Mild, Verified 07/08/25 09:28) DIARRHEA, BLOATING hydrocodone Adverse Reaction (Mild, Verified 07/08/25 09:28) VOMITING Medical History (Updated 01/22/25 @ 10:18 by Elvis Gonzalez MD) OAB (overactive bladder) Coronary artery calcification HTN (hypertension) HLD (hyperlipidemia) Self-catheterizes urinary bladder History of UTI Mixed stress and urge urinary incontinence Neurogenic bladder Thyroid disorder Bladder dysfunction Surgical History (Updated 01/07/25 @ 07:25 by Juana Campa RN) Hx of cystoscopy (12/25/23) Hx of cystoscopy (03/10/23) History of hysteroscopy (02/13/23) Hx of colonoscopy (12/26/22) History of bladder suspension procedure (1979) History of bladder suspension procedure (~1984) History of bladder suspension procedure (1989) History of bladder surgery (1994) Status post tubal ligation (~1970) History of third molar tooth extraction Family History Father Heart disease Grandfather Heart disease Grandmother Cancer Mother Cancer Grandfather Lung cancer Grandmother No problems noted. Family/Other Diabetes mellitus Brother Diabetes mellitus Social History marital status: household members: spouse lives independently: Yes occupational status: previously employed Tobacco & Substance Use Smoking Status: Never smoker alcohol intake: current Exam Vitals 07/08/2509:29 Height 5 ft Weight 138 lb BMI 26.9 BP 134/77 Blood Pressure Location Rt radial Position Sitting Pulse 65 Pulse Source Monitor Pulse Oximetry (%) 97 Oxygen Delivery Method room air Narrative: General: healthy, alert, coherent, no acute distress, cooperative, nontoxic Pulmonary: normal breathing, no distress Abdomen: soft, no mass, non-distended, no hernia, non-tender Skin: Scars on Abd: large vertical midline incision runs the entire abdomen Vulva: Normal labia majora, labia minora, introitus, and clitoris, non-tender Urethra meatus: normal, no discharge Perineum: Normal, non-tender Urethra: No mass, non-tender Bladder: no mass, non-tender Vagina: No lesions, no discharge, mild atrophy, non-tender Prolapse stage III uterus only Levators: Non-tender, Cervix: Normal, No lesions, no discharge, non-tender Uterus: normal size, non-tender Bimanual: no mass, no adnexal mass, non-tender Anus: No lesion, non-tender, no hemorrhoid Empty Cough Stress test: Neg PVR: Not done Urethral angle hypermobile: No Pelvic Organ Prolapse: Yes POP-Q Exam: Aa: -3 Ba: -3 Ap: -3 Bp: -3 C: +4 D: -5 TVL: 9 GH: 3.5 PB: 3 Introitus size: 2 fingerbreadths Cystocele stage: 0-1 Rectocele stage: 0 2 Uterine/Vault Prolapse Stage: 3 Assessment & Plan (1) Uterine prolapse: Status: Acute (2) OAB (overactive bladder): Status: Acute (3) History of bladder suspension procedure: 4. h/o bladder augmentation and full lenght abd wall incision Assessment and Plan ? Patient counseled regarding above conditions.? Educational materials given to patient. 1. Pelvic Organ Prolapse - Stage 3, uterus. This diagnosis and its etiology was discussed with the patient.? Treatment options were discussed including: expectant management, pessary trial, and surgical intervention. We briefly discussed risks and benefits of surgery. All surgery for prolapse is not 100% successful and there is a chance of recurrence or failure. She has failed several pessaries. Declines further pessary she is considering surgery. my recommendation = sacrospinous ligament hysteropexy, possibly with a posterior colporrhaphy that would be done to narrow the vagina , so that the uterus did not prolapse again later see below for counseling 2. Overactive bladder and urge incontinence.?? This diagnosis and its etiology was discussed with the patient.? Treatment options were discussed including: Behavior changes ( Limit fluid intake, Avoiding fluid intake 3 hours before bedtime, Avoiding bladder irritants / follow bladder diet, Bladder training exercises), Kegel / pelvic floor muscle exercises,? OAB Medications, and procedures to include:? bladder botox A injections, Interstim, and PTNS.?? Complex history, see above Continue bladder Botox injections every 9-12 months She could try to switch to using overactive bladder medications wants the Botox fails, if she would prefer to use those instead of the Botox. Follow-up: For now, she chooses observation. Follow up as needed. Likely she will choose surgery when her prolapse starts to get worse and bother her more, she says. CC = follow-up for:? Severe uterine prolapse ? HPI - 85-year-old female returns for follow up for her uterine prolapse. Last seen 3-1/2 months ago. See prior consult. She has a complicated surgical history of a Becerra urethropexy that follow the vaginal urethropexy, done by low-transverse incision. Then had a midline abdominal incision with the bladder augmentation procedure done. She now reports that her prolapse is much worse. It is the size of a pair coming through the vaginal opening with strain. She would like to proceed with surgery. She would like to have her uterus out. We discussed surgical options to include the following 1. SSL-hysteropexy / IL 2. TVH with SSL-VVS / IL 3. TVH with USL-VVS / IL 4. Laparoscopic hyst and colpopexy I do not recommend option 4. Far too risky, due to bladder augmentation I do not recommend option 3. I do not believe that I will be able to get a good suspension on the uterosacral ligaments due to adhesions from her prior surgery Option 1 or 2 both would be fine, she prefers to have the uterus removed Based on the exam below, the cervix is quite enlarged, likely from hypertrophy from sitting on it due to the prolapse. Therefore removal of the cervix we will probably decrease the size of the mass and give better apical support. Therefore, I think it is reasonable to proceed with vaginal hysterectomy and sacrospinous ligament vault suspension and posterior colporrhaphy. Exam ? General:? healthy, alert, coherent, no acute distress Repeat pelvic exam below. In the prior exam listed further below. The notable changes from today's exam are bolded. Basically has more severe prolapse of all 3 sides. Vulva: Normal labia majora, labia minora, introitus, and clitoris, non-tender Urethra meatus: normal, no discharge Perineum: Normal, non-tender Urethra: No mass, non-tender Bladder: no mass, non-tender Vagina: No lesions, no discharge, mild atrophy, non-tender Prolapse stage III Levators: Non-tender, Cervix: Normal, No lesions, no discharge, non-tender Uterus: normal size, non-tender Bimanual: no mass, no adnexal mass, non-tender Anus: No lesion, non-tender, no hemorrhoid needs TVH, VVS, IL with levator plication to narrow with wide introitus and pelvic floor muscles. today POP-Q Exam: Aa: -3 Ba: +3 Ap: -1 Bp: -1 C: +5 D: -5 TVL: 9 GH: 3.5 PB: 3 Introitus size: now at 3 fingerbreadths Cystocele stage: 3, upper cystocele Rectocele stage: 3, upper rectocele Uterine/Vault Prolapse Stage: 3 Prior POP-Q Exam: Aa: -3 Ba: -3 Ap: -3 Bp: -3 C: +4 D: -5 TVL: 9 GH: 3.5 PB: 3 Introitus size: 2 fingerbreadths Cystocele stage: 0-1 Rectocele stage: 0-1 Uterine/Vault Prolapse Stage: 3 ? Assessment: Stage III prolapse involving all 3 sides, getting worse, Uterine prolapse Rectocele Cystocele Now desires surgery Recommendations: Vaginal hysterectomy Sacrospinous ligament vaginal vault suspension Posterior colporrhaphy with levator plication, to narrow the widened introitus and widened pelvic floor muscles Surgical Counselling Note Patient seen for surgical counselling.? She desires surgical repair. Please see? H & P for exam and discussion. Date of procedure:?? 07-21-2025 Preoperative diagnosis:? uterine prolapse rectocele cystocele - also does CIC for neurogenic bladder, no need for postop voiding trial - also prior Becerra, prior Botox Planned Procedure:?? Vaginal hysterectomy Sacrospinous ligament vaginal vault suspension Posterior colporrhaphy with levator plication, to narrow the widened introitus and widened pelvic floor muscles possible anterior colporrhaphy (unlikely) We discussed surgical options to include the following 1. SSL-hysteropexy / IL 2. TVH with SSL-VVS / IL 3. TVH with USL-VVS / IL 4. Laparoscopic hyst and colpopexy I do not recommend option 4. Far too risky, due to bladder augmentation I do not recommend option 3. I do not believe that I will be able to get a good suspension on the uterosacral ligaments due to pelvic adhesions from her prior surgery Option 1 or 2 both would be fine, she prefers to have the uterus removed Postop Meds Tylenol 1000 mg, ?3 times a day? Motrin 400 mg (over age 65 yr) ? 3 times a day Oycodone 5 mg,? take 1 pill every 4-6 hr as needed, # 15? Colace,? 1 pill BID, for constipation Patient counseled extensively about the Risks, Benefits, and Alternatives to surgery.? She was offered the opportunity to ask any questions, and all questions were answered. ? Surgical Risks include: Bleeding, Hemorrhage, Transfusion, Infection (especially wound or bladder), Injury to adjacent organs (especially bladder, ureter, bowel, blood vessels, nerves), Postop or Chronic Pain, need for Reoperation, and Life-threatening event (especially M.I., CVA, PE, DVT). Procedure Risks include: Failure to Cure condition, Recurrence of condition months or years later, Urinary incontinence, Voiding dysfunction or Urinary Retention with prolonged catheter use, Poor wound healing, Erosions of any mesh or graft used, Dyspareunia, Vaginal scarring or narrowing, Need for additional surgery (immediate or delayed).? The expected cure and improvement and failure rates were discussed. Patient counseled to avoid the following for 6 weeks after surgery: (1) Impact sports (like running or jumping), walking and stairs OK (2) Lifting over 20# (3) Sexual intercourse No limits after 6 weeks. ? Good exercise tolerance, > 4 Mets. Her current medications were reviewed, and instructions given over which to use and which to discontinue before surgery.? Post-operative care instructions reviewed.? We discussed post-operative pain: Pain should be in the mild-moderate range, but can be moderate-severe for the first few days.?? Prescriptions will typically be given for (1) acetaminophen (Tylenol) and (2) non-steroidal anti-inflammatory drug (NSAID, like Motrin or Naprosyn), use both together, around the clock. Prescription will also be given for a (3) narcotic pain medication. Use the narcotic as needed, as a booster to the Tylenol and NSAID. You might need 0-4 narcotic pills a day typically. The narcotic will only be needed for a few days.?? Gradually use less of the narcotic, but continue the Tylenol and NSAID.? After a few days, the narcotic should no longer be needed, and only the Tylenol and NSAID will be needed.? Warm packs or cold packs can also be used for pain.??Do not drive for as long as you are using the narcotic pain medication? - this should only be a few days.?? Constipation is associated with use of narcotic pain medications, and can be improved with use of a stool softener, or fiber, or a mild laxative.? If you are sent home from the hospital with a Vargas Catheter in place:? please call the office on the day after surgery We will usually remove the catheter 2-4 days after surgery: a. You will perform an at home Vargas catheter removal -or- b. You will come in to the office for a voiding trial, (For some unusual surgeries, we might leave the catheter in for up to 2 weeks, and then remove it.) Instructions for at home Vargas catheter removal..... For at-home Vargas catheter removal, this can be done on postop day 2 or 3 or 4, depending on various factors. 1. At 6 or 7 a.m., have the patient cut the Vargas catheter with scissors, while standing in a shower or bath tub. a. Cut the catheter right in the middle of the tubing, about 6 inches from the body. b. The sterile water that is inside the Vargas balloon will leak all over the floor of the shower or bath tub. This is expected. c. The catheter will either fall out of the urethra, or just gently pull on it and it will come out. 2. Now, the bladder will gradually fill up over the next few hours. 3. Go ahead and empty the bladder when you feel an urge to void. Please note how strong the urine stream is. a. If the urine stream is normal or close to normal, then everything is good to go. b. If the urine stream is slow or you can not void, then return to the clinic in the afternoon. We will place another Vargas catheter. We will repeat the voiding trial in 3-4 days. All of her questions were answered Elvis Gonzalez MD UroGynecology & Pelvic Reconstructive Surgery [facility] Medical History (Updated 05/14/25 @ 09:16 by Elvis Gonzalez MD) Cystocele, midline Rectocele OAB (overactive bladder) Coronary artery calcification HTN (hypertension) HLD (hyperlipidemia) Self-catheterizes urinary bladder History of UTI Mixed stress and urge urinary incontinence Neurogenic bladder Thyroid disorder Bladder dysfunction Surgical History (Updated 06/30/25 @ 15:21 by Juana Campa RN) Hx of cystoscopy (01/10/25) Hx of cystoscopy (12/25/23) Hx of cystoscopy (03/10/23) History of hysteroscopy (02/13/23) Hx of colonoscopy (12/26/22) History of bladder suspension procedure (1979) History of bladder suspension procedure (~1984) History of bladder suspension procedure (1989) History of bladder surgery (1994) Status post tubal ligation (~1970) History of third molar tooth extraction Family History Father Heart disease Grandfather Heart disease Grandmother Cancer Mother Cancer Grandfather Lung cancer Grandmother No problems noted. Family/Other Diabetes mellitus Brother Diabetes mellitus Social History marital status: household members: spouse lives independently: Yes occupational status: previously employed alcohol intake: current Meds Home Medications and Allergies Home Medications ?Medication ?Instructions ?Recorded ?Confirmed ?Type [VITAMIN D] 2,000 mg PO Q DAY ##0 01/26/13 05/14/25 History OMEGA-3 FATTY ACIDS (FISH OIL) 1,000 mg PO DAILY ##0 07/12/16 05/14/25 History cyclosporine 0.05 % eye drops in a 1 drp OPHTH Q12H ##0 07/12/16 05/14/25 History dropperette (Restasis) [CO-Q 10] 300 mg PO QDAY ##0 07/15/16 05/14/25 History liothyronine 5 mcg tablet 5 mcg PO DAILY 12/06/22 05/14/25 History aspirin 81 mg capsule 81 mg PO DAILY 02/13/23 05/14/25 History rosuvastatin 5 mg tablet 5 mg PO DAILY 07/24/23 05/14/25 History losartan 25 mg tablet 25 mg PO DAILY 12/13/24 05/14/25 History antiarthritic combination no.2 900 mg PO 12/26/24 05/14/25 History mg tablet (glucosamine-chondroitin) ibuprofen 200 mg capsule 200 mg PO Q6H PRN Pain, Mild 12/26/24 05/14/25 History estradiol 0.01% (0.1 mg/gram) 1 g vaginal 2XW #42.5 grams 03/04/25 05/14/25 Rx vaginal cream progesterone micronized 100 mg 100 mg PO QAM #90 caps 03/14/25 05/14/25 Rx capsule estradiol 0.5 mg tablet 0.5 mg PO DAILY #90 tabs 04/08/25 05/14/25 Rx levothyroxine 50 mcg tablet 50 mcg PO DAILY 05/14/25 05/14/25 History losartan 50 mg tablet 50 mg PO DAILY 05/14/25 05/14/25 History oxycodone 5 mg tablet 5 mg PO Q8H PRN pain #15 tabs 07/08/25 07/08/25 Rx Allergies Allergy/AdvReac Type Severity Reaction Status Date / Time wheat Allergy Mild Verified 07/08/25 09:28 doxycycline AdvReac Intermediate Vomiting,Di Verified 07/08/25 09:28 arrhea ciprofloxacin AdvReac Mild VOMITING Verified 07/08/25 09:28 fosfomycin (From Monurol) AdvReac Mild Diarrhea Verified 07/08/25 09:28 gluten (GLUTEN) AdvReac Mild DIARRHEA, Verified 07/08/25 09:28 BLOATING hydrocodone AdvReac Mild VOMITING Verified 07/08/25 09:28 Assessment & Plan Time-Based Coding :: [TOTAL MINUTES] spent with patient and on the chart (including review of chart, obtaining history, exam, reviewing outside data, placing orders, documenting exam and treatment plan, and counseling patient) on [DATE].
[2025-07-21] VITALS (10 sets, daily range): BP systolic 108–142; BP diastolic 58–68; PULSE 70–95; RESP 15–16; TEMP 36.2–37; O2SAT 96–99
--- NOTE | 2025-07-21 | PATH_ITS ---
[facility] Accession Number: [id number] No. of containers..01 Tissue . 01 Material submitted: . uterus - UTERUS, CERVIX . 01 Diagnosis: UTERUS, CERVIX, HYSTERECTOMY: Uterine weight: 59 grams. Uterine cervix: Mild chronic cervicitis and reactive changes. Negative for dysplasia or malignancy. Endometrium: Inactive endometrium with cystic atrophy. Negative for atypia, hyperplasia, or malignancy. Dystrophic vascular calcifications also present. MRV 07/28/2025 1242 Local . 01 Electronically signed: . Jabari Wolf MD, Pathologist NPI- [id number] . 01 Gross description: . Received in formalin with two patient identifiers and uterus, cervix, is a uterus with attached cervix (59 grams, 6.2 cm cervix to fundus by 4 cm cornu to cornu by 3.2 cm anterior to posterior). . The cervix is 2.8 cm long by 3.5 cm diameter with batuista, smooth ectocervical mucosa and attached vaginal cuff. The serosa is bautista, smooth, focally stripped. The endometrium is red-bautista, mildly hemorrhagic, and 0.2 cm thick. The myometrium is pink-bautista, markedly trabeculated with cystic change and is up to 1.5 cm thick. No discrete masses or lesion are grossly identified. Adnexa are not present. . 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 A2: Anterior endomyometrium. A3: Posterior endomyometrium. ([id number]) /BAKARI 07/22/2025 1014 Local . 01 Pathologist provided ICD-10: N81.11, N81.6, N81.4 . 01 CPT . 842281 Specimen Comment: A courtesy copy of this report has been sent to [facility] Pathology Performed at: [address] [address] [address] [address], [place], [place] [id number] MD Dharmesh Plasencia MD Phone: [phone]
[2025-07-21] MEDS: LACTATED RINGERS 1,000 ML 42 ML IV (07:00)
[2025-07-21] MEDS: PHENAZOPYRIDINE 100 MG TABLET 200 MG PO (07:01)
[2025-07-21] MEDS: ACETAMINOPHEN 325 MG TABLET 975 MG PO (07:01)
--- NOTE | 2025-07-21 07:44 | PM.PREOP ---
Pre-operative Note Interval Note History & Physical reviewed/Exam performed by Physician: Yes Changes to H&P: No
--- NOTE | 2025-07-21 07:54 | SUR.OPER ---
Lithotomy on padded OR bed. [place] Pad Positioner under torso. Head on pillow, arms padded and tucked at sides. Legs secured in padded yellow fins stirrups. final positioning done by provider
[2025-07-21] MEDS: LIDOCAINE 1% W/EPI 10ML 20 ML INJ (08:27)
--- NOTE | 2025-07-21 09:52 | SUR.OPER ---
Dr. Gonzalez requested Emma, daughter, be contacted intra-operatively, to expand informed verbal consent to include TVT Sling procedure. Verbal consent obtained via phone, confirmed by Dana Patterson RN. at [phone]
--- NOTE | 2025-07-21 11:13 | P.OP_ITS ---
Operative Date/Time/Diagnoses Date of procedure: 07/21/25 Time of procedure: 08:00 Pre-op diagnosis: Uterine prolapse, rectocele, cystocele Post-op diagnosis: same Procedure & Clinicians Procedure: Procedures Operation Date: 07/21/25 07:45 Actual Procedure Side Surgeon p Total Vaginal Hysterectomy sacrospinous ligament vaginal vault suspension, cystoscopy Elvis Gonzalez MD s Posterior Colporrhaphy Elvis Gonzalez MD Operative Notes Findings: Operative Note Surgeon:? Elvis Gonzalez MD Boat Cleaning Supervisor:?? Stefani Steward MD Pre-Op Diagnosis:?? Uterine prolapse, cystocele, rectocele Prior Bladder Augmentation surgery (with small bowel) Post-Op Diagnosis:?? Same, likely prior urethral sling potential stress incontinence Procedure:?? Vaginal hysterectomy, ileococcygeal muscle vaginal vault suspension (use CPT 38745) posterior colporrhaphy, cystoscopy Findings (brief): ? 1.? EUA with stage 3 POP as noted on preop exam. mainly uterine prolapse. Normal size uterus, tubes, ovaries.?? TVH in usual fashion.??no significant uterine or pelvic adhesions. ? 2.? ileococcygeal muscle vaginal vault suspension with 2 sutures of 2-0 vicryl on each side.? This vault suspension was chosen so as not to pull down on the anterior vagina and create potential stress incontinence as below. Excellent support of the upper posterior vagina. There was mild prolapse of the upper anterior vagina, not treated, see below. ? 3.? Cystoscopy with normal bladder, urethra, ureters,? no injury, no lesions, bilateral ureteral jets noted.? the prior Bladder augmentation with small bowel had a normal appearance (velvety mucosa from the small bowel portion, nl bladder mucosa from the bladder portion) ? 4.? Posterior colporrhaphy in usual fashion. 6 sutures of levator plication done. about 7 mm of redundant vaginal mucosa removed each side. 5. There was excellent support of the urethra. It seems like there was a prior sling. There was unusual thickened scarring near the urethrovesical junction, just distal to the Fernández balloon, therefore just distal to the internal urethral meatus. There was some mild prolapse of the upper anterior vaginal wall. This was not corrected. When this was elevated into a normal anatomic position, it triggered significant urine loss from the urethra. When it was not elevated, with mild prolapse, there was no urine loss. Therefore, the intra op decision was made to not correct the upper cystocele and to not correct the upper vaginal prolapse anteriorly, in order to not reveal the potential stress incontinence that she would have if this was corrected Date of Surgery:? 07-21-2025 Complications:? none Specimens:? uterus, cervix Anesthesia Technique:?? General endotracheal Estimated Blood Loss (mls):? 50 Blood Replacement (mls):? none Drains:? none Condition:? Stable Procedure in detail: After consent was confirmed, the patient was taken to the operating room and placed under general anesthesia without incident.? Sequential compression devices were in place and active.? She received perioperative antibiotics.? She was then prepped and draped in the usual sterile fashion after placement in the dorsal lithotomy position using the Carlyle stirrups.? A Fernández catheter was placed.? A weighted speculum was placed in the vagina and the cervix was grasped with a tenaculum. The cervix was circumferentially injected with 10 cc of 0.5% lidocaine / epinephrine 1:200,000.? A circumferential incision was made with electrocautery through the vaginal mucosa and carried down to the underlying cervical stroma. The posterior peritoneum was entered sharply and a retractor was placed.? Curved Kelby clamps and 0-vicryl sutures were used.? The uterosacral ligaments were clamped, cut, and ligated bilaterally, and then tagged for use later in the case.? The anterior peritoneum entered sharply, and a fernández catheter was placed.? The cardinal ligaments were clamped, cut, and ligated bilaterally.? The uterine vessels were clamped, cut, and ligated bilaterally. The broad ligaments were clamped, cut, and ligated bilaterally.? The utero-ovarian ligaments were clamped, cut, and ligated bilaterally, and the cervix and uterus were removed.? Inspection of all pedicles was completed and hemostatis was assured.? The fallopian tubes and ovaries appeared grossly normal an were left in situ. The vaginal cuff was closed with 2 running sutures of 0- vicryl. The Fernández catheter was removed, and cystoscopy was performed with a 70 degree lens. There was no trocar injury, and the bladder, ureters, and urethra were normal.? see findings above. The Fernández catheter was reinserted.? With cystoscopy fluid in the bladder, and manipulation of the upper anterior vagina, potential stress incontinence was revealed as demonstrated above. This led to the decision to do a posterior repair and not do an anterior repair, and to do an ileal coccygeal muscle vaginal vault suspension, instead of a uterosacral ligament or sacrospinous ligament vaginal vault suspension. ? Attention was then turned to the posterior vaginal wall. The posterior vaginal mucosa was grasped with Allis clamps and was injected with 20 cc of 0.5% lidocaine / epinephrine 1:200,000.? A full-thickness midline 8 cm incision was made in the vaginal mucosa, from the posterior vaginal introitus extending up the posterior vagina to the apex.? The vaginal mucosa was dissected off of the underlying rectovaginal fascia / rectum until the side sainz were reached.? This completed the dissection for the rectocele and the ileococcygeal muscle vaginal vault suspension. The posterior vaginal levators were plicated with 6 horizontal mattress sutures of 2-0 vicryl.? A rectal exam was performed during the placement of the sutures to avoid rectal injury.? No sutures were noted in the rectum at the end of the procedure.? This corrected the rectocele. Next, 2 sutures of 2-0 vicryl suture were placed through the upper posterior vagina, about 1 cm below the vaginal cuff. The 1st was placed on the right side, about 1 cm away from midline, passing from the vagina, through the ileococcygeal muscle, and then back through the vagina on the same side. This was tagged. Another suture was placed similarly on the left side, and then tagged. These sutures were both tied down to elevate the upper posterior vagina. This completed the ileococcygeal muscle vaginal vault suspension. Next, near the rectocele repair was finished. Excess posterior vaginal mucosa from the rectocele was trimmed and the incision was closed with 2-0 vicryl.? Hemostasis was noted. Sponge, needle and instrument count was correct.? The patient tolerated the procedure well and was taken to the recovery room in stable condition. An additional set of hands was needed to perform the surgery, so a surgical dental assistant was needed for the case. The medical research assistant provided retraction and exposure throughout the case. Elvis Gonzalez MD UroGynecology & Pelvic Reconstructive Surgery [place], [place] Applied: none
== END 2025-07-21 12:55 | disposition home or self-care (01) ==
LOC: OR 06:20 → AC 06:22
PROVIDERS: PCP Family Medicine; Referring Provider Family Medicine; Visit Provider Obstetrics & Gynecology Gynecology
PROC: (CPT 58260; principal; 2025-07-21 07:45)
PROC: (CPT 57282; 2025-07-21 07:45)
DX: N81.3 Complete uterovaginal prolapse (principal); N32.81 Overactive bladder; N39.41 Urge incontinence; N72 Inflammatory disease of cervix uteri; N85.8 Other specified noninflammatory disorders of uterus
CPT/HCPCS: 57282; 57250; 58260; J0689; J1100; J1885; J2405; J2704; J3010; J7120